=== PATIENT | male | born 1960 | race African-American/Black ===

== ENCOUNTER 2017-08-31 18:50 | Emergency (ER) | payer OTHER ==
[2017-08-31 19:13] VITALS: BP 156/90; PULSE 102; TEMP 100.6; BMI 22.1
--- NOTE | 2017-08-31 19:13 | PDOC ---
Rapid Medical Evaluation Chief Complaint: Respiratory Time Seen by Provider: 08/31/17 19:12 Medical Evaluation: Allergies Allergy/AdvReac Type Severity Reaction Status Date / Time No Known Allergies Allergy Verified 08/31/17 19:10 08/31/17 19:12 57yo Male patient with no significant past medical history presents to ED c/o cough, fever x 3 days that is worsening. + smoker.
--- NOTE | 2017-08-31 20:52 | PDOC ---
History of Present Illness - General Chief Complaint: Respiratory Stated Complaint: COUGHING Time Seen by Provider: 08/31/17 19:12 - History of Present Illness Initial Comments: 08/31/17 20:48 CHIEF COMPLAINT: cough HISTORY OF PRESENT ILLNESS: 57 yo M with no significant PMH presents to [facility] with cough x 3 days with fever. Patient denies vomiting or diarrhea and reports this feels like "when I have bronchitis sometimes." He denies any chest pain, palpitations, or shortness of breath. PAST MEDICAL HISTORY: Denies past medical history FAMILY HISTORY: Denies SOCIAL HISTORY: Current daily smokder. Denies alcohol, illicit drug use. SURGICAL HISTORY: Denies ALLERGIES: No known drug allergies REVIEW OF SYSTEMS General/Constitutional: Fever x 2 days. Denies weakness, weight change. HEENT: Denies change in vision. Denies ear pain or discharge. Denies sore throat. Cardiovascular: Denies chest pain or shortness of breath. Respiratory: Cough x 3 days. Denies wheezing, or hemoptysis. Gastrointestinal: Denies nausea, vomiting, diarrhea or constipation. Denies rectal bleeding. Genitourinary: Denies dysuria, frequency, or change in urination. Musculoskeletal: Denies joint or muscle swelling or pain. Denies neck or back pain. Skin and breasts: Denies rash or easy bruising. PHYSICAL EXAM General Appearance: Well-appearing, appropriately dressed. No apparent distress. HEENT: EOMI, PERRLA, normal ENT inspection, normal voice, TMs normal, pharynx normal. No conjunctival pallor. No photophobia, scleral icterus. Respiratory/Chest: Lungs CTAB. No shortness of breath, chest tenderness, respiratory distress, accessory muscle use. No crackles, rales, rhonchi, stridor , wheezing, dullness Cardiovascular: RRR. S1, S2. Gastrointestinal/Abdominal: Normal bowel sounds. Abdomen soft, non-distended. No tenderness or rebound tenderness. No organomegaly, pulsatile mass, guarding , hernia, hepatomegaly, splenomegaly. Musculoskeletal/Extremities: Normal inspection. FROM of all extremities, normal capillary refill. Pelvis Stable. No CVA tenderness. No tenderness to extremities, pedal edema, swelling, erythema or deformity. Integumentary: Appropriate color, dry, warm. No cyanosis, erythema, jaundice or rash Neurologic: balling head tender II-XII intact. Fully oriented, alert. Appropriate mood/affect. Motor strength 5/5. No appreciable EOM palsy, facial droop or sensory deficit. 08/31/17 20:52 Past History - Past Medical History Allergies/Adverse Reactions: Allergies Allergy/AdvReac Type Severity Reaction Status Date / Time No Known Allergies Allergy Verified 08/31/17 19:10 Home Medications: Ambulatory Orders Azithromycin [Zithromax 250mg Tablets -] 250 mg PO UTDICT #6 tab 08/31/17 Benzonatate [Tessalon Pearls -] 100 mg PO TID PRN #21 capsule 08/31/17 - Suicide/Smoking/Psychosocial Hx Smoking History: Current every day smoker Have you smoked in the past 12 months: Yes Number of Cigarettes Smoked Daily: 8 Information on smoking cessation initiated: No Hx Alcohol Use: No Drug/Substance Use Hx: No Substance Use Type: None *Physical Exam - Vital Signs Last Vital Signs Temp Pulse Resp BP Pulse Ox 100.6 F H 102 H 20 156/90 98 08/31/17 19:10 08/31/17 19:10 08/31/17 19:10 08/31/17 19:10 08/31/17 19:10 ED Treatment Course - ADDITIONAL ORDERS Additional order review: 08/31/17 19:15 Influenza Types A,B Antigen (GATITO) - Preliminary Nasopharyngeal Swab - Preliminary Medical Decision Making - Medical Decision Making 08/31/17 20:54 57 yo M with no significant PMH presents to [facility] with cough x 3 days with fever. -CXR CXR negative flu negative 08/31/17 20:54 Will treat for bronchitis. Advised patient to take medication as prescribed and follow up with PCP if symptoms persist]. Advised patient of signs and symptoms for return to ED. Patient verbalized understanding and agrees to plan. *DC/Admit/Observation/Transfer Diagnosis at time of Disposition: Bronchitis - Discharge Dispostion Disposition: HOME Condition at time of disposition: Stable Admit: No - Prescriptions Prescriptions: Azithromycin [Zithromax 250mg Tablets -] 250 mg PO UTDICT #6 tab Benzonatate [Tessalon Pearls -] 100 mg PO TID PRN #21 capsule PRN Reason: Cough - Referrals Referrals: Steve Rosen MD [Staff Physician] - - Patient Instructions Printed Discharge Instructions: DI for Acute Bronchitis Additional Instructions: Please take medications as prescribed. Follow up with a primary care doctor next week if symptoms persist. If you develop any shortness of breath, chest pain, vomiting, diarrhea, or any new or worsening symptoms, please return to the ER. - Post Discharge Activity
== END 2017-08-31 20:57 | disposition home or self-care (01) ==
LOC: JERFT 18:50
DX: J40 Bronchitis, not specified as acute or chronic (principal); F17.210 Nicotine dependence, cigarettes, uncomplicated
CPT/HCPCS: 71046-TC; 87804; 99281-25

== ENCOUNTER 2018-09-24 17:56 | Emergency (ER) | payer OTHER ==
--- NOTE | 2018-09-24 18:32 | PDOC ---
Rapid Medical Evaluation Time Seen by Provider: 09/24/18 18:29 Medical Evaluation: Allergies Allergy/AdvReac Type Severity Reaction Status Date / Time No Known Allergies Allergy Verified 10/12/17 16:54 09/24/18 18:29 Pt presents for constant cough for 2 weeks. States cough is productive. Denies fever Exam: lungs CTAB Orders: Nothing Pt to proceed to the ED for evaluation Discharge Disposition - Diagnosis Cough - Referrals - Patient Instructions - Post Discharge Activity
[2018-09-24 18:33] VITALS: BP 135/78; PULSE 90; TEMP 98.6; BMI 22.0
--- NOTE | 2018-09-24 19:30 | PDOC ---
History of Present Illness - General Chief Complaint: Cold Symptoms Stated Complaint: CAUGHING Time Seen by Provider: 09/24/18 18:29 History Source: Patient Exam Limitations: Clinical Condition - History of Present Illness Initial Comments: 09/24/18 19:25 Patient with no significant past medical history with smoking 7 cigarettes per day present with complaint of 2 weeks history of persistent dry cough, nasal congestion and runny nose. Patient denies shortness of breath, fever, chills or sore throat. Patient denies any other symptoms Timing/Duration: other (2 weeks) Past History - Past Medical History Allergies/Adverse Reactions: Allergies Allergy/AdvReac Type Severity Reaction Status Date / Time No Known Allergies Allergy Verified 09/24/18 18:32 Home Medications: Ambulatory Orders Azithromycin [Zithromax 250mg Tablets -] 250 mg PO UTDICT #6 tab 09/24/18 Ipratropium [place] 2 spray NS BID PRN #1 spray 09/24/18 Methylprednisolone [Medrol Dose Yazan] 4 mg PO ASDIR #21 tablet 09/24/18 COPD: No - Suicide/Smoking/Psychosocial Hx Smoking History: Current every day smoker Have you smoked in the past 12 months: Yes Number of Cigarettes Smoked Daily: 7 Information on smoking cessation initiated: Yes 'Breaking Loose' booklet given: 10/12/17 Hx Alcohol Use: No Drug/Substance Use Hx: No Substance Use Type: None Review of Systems - Review of Systems Able to Perform ROS?: Yes Is the patient limited Ethiopian proficient: No Constitutional: No: Chills, Fever, Malaise HEENTM: Yes: Symptoms Reported, See HPI, Nose Congestion. No: Eye Pain, Blurred Vision, Tearing, Recent change in vision, Double Vision, Cataracts, Ear Pain, Ocular Prothesis, Ear Discharge, Nose Pain, Tinnitus, Nose Bleeding, Hearing Loss, Throat Pain, Throat Swelling, Mouth Pain, Dental Problems, Difficulty Swallowing, Mouth Swelling, Other Respiratory: Yes: Symptoms reported, See HPI, Cough. No: Orthopnea, Shortness of Breath, SOB with Exertion, SOB at Rest, Stridor, Wheezing, Productive cough, Hemoptysis, Other Cardiac (ROS): No: Symptoms Reported, See HPI, Chest Pain, Edema, Irregular Heart Rate, Lightheadedness, Palpitations, Syncope, Chest Tightness, Other ABD/GI: No: Nausea, Vomiting Neurological: No: Headache, Dizziness All Other Systems: Reviewed and Negative *Physical Exam - Vital Signs Last Vital Signs Temp Pulse Resp BP Pulse Ox 98.6 F 90 20 135/78 97 09/24/18 18:32 09/24/18 18:32 09/24/18 18:32 09/24/18 18:32 09/24/18 18:32 - Physical Exam Comments: 09/24/18 19:26 GENERAL: Well developed, well nourished. Awake and alert. No acute distress. HEENT: Normocephalic, atraumatic. PERRLA, EOMI. No conjunctival pallor. Sclera are non-icteric. Moist mucous membranes. Oropharynx is clear. NECK: Supple. Full ROM. CARDIOVASCULAR: Regular rate and rhythm. No murmurs, rubs, or gallops. Distal pulses are 2+ and symmetric. PULMONARY: No evidence of respiratory distress. Lungs clear to auscultation bilaterally. No wheezing, rales or rhonchi. ABDOMINAL: Soft. Non-tender. Non-distended. No rebound or guarding. No organomegaly. Normoactive bowel sounds. MUSCULOSKELETAL Normal range of motion at all joints. SKIN: Warm and dry. no cyanosis. Normal capillary refill. No rashes. No jaundice. NEUROLOGICAL: Alert, awake, appropriate. Gait is normal without ataxia. PSYCHIATRIC: Cooperative. Good eye contact. Appropriate mood General Appearance: Yes: Nourished, Appropriately Dressed. No: Apparent Distress Moderate Sedation - Procedure Monitoring Vital Signs: Procedure Monitoring Vital Signs Temperature 98.6 F 09/24/18 18:32 Pulse Rate 90 09/24/18 18:32 Respiratory Rate 20 09/24/18 18:32 Blood Pressure 135/78 09/24/18 18:32 O2 Sat by Pulse Oximetry (%) 97 09/24/18 18:32 ED Treatment Course - RADIOLOGY Radiology Studies Ordered: Category Date Time Status CHEST PA & LAT [RAD] Stat Radiology 09/24/18 19:24 Ordered Medical Decision Making - Medical Decision Making 09/24/18 19:27 Patient with no significant past medical history with smoking 7 cigarettes per day present with complaint of 2 weeks history of persistent dry cough, nasal congestion and runny nose. Patient denies shortness of breath, fever, chills or sore throat. Lungs clear to auscultation bilateral. Normal cardiovascular exam. Chest x-ray ordered to rule out any acute infiltrate or pathology. Patient's symptoms likely URI symptoms versus bronchitis. Patient will be treated on an outpatient for bronchitis if negative chest x-ray 09/24/18 19:41 Chest x-ray normal and shows no acute infiltrate. Patient is stable for discharge for outpatient treatment for bronchitis with PCP follow-up. *DC/Admit/Observation/Transfer Diagnosis at time of Disposition: Cough, Bronchitis Upper respiratory infection Qualifiers: URI type: unspecified URI Qualified Code(s): J06.9 - Acute upper respiratory infection, unspecified - Discharge Dispostion Disposition: HOME Condition at time of disposition: Stable Decision to Admit order: No - Prescriptions Prescriptions: Azithromycin [Zithromax 250mg Tablets -] 250 mg PO UTDICT #6 tab Ipratropium [place] 2 spray NS BID PRN #1 spray PRN Reason: nasal congestion Methylprednisolone [Medrol Dose Yazan] 4 mg PO ASDIR #21 tablet - Referrals - Patient Instructions Printed Discharge Instructions: DI for Acute Bronchitis Additional Instructions: Your chest x-ray shows no pneumonia. Take medication as prescribed. Increase fluid intake. Follow-up with primary care as needed. - Post Discharge Activity
== END 2018-09-24 19:48 | disposition home or self-care (01) ==
LOC: JERFT 17:56
DX: J40 Bronchitis, not specified as acute or chronic (principal); J06.9 Acute upper respiratory infection, unspecified; F17.210 Nicotine dependence, cigarettes, uncomplicated
CPT/HCPCS: 71046-TC-FY; 99281-25

== ENCOUNTER 2018-10-30 15:07 | Emergency (ER) | payer OTHER ==
[2018-10-30 15:27] VITALS: BP 150/84; PULSE 88; TEMP 98.6; BMI 22.6
--- NOTE | 2018-10-30 16:46 | PDOC ---
History of Present Illness - General Chief Complaint: Cold Symptoms Stated Complaint: COUGH Time Seen by Provider: 10/30/18 16:24 - History of Present Illness Initial Comments: 10/30/18 16:42 58-year-old male without comorbidities presents for evaluation of nasal congestion and intermittent cough without fever times one month. Seen and treated at a month ago for bronchitis he hasn't gotten any better. He was treated with azithromycin. Past History - Past Medical History Allergies/Adverse Reactions: Allergies Allergy/AdvReac Type Severity Reaction Status Date / Time No Known Allergies Allergy Verified 10/30/18 15:23 Home Medications: Ambulatory Orders Azithromycin [Zithromax 250mg Tablets -] 250 mg PO UTDICT #6 tab 09/24/18 Ipratropium [place] 2 spray NS BID PRN #1 spray 09/24/18 Methylprednisolone [Medrol Dose Yazan] 4 mg PO ASDIR #21 tablet 09/24/18 Albuterol Sulfate [Proventil HFA Inhaler -] 1 - 2 inh PO QID PRN #1 inhaler 02/05 Azithromycin [Zithromax 250mg Tablets -] 250 mg PO DAILY #6 tab 09/25/18 Methylprednisolone [Medrol Dose Yazan] 4 mg PO ASDIR #21 tablet 09/25/18 Amox-Tr/K Cl [Augmentin - 875Mg Tablet] 1 tab PO BID #20 tablet 10/30/18 Budesonide [Rhinocort Allergy] 1 spray NS ONCE #1 spray.pump 10/30/18 COPD: No - Suicide/Smoking/Psychosocial Hx Smoking History: Current every day smoker Have you smoked in the past 12 months: Yes Number of Cigarettes Smoked Daily: 20 Information on smoking cessation initiated: No 'Breaking Loose' booklet given: 10/12/17 Hx Alcohol Use: No Drug/Substance Use Hx: No Substance Use Type: None Review of Systems - Review of Systems Constitutional: No: Fever HEENTM: Yes: Nose Congestion Respiratory: Yes: Cough *Physical Exam - Vital Signs Last Vital Signs Temp Pulse Resp BP Pulse Ox 98.6 F 88 18 150/84 98 10/30/18 15:24 10/30/18 15:24 10/30/18 15:24 10/30/18 15:24 10/30/18 15:24 - Physical Exam Comments: 10/30/18 16:42 HEAD: NC/AT EYES: Conjuntiva clear Ears: Canals and TM's normal NOSE: Clear discharge injected turbinates THROAT: Moist mucous membrances, oral pharanx clear, uvula midline NECK: Supple without adenopathy CARDIAC: S1 S2 LUNGS: CTA Full and Equal breath sounds ABDOMEN: Soft NT ND MS: Full ROM in all joints without edema NEUROLOGIC: No gross sensory or motor deficits, NVID SKIN: Normal color and temperature no lesions or rashes Moderate Sedation - Procedure Monitoring Vital Signs: Procedure Monitoring Vital Signs Temperature 98.6 F 10/30/18 15:24 Pulse Rate 88 10/30/18 15:24 Respiratory Rate 18 10/30/18 15:24 Blood Pressure 150/84 10/30/18 15:24 O2 Sat by Pulse Oximetry (%) 98 10/30/18 15:24 Medical Decision Making - Medical Decision Making 10/30/18 16:43 Second visit inside of a month I will have patient follow-up with ear nose and throat in the meantime I believe this to be a sinusitis I'll treat him with Augmentin and steroid nasal spray. *DC/Admit/Observation/Transfer Diagnosis at time of Disposition: Sinusitis - Discharge Dispostion Disposition: HOME Condition at time of disposition: Stable Decision to Admit order: No - Prescriptions Prescriptions: Amox-Tr/K Cl [Augmentin - 875Mg Tablet] 1 tab PO BID #20 tablet Budesonide [Rhinocort Allergy] 1 spray NS ONCE #1 spray.pump - Referrals Referrals: Leo Jackson MD [Staff Physician] - - Patient Instructions Printed Discharge Instructions: Sinusitis, DI for Sinusitis Additional Instructions: Return to the emergency room for worsening symptoms. Please follow-up with ear nose and throat doctor in 1-2 days for further evaluation and treatment options. Please take antibiotics as directed and finish the entire course and use the nasal spray as directed. - Post Discharge Activity
== END 2018-10-30 16:50 | disposition home or self-care (01) ==
LOC: JERFT 15:07
DX: J32.9 Chronic sinusitis, unspecified (principal); F17.210 Nicotine dependence, cigarettes, uncomplicated
CPT/HCPCS: 99281-25

== ENCOUNTER 2019-06-05 03:32 | Inpatient (IN) | payer OTHER ==
--- NOTE | 2019-06-05 04:48 | PDOC ---
History of Present Illness - General Chief Complaint: Pain Stated Complaint: ABD PAIN Time Seen by Provider: 06/05/19 04:46 History Source: Patient Exam Limitations: No Limitations - History of Present Illness Initial Comments: Crispin Caro is a 58 yo M who denies having any pmh who presents to the [facility] er with 2 weeks of worsening diffuse abdominal pain. The patient states that he has been seen for this pain in the past but it went away. Tonight it has gotten much worse than it has ever been before. He reports that the pain is primarily located in his luzma-umbilical region. He states the pain is pressure like like, rated 10/10, and does not radiate to the groin or the back. The patient has not been experiencing nausea, vomiting, diarrhea or constipation. He had a normal bowel movement last night. He denies decreased PO intake and is asking for water here in the ED. Denies fevers, chills, chest pain, SOB, difficulty breathing, dysuria, frequency , urgency, or back pain. PCP: None PSH: None reported Social Hx: Smokes ten cigarettes/day. Denies alcohol or other illicit drug usage. Allergies: NKA, NKDA Past History - Past Medical History Allergies/Adverse Reactions: Allergies Allergy/AdvReac Type Severity Reaction Status Date / Time No Known Allergies Allergy Verified 06/05/19 04:20 Home Medications: Ambulatory Orders Azithromycin [Zithromax 250mg Tablets -] 250 mg PO UTDICT #6 tab 09/24/18 Ipratropium [place] 2 spray NS BID PRN #1 spray 09/24/18 Methylprednisolone [Medrol Dose Yazan] 4 mg PO ASDIR #21 tablet 09/24/18 Albuterol Sulfate [Proventil HFA Inhaler -] 1 - 2 inh PO QID PRN #1 inhaler 02/05 Azithromycin [Zithromax 250mg Tablets -] 250 mg PO DAILY #6 tab 09/25/18 Methylprednisolone [Medrol Dose Yazan] 4 mg PO ASDIR #21 tablet 09/25/18 Amox-Tr/K Cl [Augmentin - 875Mg Tablet] 1 tab PO BID #20 tablet 10/30/18 Budesonide [Rhinocort Allergy] 1 spray NS ONCE #1 spray.pump 10/30/18 COPD: No - Psycho Social/Smoking Cessation Hx Smoking History: Never smoked Have you smoked in the past 12 months: Yes Number of Cigarettes Smoked Daily: 20 'Breaking Loose' booklet given: 10/12/17 Hx Alcohol Use: No Drug/Substance Use Hx: No Substance Use Type: None Review of Systems - Review of Systems Able to Perform ROS?: Yes Comments:: CONSTITUTIONAL: Absent: fever, chills, diaphoresis, generalized weakness, malaise, loss of appetite HEENT: Absent: rhinorrhea, nasal congestion, throat pain, throat swelling, difficulty swallowing, mouth swelling, ear pain, eye pain, visual Changes CARDIOVASCULAR: Absent: chest pain, syncope, palpitations, irregular heart rate, lightheadedness , peripheral edema RESPIRATORY: Absent: cough, shortness of breath, dyspnea with exertion, orthopnea, wheezing, stridor, hemoptysis GASTROINTESTINAL: Present: Abdominal pain, abdominal distension, Absent: nausea, vomiting, diarrhea, constipation, melena, hematochezia GENITOURINARY: Absent: dysuria, frequency, urgency, hesitancy, hematuria, flank pain, genital pain MUSCULOSKELETAL: Absent: myalgia, arthralgia, joint swelling SKIN: Absent: rash, itching, pallor HEMATOLOGIC/IMMUNOLOGIC: Absent: easy bleeding, easy bruising, lymphadenopathy, frequent infections ENDOCRINE: Absent: unexplained weight gain, unexplained weight loss, heat intolerance, cold intolerance NEUROLOGIC: Absent: headache, focal weakness or paresthesias, dizziness, unsteady gait, seizure, mental status changes, bladder or bowel incontinence PSYCHIATRIC: Absent: anxiety, depression, suicidal or homicidal ideation, hallucinations. *Physical Exam - Vital Signs Last Vital Signs Temp Pulse Resp BP Pulse Ox 99 F 105 H 16 160/95 99 06/05/19 04:16 06/05/19 04:16 06/05/19 04:16 06/05/19 04:16 06/05/19 04:16 - Physical Exam Comments: GENERAL: Has a scent of cigarettes. Skinny. Well developed, well nourished. Awake and alert. Mild distress. HEENT: Normocephalic, atraumatic. PERRLA, EOMI. No conjunctival pallor. Sclera are non- icteric. Moist mucous membranes. Oropharynx is clear. NECK: Supple. Full ROM. No JVD. CARDIOVASCULAR: Tachycardic rate. Regular rhythm. No murmurs, rubs, or gallops. Distal pulses are 2+ and symmetric. PULMONARY: No evidence of respiratory distress. Lungs clear to auscultation bilaterally. No wheezing, rales or rhonchi. ABDOMINAL: The abdomen is tense. There is diffuse pain to palpation. The patient is guarding his abdomen and he is experiencing rebound tenderness. Normoactive bowel sounds. MUSCULOSKELETAL Normal range of motion at all joints. No bony deformities or tenderness. No CVA tenderness. EXTREMITIES: No cyanosis. No clubbing. No edema. No calf tenderness. SKIN: Warm and dry. Normal capillary refill. No rashes. No jaundice. NEUROLOGICAL: Alert, awake. Normal speech. Gait is normal without ataxia. PSYCHIATRIC: Cooperative. Good eye contact. ED Treatment Course - LABORATORY CBC & Chemistry Diagram: 06/05/19 05:35 06/05/19 05:35 Medical Decision Making - Medical Decision Making Crispin Caro is a 58 yo M who denies having any pmh who presents to the [facility] er with 2 weeks of worsening diffuse abdominal pain. The patient states that he has been seen for this pain in the past but it went away. Tonight it has gotten much worse than it has ever been before. He reports that the pain is primarily located in his luzma-umbilical region. He states the pain is pressure like like, rated 10/10, and does not radiate to the groin or the back. The patient has not been experiencing nausea, vomiting, diarrhea or constipation. He had a normal bowel movement last night. He denies decreased PO intake and is asking for water here in the ED. Denies fevers, chills, chest pain, SOB, difficulty breathing, dysuria, frequency , urgency, or back pain. Vital Signs Temp Pulse Resp BP Pulse Ox 99 F 105 H 16 160/95 99 06/05/19 04:16 06/05/19 04:16 06/05/19 04:16 06/05/19 04:16 06/05/19 04:16 - Tachycardic - Hypertensive DDx IBNLT: peritonitis, appendicitis, diverticulitis, perforation, pancreatitis , colitis, cholecystitis, UTI/pylo, renal colic, electrolyte/metabolic disturbance Plan: Labs, EKG, Urine, CXR, CTAP, Iv hydration, analgesia, re-assess. CXR: No free air under the diaphragm EKG: Sinus tachycardia rate of 126, narrow complexes, left atrial enlargement, normal axis, no ST elevations or depressions, no Q waves, no abnormal TWI's, QTc 463, AR 130. Labs: Leukocytosis of 20 with left shift. Urine: Unremarkable CTAP: Emphysematous gastritis - Patient will be signed out to Dr. Licona on the Day team to complete ED workup including CTAP, urine, possible surgical consult, and final ED disposition Discharge - Discharge Information Problems reviewed: Yes Clinical Impression/Diagnosis: Emphysematous gastritis Abdominal pain Qualifiers: Abdominal location: generalized Qualified Code(s): R10.84 - Generalized abdominal pain Condition: Guarded - Admission Yes - Follow up/Referral - Patient Discharge Instructions - Post Discharge Activity
[2019-06-05] MEDS ORDERED: ACETAMINOPHEN 1000 MG/100 ML VIAL (NON FORMULARY) IVPB ONE (04:55)
[2019-06-05] MEDS ORDERED: SODIUM CHLORIDE 1,000 ML IV STA (04:55)
[2019-06-05] MEDS ORDERED: ONDANSETRON 4 MG/2 ML VIAL IVPUSH ONE (04:57)
[2019-06-05] MEDS ORDERED: ONDANSETRON 4 MG/2 ML VIAL ONE (05:33)
[2019-06-05] MEDS ORDERED: ACETAMINOPHEN INJECTION 100 ML IVPB ONE (05:47)
[2019-06-05 05:56] LABS: BASO % 0.3 % (0-2.0); EOS % 0.4 % (0-4.5); HEMATOCRIT 48.9 % (35.4-49); HEMOGLOBIN 16.4 GM/dL (11.7-16.9); LYMPH % 9.5 % (8-40); MCH 30.8 pg (25.7-33.7); MCHC 33.5 g/dl (32.0-35.9); MEAN CELL VOLUME 91.8 fl (80-96); MEAN PLT VOLUME 9.3 fl (7.5-11.1); NEUT % 86.8 % (42.8-82.8); PLATELET COUNT 299 K/MM3 (134-434); RBC 5.32 M/mm3 (4.00-5.60); RDW 13.8 % (11.9-15.9); WHITE BLOOD COUNT 20.6 K/mm3 (4.0-10.0)
[2019-06-05 06:03] LABS: INR 1.08 (0.83-1.09); PROTHROMBIN TIME (PATIENT) 12.8 SEC (9.7-13.0)
--- NOTE | 2019-06-05 06:08 | PDOC ---
Attending Attestation - Resident Resident Name: Darwin Sadler - ED Attending Attestation I have performed the following: I have examined & evaluated the patient, The case was reviewed & discussed with the resident, I agree w/resident's findings & plan, Exceptions are as noted - HPI HPI: 06/05/19 06:08 58 yo male no pmhx here with c/o abd pain. states his abd pain has been progressively getting worse for 2 weesk. no n/v last bm was yesterday. no f/c no mod factors. pain is generalized. suparpubic. sharp pressure. like no flank pain. no n/v. - Physicial Exam PE: 06/05/19 06:13 awake alert lungs clear bilat heart rrr no mrg abd soft bilat lower quad ttp with rebound and guarding. ext wwp no edema. no calf tendernesss. skin warm and dry. - Medical Decision Making 06/05/19 06:14 58 yo m with 2 weeks abo dpain, ttp on exam, pos rebound and guarding. differential apendicitis diverticulitis coliis. uti. plan ct a/p labs ua. pain contol ivf.
[2019-06-05 06:12] LABS: MAGNESIUM 1.8 mg/dL (1.8-2.4)
[2019-06-05 06:16] LABS: LIPASE 216 U/L (73-393)
[2019-06-05 06:18] LABS: ALBUMIN 3.8 g/dl (3.4-5.0); BILIRUBIN,TOTAL 0.4 mg/dL (0.2-1); BLOOD UREA NITROGEN 17.8 mg/dL (7-18); CALCIUM 9.7 mg/dL (8.5-10.1); CREATININE 1.1 mg/dL (0.55-1.3); POTASSIUM 4.9 mmol/L (3.5-5.1); TOT PROT 7.9 g/dl (6.4-8.2)
[2019-06-05 06:35] LABS: PLATELET ESTIMATE ADEQUATE
[2019-06-05] MEDS ORDERED: SODIUM CHLORIDE 0.9% 500 ML INFUS.BAG IV ONE (06:48)
[2019-06-05] MEDS ORDERED: morphine SULFATE 4 MG/ML VIAL ONE ×2 (06:52→11:56)
--- NOTE | 2019-06-05 07:20 | PDOC ---
*Physical Exam - Vital Signs Last Vital Signs Temp Pulse Resp BP Pulse Ox 99 F 105 H 16 160/95 99 06/05/19 04:16 06/05/19 04:16 06/05/19 04:16 06/05/19 04:16 06/05/19 04:16 ED Treatment Course - LABORATORY CBC & Chemistry Diagram: 06/05/19 05:35 06/05/19 05:35 - ADDITIONAL ORDERS Additional order review: Laboratory Results 06/05/19 06/05/19 06/05/19 05:35 05:35 05:35 PT with INR 12.80 INR 1.08 Sodium Potassium Chloride Carbon Dioxide Anion Gap BUN Creatinine Est GFR (CKD-EPI)AfAm Est GFR (CKD-EPI)NonAf Random Glucose Lactic Acid Calcium Phosphorus 3.0 Magnesium 1.8 Total Bilirubin AST ALT Alkaline Phosphatase Troponin I Total Protein Albumin Lipase Blood Type B POSITIVE Antibody Screen Negative 06/05/19 06/05/19 06/05/19 05:35 05:35 05:35 PT with INR INR Sodium 140 Potassium 4.9 Chloride 105 Carbon Dioxide 29 Anion Gap 6 L BUN 17.8 Creatinine 1.1 Est GFR (CKD-EPI)AfAm 85.91 Est GFR (CKD-EPI)NonAf 74.12 Random Glucose 114 H Lactic Acid 2.0 Calcium 9.7 Phosphorus Magnesium Total Bilirubin 0.4 AST 30 ALT 25 Alkaline Phosphatase 105 Troponin I < 0.02 Total Protein 7.9 Albumin 3.8 Lipase 216 Blood Type Antibody Screen 06/05/19 05:35 RBC 5.32 MCV 91.8 MCHC 33.5 RDW 13.8 MPV 9.3 Neutrophils % 86.8 H Lymphocytes % 9.5 Monocytes % 3.0 L Eosinophils % 0.4 Basophils % 0.3 - Medications Given in the ED: ED Medications Discontinued Medications Generic Name Dose Route Start Last Admin Trade Name Freq PRN Reason Stop Dose Admin Acetaminophen 1,000 mg 06/05/19 04:55 06/05/19 05:50 Ofirmev Injection - IVPB 06/05/19 04:56 1,000 mg ONCE ONE Administration Sodium Chloride 1,000 mls @ 1,000 mls/hr 06/05/19 04:55 06/05/19 05:30 Normal Saline - IV 06/05/19 05:54 1,000 mls/hr ASDIR STA Administration Ondansetron HCl 4 mg 06/05/19 04:57 06/05/19 05:30 Zofran Injection IVPUSH 06/05/19 04:58 4 mg ONCE ONE Administration Medical Decision Making - Medical Decision Making 06/05/19 07:[address] Sadler. Will f/u CT abd/pelvis, likely surgical consult and admit. 06/05/19 08:22 Spoke with radiologist, concern for enteritis, except with significant amount of ascites, more than would be expected. Also concern for potential prostate cancer, appears to be more than prostate hyperplasia. 06/05/19 09:[address] Antonio, will come see patient and admit for further workup. Discharge - Discharge Information Problems reviewed: Yes Clinical Impression/Diagnosis: Abdominal pain Condition: Fair - Follow up/Referral - Patient Discharge Instructions - Post Discharge Activity
[2019-06-05] MEDS ORDERED: FAMOTIDINE 20 MG/50 ML IVPB 20 MG/50 ML MG IVPB ONE ×2 (08:56→10:45)
[2019-06-05] MEDS ORDERED: MAG HYDROX/AL HYDROX/SIMETH 30 ML UNIT-DOSE CUP PO ONE (08:56)
[2019-06-05 09:13] LABS: PH,URINE 5.5 (5.0-8.0); URINE APPEARANCE CLEAR; URINE BILIRUBIN NEGATIVE (NEGATIVE); URINE COLOR YELLOW; URINE GLUCOSE (UA) NEGATIVE (NEGATIVE); URINE KETONE NEGATIVE (NEGATIVE); URINE LEUK ESTERASE NEGATIVE (NEGATIVE); URINE NITRITE NEGATIVE (NEGATIVE); URINE PROTEIN NEGATIVE (NEGATIVE); URINE UROBILINOGEN 0.2 mg/dL (0.2-1.0)
[2019-06-05] MEDS: morphine CARPU-JECT 4 MG/1 ML DISP.SYRIN IVPUSH ONE ×2 (10:44→11:45)
[2019-06-05] MEDS ORDERED: MAG HYDROX/AL HYDROX/SIMETH 30 ML UNIT-DOSE CUP ONE (10:45)
[2019-06-05] MEDS ORDERED: ONDANSETRON 4 MG/2 ML VIAL IVPUSH PRN (13:11)
[2019-06-05] MEDS ORDERED: LACTATED RINGERS SOLUTION 1,000 ML IV SCH (13:15)
[2019-06-05] MEDS ORDERED: PANTOPRAZOLE SODIUM 40 MG VIAL IVPUSH SCH (13:15)
--- NOTE | 2019-06-05 13:16 | HP ---
CHIEF COMPLAINT: Abdominal Pain PCP: None HISTORY OF PRESENT ILLNESS: Pt. is a 58 y.o. M w/o PMHx. presents with abdominal pain for the last few weeks. Pt. states that the pain has been going on for a few weeks at the level of the epigastrium but over the last week the pain moved down to the suprapubic region as well. Pt. states he was going to call a cab to the ED last night but the cab never arrive d and the pain briefly went away. Pt. then as he was going to bed, felt the pain come back stronger and was constant in the aforementioned areas Pt. now describes the pain as 10/ 10 and constant. Pt. denies any associated symptoms of nausea, vomiting, fever, chills, diarrhea, constipation, dysuria, polyuria, worsening or exacerbation with or without food, hematochezia, melena, hemoptysis, chest pain, or shortness of breath. Pt. denies ever having dark colored stools or vomiting blood ever. Pt denies ever having a colonoscopy, or having a primary care doctor. Pt. denies taking any medications. Pt. states his last bowel movement was last night. ER course was notable for: (1)EKG, Ofirmev, Mylanta, Pepcid (2)Morphine, NS 2L, Zofran (3) CT A/P, CXR Recent Travel: none, Moved from [place] when young (14) PAST MEDICAL HISTORY: 2 episodes of bronchitis PAST SURGICAL HISTORY: None Social History: Smokin/2 PPD for 40 years Alcohol: 2-3 beers per week Drugs: Denies Allergies No Known Allergies Allergy (Verified 06/05/19 04:20) HOME MEDICATIONS: Does not take any home medications REVIEW OF SYSTEMS As above PHYSICAL EXAMINATION Vital Signs - 24 hr 06/05/19 06/05/19 06/05/19 04:16 09:00 09:12 Temperature 99 F 98.2 F 99.5 F Pulse Rate 105 H 101 H Pulse Rate [ 104 H Left Radial] Respiratory 16 20 20 Rate Blood Pressure 160/95 121/80 Blood Pressure 159/90 [Right Arm] O2 Sat by Pulse 99 98 Oximetry (%) 06/05/19 10:00 Temperature Pulse Rate Pulse Rate [ Left Radial] Respiratory Rate Blood Pressure Blood Pressure [Right Arm] O2 Sat by Pulse 97 Oximetry (%) GENERAL: Awake, alert, and fully oriented, in severe distress 2/2 pain. HEAD: Normal with no signs of trauma. EYES: Pupils equal, round and reactive to light, extraocular movements intact, sclera anicteric, conjunctiva clear. EARS, NOSE, THROAT: Ears normal, nares patent, oropharynx clear without exudates. Moist mucous membranes. NECK: Normal range of motion, JVD, or masses. LUNGS: Breath sounds equal, clear to auscultation bilaterally. No wheezes, and no crackles. No accessory muscle use. HEART: Regular rate and rhythm, normal S1 and S2 without murmur, rub or gallop. ABDOMEN: BS+, dull to percussion, Exquisite tenderness to light touch and palpation. RECTAL: Good sphincter tone, no external or internal hemorrhoids, enlarged prostate but smooth, brown stool on glove MUSCULOSKELETAL: Normal range of motion at all joints. No CVA tenderness. UPPER EXTREMITIES: 2+ pulses, warm, well-perfused. No cyanosis. No clubbing. No peripheral edema. LOWER EXTREMITIES: 2+ dorsal pedal pulses, warm, well-perfused. No calf tenderness. No peripheral edema. NEUROLOGICAL: Cranial nerves II-XII grossly intact. Normal speech. Gait not assessed PSYCHIATRIC: Cooperative. Good eye contact. Appropriate mood and affect. SKIN: Warm, diaphoretic, normal turgor Laboratory Results - last 24 hr 06/05/19 06/05/19 06/05/19 05:35 05:35 05:35 WBC 20.6 H RBC 5.32 Hgb 16.4 Hct 48.9 MCV 91.8 MCH 30.8 MCHC 33.5 RDW 13.8 Plt Count 299 MPV 9.3 Absolute Neuts (auto) 17.8 H Total Counted 100 Neutrophils % 86.8 H Neutrophils % (Manual) 80.0 Band Neutrophils % 7.0 Lymphocytes % 9.5 Lymphocytes % (Manual) 11.0 Monocytes % 3.0 L Monocytes % (Manual) 2 L Eosinophils % 0.4 Basophils % 0.3 Nucleated RBC % 0 Platelet Estimate Adequate Platelet Comment No clotting detected PT with INR INR Sodium 140 Potassium 4.9 Chloride 105 Carbon Dioxide 29 Anion Gap 6 L BUN 17.8 Creatinine 1.1 Est GFR (CKD-EPI)AfAm 85.91 Est GFR (CKD-EPI)NonAf 74.12 Random Glucose 114 H Lactic Acid 2.0 Calcium 9.7 Phosphorus Magnesium Total Bilirubin 0.4 AST 30 ALT 25 Alkaline Phosphatase 105 Troponin I Total Protein 7.9 Albumin 3.8 Lipase Urine Color Urine Appearance Urine pH Ur Specific Kimberly Urine Protein Urine Glucose (UA) Urine Ketones Urine Blood Urine Nitrite Urine Bilirubin Urine Urobilinogen Ur Leukocyte Esterase Blood Type Antibody Screen 06/05/19 06/05/19 06/05/19 05:35 05:35 05:35 WBC RBC Hgb Hct MCV MCH MCHC RDW Plt Count MPV Absolute Neuts (auto) Total Counted Neutrophils % Neutrophils % (Manual) Band Neutrophils % Lymphocytes % Lymphocytes % (Manual) Monocytes % Monocytes % (Manual) Eosinophils % Basophils % Nucleated RBC % Platelet Estimate Platelet Comment PT with INR 12.80 INR 1.08 Sodium Potassium Chloride Carbon Dioxide Anion Gap BUN Creatinine Est GFR (CKD-EPI)AfAm Est GFR (CKD-EPI)NonAf Random Glucose Lactic Acid Calcium Phosphorus 3.0 Magnesium 1.8 Total Bilirubin AST ALT Alkaline Phosphatase Troponin I < 0.02 Total Protein Albumin Lipase 216 Urine Color Urine Appearance Urine pH Ur Specific Kimberly Urine Protein Urine Glucose (UA) Urine Ketones Urine Blood Urine Nitrite Urine Bilirubin Urine Urobilinogen Ur Leukocyte Esterase Blood Type Antibody Screen 06/05/19 06/05/19 05:35 07:45 WBC RBC Hgb Hct MCV MCH MCHC RDW Plt Count MPV Absolute Neuts (auto) Total Counted Neutrophils % Neutrophils % (Manual) Band Neutrophils % Lymphocytes % Lymphocytes % (Manual) Monocytes % Monocytes % (Manual) Eosinophils % Basophils % Nucleated RBC % Platelet Estimate Platelet Comment PT with INR INR Sodium Potassium Chloride Carbon Dioxide Anion Gap BUN Creatinine Est GFR (CKD-EPI)AfAm Est GFR (CKD-EPI)NonAf Random Glucose Lactic Acid Calcium Phosphorus Magnesium Total Bilirubin AST ALT Alkaline Phosphatase Troponin I Total Protein Albumin Lipase Urine Color Yellow Urine Appearance Clear Urine pH 5.5 Ur Specific Kimberly 1.036 H Urine Protein Negative Urine Glucose (UA) Negative Urine Ketones Negative Urine Blood Negative Urine Nitrite Negative Urine Bilirubin Negative Urine Urobilinogen 0.2 Ur Leukocyte Esterase Negative Blood Type B POSITIVE Antibody Screen Negative ASSESSMENT/PLAN: Pt. is a 58 y.o. M w/o PMHx. presents with abdominal pain for the last few weeks that has acutely worsened within the last week and most notable last night. 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 Sheffield) appreciated Surgery consult (Dr. Hines) appreciated ID consut ( Dr. Felton) appreciated Lipase: 216 Lactate: 2.0--> f/u repeat f/u BCx. Protonix 40mg IV daily Morphine for pain control f/u FOBT f/u stool cultures f/u Rpt. CT scan #Nicotine Dependence smoked 1/2 PPD will offer nicotine patch #FEN LR @ 125 monitor and replete PRN NPO Visit type - Emergency Visit Emergency Visit: Yes ED Registration Date: 06/05/19 Care time: The patient presented to the Emergency Department on the above date and was hospitalized for further evaluation of their emergent condition. - New Patient This patient is new to me today: Yes Date on this admission: 06/05/19 - Critical Care Critical Care patient: Yes Total Critical Care Time (in minutes): 45 Critical Care Statement: The care of this patient involved high complexity decision making to prevent further life threatening deterioration of the patient 's condition and/or to evaluate & treat vital organ system(s) failure or risk of failure. ATTENDING PHYSICIAN STATEMENT I saw and evaluated the patient. I reviewed the resident's note and discussed the case with the resident. I agree with the resident's findings and plan as documented. SUBJECTIVE: OBJECTIVE: ASSESSMENT AND PLAN:
[2019-06-05] MEDS ORDERED: morphine SULFATE 4 MG/ML VIAL IVPUSH ONE (13:17)
--- NOTE | 2019-06-05 13:18 | PN ---
Teaching Attending Note Name of Resident: Chapito Antonio ATTENDING PHYSICIAN STATEMENT I saw and evaluated the patient. I reviewed the resident's note and discussed the case with the resident. I agree with the resident's findings and plan as documented. SUBJECTIVE: CC: Abd pain. HPI: 58 y/o man with h/o nicotine dependence who presented with worsening abdominal pain. pain is located in mid abdomen, especially in mid area between pubis and umbilicus. pain started 4 weeks ago, was intermittent, lasted for 15 min at a time, and then resolved.No aggravating factors, but flatus, burping, and BMs helped relieve the pain in past. last night pain came on intense 05/29 for which he called a cab to come to ER, but pain resolved. Pain came back again and this time he came. He denies any N/V/d. last BM was last night. No melena or hematochezia. has no fever or chills. He denies recent travel. came to this country from [place] at age 14. No EGD or colonoscopy in past. No h/o IBD or cancer in family. he denies alcohol or drug use. smokes 1/2 pack daily. he denies NSAIDs use. In ER, he was given Morphine. WBC was 20. CT of abd/pelvis done OBJECTIVE: NAD , holding his abdomen. Dry MM. no facial droop. Cv: RRR, no MRG Lungs: CTAB Abd: rigidity. tenderness in all quadrants especially suprapubic area and LLQ. no rebound. hypoactive BS. Ext: No edema or erythema. thick silvery plaque on his L knee. eczematous lesions on dorsal feet Neuro: EOMI, no facial droop. round equal pupils, reactive to light, strength 5/ 5 in upper and lower extremities proximally and distally ( except fro hip flexion , limited due to abd pain ). sensation nl to light touch. Reflexes 2+ knee jerk and biceps Rectal By Dr. Antonio. enlarged prostate, no masses in rectum. No external or internal hemorrhoids. brown stool on examiner's finger. No guaiac card available to test. EKG: sinus tachy cxray and CT a bd reviewed. ASSESSMENT AND PLAN: 58 y/o man with h/o nicotine dependence who presented with worsening abdominal pain. 1- Abd pain: Not clear of the etiology. patient looks in pain with guarding on exam. Nl lactic acid. has white count which could be reactive to the initial process. - CT images reviewed. pancreas looked enlarged but no stranding, questionable mural air in stomach wall---> those findings were d/w Dr. Diaz who did not feel there was inflammation of pancreas or any mural air. No free air in peritoneal cavity. report reviewed. - DDx includes, gastritis, gastroenteritis, pancreatitis, to a lesser extent ischemia, but stranding around stomach and jejuneum is concerning. Doubt infectious/bacterial process. ? crohn's. No diarrhea, and no thickening in colon wall. diverticulitis or colitis were not completely r/o. - keep NPO - IV PPI - IVF - order lipase - repeat lactic acid - will consult GI. ? EGD - will consult sx . - hold off Abx for now. send blood cx and consult ID 2- L renal cyst : f/u as out pt 3- Enlarged prostate. f/u with PSA and uro as out pt 4- Hold off chemical DVT Px . add SCds
--- NOTE | 2019-06-05 13:20 | EKG ---
Test Reason : Blood Pressure : / mmHG Vent. Rate : 126 BPM Atrial Rate : 126 BPM P-R Int : 130 ms QRS Dur : 072 ms QT Int : 320 ms P-R-T Axes : 075 076 079 degrees QTc Int : 463 ms SINUS TACHYCARDIA POSSIBLE LEFT ATRIAL ENLARGEMENT BORDERLINE ECG NO PREVIOUS ECGS AVAILABLE Confirmed by OMID LUA MD ([id number]) on 06/05/2019 1:20:09 PM Referred By: Confirmed By:OMID LUA MD
[2019-06-05] MEDS ORDERED: ACETAMINOPHEN 1000 MG/100 ML VIAL (NON FORMULARY) IVPB PRN (13:29)
[2019-06-05] MEDS ORDERED: PROCHLORPERAZINE INJECTION 10 MG/2 ML VIAL IVPB PRN (14:29)
--- NOTE | 2019-06-05 15:28 | PN ---
Progress Note (short form) - Note Progress Note: ID consult dictated imp/reccd 58 yo man no prior PMH admitted with intermittent abdominal pain for several months, now with severe abdominal pain since yesterday no vomiting no diarrhea denies fever and chills +BM yesterday takes exedrin occasionally for the pain originally from [place], here since 2012 ct scan abd pelvis d/w dr Diaz air in wall of gastric fundus, thick gastric wall, ascites, ?enteritis, enlarged irregular prostate with nodules +cigarette use concern for surgical abdomen- ?ulcer perforation blood cultures hiv testing (patient agrees) zosyn further management per surgery/hospitalist service over 45 minutes spent in the care of this patient d/w radiology, GI, hospitalist, surgical PA Problem List - Problems (1) Abdominal pain Code(s): R10.9 - UNSPECIFIED ABDOMINAL PAIN Qualifiers: Abdominal location: generalized Qualified Code(s): R10.84 - Generalized abdominal pain (2) Peritonitis Code(s): K65.9 - PERITONITIS, UNSPECIFIED
--- NOTE | 2019-06-05 15:37 | CON.GI ---
Consult Consult Specialty:: GI Referred by:: Hospitalist Service Reason for Consultation:: Abdominal pain - History of Present Illness Chief Complaint: Abdominal pain History of Present Illness: 58M admitted through [facility] ER for evaluation of acute onset of severe diffuse abdominal pain. He is found to be sitting up as this helps with his pain. He explains that over the last 2-3 months, he has been experiencing intermittent mid abdominal pain that seemed to improve after drinking tea or eating. He was taking excedrin two pills daily and says that sometimes this helped alleviate the pain. Prior to this he was in his USOH. He denies associated nausea, vomiting, unintentional weight loss, food fear, diarrhea, rectal bleeding, change in bowel habits / stool caliber. his last bowel movement was last night. Last night, he describes sudden worsening of his pain that was "different than before". It became constant and much more intense prompting his ER visit. In the ED WBC was noted to be 20K. CT scan revealed thickened gastric wall, pelvic ascites, ? thickened jejunal loops, stool in right colon with collapsed transverse colon and enlarged / irregular appearing prostate. The CT scan was reviewed by Dr. Diaz. SMA/Celiac trunk appeared patent. There did appear to be air in the wall of the gastric fundus. There is no family history of colorectal cancer or other GI maligancny. He has never had an upper endoscopy or colonoscopy. Temp 101 this afternoon. - History Source History Provided By: Patient, Medical Record Limitations to Obtaining History: No Limitations - Past Medical History Additional Medical History: Denies - Past Surgical History Additional Surgical History: Denies - Alcohol/Substance Use Hx Alcohol Use: No History of Substance Use: reports: None - Smoking History Smoking history: Current every day smoker Have you smoked in the past 12 months: Yes Aproximately how many cigarettes per day: 20 - Social History Usual Living Arrangement: With Spouse ADL: Independent Occupation: [employer] Place of : Other ([place]) Came to [place] (year[place] 2012 History of Recent Travel: No Home Medications - Allergies Allergies/Adverse Reactions: Allergies Allergy/AdvReac Type Severity Reaction Status Date / Time No Known Allergies Allergy Verified 06/05/19 04:20 - Home Medications Home Medications: Ambulatory Orders Azithromycin [Zithromax 250mg Tablets -] 250 mg PO UTDICT #6 tab 09/24/18 Ipratropium Bartlett 2 spray NS BID PRN #1 spray 09/24/18 Methylprednisolone [Medrol Dose Yazan] 4 mg PO ASDIR #21 tablet 09/24/18 Albuterol Sulfate [Proventil HFA Inhaler -] 1 - 2 inh PO QID PRN #1 inhaler 02/05 Azithromycin [Zithromax 250mg Tablets -] 250 mg PO DAILY #6 tab 09/25/18 Methylprednisolone [Medrol Dose Yazan] 4 mg PO ASDIR #21 tablet 09/25/18 Amox-Tr/K Cl [Augmentin - 875Mg Tablet] 1 tab PO BID #20 tablet 10/30/18 Budesonide [Rhinocort Allergy] 1 spray NS ONCE #1 spray.pump 10/30/18 Family Medical History Family History: Unable to Obtain Other Family History: Mother: : 40's: Diabetic complications. Father: : unclear causes. 1 sister: : diabetic complications. 2 daughters, 1 son: healthy. No family history of colorectal cancer or other GI malignancy Review of Systems - Review of Systems Constitutional: denies: Fever Cardiovascular: denies: Chest Pain Genitourinary: reports: Frequency Physical Exam-GI Vital Signs: Vital Signs Temperature 101.5 F H 06/05/19 14:50 Pulse Rate 108 H 06/05/19 14:50 Respiratory Rate 20 06/05/19 14:50 Blood Pressure 158/90 06/05/19 14:50 O2 Sat by Pulse Oximetry (%) 97 06/05/19 10:00 Constitutional: Yes: Calm Eyes: No: Sclera Icterus Cardiovascular: Yes: Tachycardia. No: Murmur Respiratory: Yes: Diminished (at bases bilaterally, however patient splinting due to pain, with poor insp effort) Gastrointestinal Inspection: No: Distention, Scars ...Auscultate: Yes: Hypoactive Bowel Sounds ...Palpate: Yes: Guarding, Tenderness (diffusely to light palpation), Tenderness , Rebound ...Percussion: No: Tympanitic ...Rectal Exam: Yes: Other (No external lesions, no masses, scant light brown stool without blood/melena. enlarged and indurated prostate.) Edema: No (No LE edema) Labs: CBC, BMP 06/05/19 05:35 06/05/19 05:35 INR, PTT INR 1.08 (0.83-1.09) 06/05/19 05:35 Imaging - Results Cat Scan: Report Reviewed, Image Reviewed Problem List - Problems (1) Acute abdomen Assessment/Plan: In the setting of air in wall of the gastric fundus. ? if the intermittent pain Mr. Caro had been experiencing over the last couple of months was from peptic ulcer disease that has now perforated. He is acutely tender and now febrile. Advise: NPO IV Abx: patient evaluated by ID Surgical evaluation: surgical PA's were evaluating Mr. Caro at the time of my evaluation and communicating with Dr. Willoughby. He wanted a repeat CT scan performed without contrast. Protonix 40mg IVPB daily Will follow with you. Code(s): R10.0 - ACUTE ABDOMEN
[2019-06-05] MEDS ORDERED: PANTOPRAZOLE SODIUM 80 MG in SODIUM CHLORIDE 100 ML IVPB SCH (15:45)
[2019-06-05] MEDS: MORPHINE SULFATE 2 MG/ML VIAL IVPUSH PRN (15:47)
[2019-06-05] MEDS ORDERED: FLUCONAZOLE 200 MG/NS 100 ML IVPB ONE (15:51)
[2019-06-05] MEDS ORDERED: FLUCONAZOLE 200 MG/NS 100 ML IVPB SCH (16:00)
[2019-06-05] MEDS ORDERED: DEXTROSE 5%-WATER 100 ML IVPB ONE (16:07)
[2019-06-05] MEDS ORDERED: PIPERACILLIN/TAZOBACTAM 4.5 GM VIAL IVPB ONE (16:07)
[2019-06-05] MEDS: PIPERACILLIN/TAZOB 4.5 GM 4.5 GM in DEXTROSE 5%-WATER 100 ML IVPB SCH (16:10)
--- NOTE | 2019-06-05 18:29 | PN ---
Progress Note (short form) - Note Progress Note: surgery pt seen and examined. full consult dictated. 58m with severe abd pain since last night, now fever, wbc 20, and ct showing thickening of stomach with possible intramural air at fundus, ascites, and possible enteritis. Pt has 4 quadrant peritonitis on exam with guarding and rebound. repeat ct 9 hours later with oral contrast in stomach does not show overt perforation. official read pending. Pt offered exploratory surgery and declines. recommend protonix drip, zosyn, npo. prognosis guarded. I do not know the etiology of the patients peritonitis and sepsis.
--- NOTE | 2019-06-05 20:06 | CONS ---
DATE OF CONSULTATION: 06/05/2019 REASON FOR CONSULTATION: Acute abdomen. REQUESTING PHYSICIAN: This is an inpatient consultation as requested by the hospitalist service. BRIEF HISTORY: This is a 58-year-old male who has a history of smoking. For the last several weeks, he has had abdominal pain that he has treated with Excedrin. He states that yesterday, he felt well in the afternoon but by the evening, he had severe abdominal pain. He is a difficult historian. This pain persisted throughout the night. He came to the emergency room this morning. There, he had a CAT scan of his abdomen and pelvis which was initially read as showing moderate ascites. It was later re-read to show thickening of the gastric wall with possible air located within the wall of the stomach. No free air was noted. The possibility of enteritis was also entertained. The patient then developed a fever of 101.5 by 2 o'clock in the afternoon. On arrival to the emergency room this morning, his white blood cell count was 20,000. His BUN and creatinine were normal. His coagulation profile was unremarkable. His urinalysis was unremarkable. HIV testing is pending. The patient was admitted to the hospital for abdominal pain with concern for enteritis with ascites and also abnormalities of the prostate on CAT scan with possible prostate cancer. When the patient was examined by the hospitalist, he was found to have an acute abdomen and the request was made for surgical evaluation. At this point, an addendum was placed on the CAT scan, including the portion about possible air within the wall of the stomach. The patient was then seen and examined by [facility] surgical ED under my supervision, and was confirmed to have an acute abdomen. At my request, a repeat CAT scan was done with oral contrast. This study was done nine hours after the initial CAT scan. On my review, there remains no free air on the repeat CAT scan. The stomach is adequately distended with oral contrast and there is no obvious extravasation. Official reading is pending. There still remains ascites and there is air and stool within the right colon. PAST MEDICAL HISTORY: Significant for COPD. PAST SURGICAL HISTORY: He has had no surgeries. FAMILY HISTORY: Negative for malignancy in the immediate family. ALLERGIES: He has no known drug allergies. HOME MEDICATIONS: He takes no medications. REVIEW OF SYSTEMS: General: Denies fatigue or malaise. Cardiac: Denies chest pain or palpitations. Respiratory: Denies shortness of breath or wheeze. Gastrointestinal: As stated in the HPI. Denies nausea. Denies vomiting. Admits to flatus. Admits to a bowel movement last night. PHYSICAL EXAMINATION: General: This is a thin 58-year-old male in no distress. Vital signs: He is currently febrile at 100.8 with a T-max of 101.5. His heart rate is 108. His blood pressure is 160/91. His respiratory rate is 20. Head: Normocephalic. Sclerae are anicteric. Neck: Supple. Chest: Clear. Abdomen: His abdomen is mildly distended. There is voluntary guarding. He has four-quadrant peritoneal findings. He has no surgical scars. Extremities: No edema. Rectal: Rectal exam is deferred as it was already done today. ASSESSMENT: This is a 58-year-old male with abdominal symptoms over the last several weeks. He has been taking aspirin. He is a smoker. He now has severe pain since last night. He states his pain is better since he has been in the hospital. He has an acute abdomen as well as surgical findings on abdominal exam. His CAT scan is worrisome for ascites. He has fever and he has leukocytosis. The repeat CAT scan does not show an obvious perforation. At this point, based on his physical examination and clinical picture, I recommend exploratory surgery. The patient adamantly declines surgery. He states he does not want an operation and that he wishes to see if he continues to improve on his own. Therefore, I recommend a Protonix drip to treat him for potential severe gastritis as well as a possible ulcer, which is what is being seen as air within the wall of the stomach. I recommend continued IV antibiotics. Zosyn has been started by the ID service, which was a good choice. I would keep the patient NPO until his pain completely resolves. It is possible that this is some sort of enteritis. However, one does not usually get ascites and peritoneal findings. At this point, his prognosis is guarded. Hopefully, the patient will show significant improvement overnight as, in his mind, he feels he is already significantly improved. The patient understands in the strongest terms that I am not sure what his diagnosis is; that I am concerned and that without surgery, he may deteriorate and ultimately have a bad outcome, including . The patient understands this and declines surgery. DO DOMO RECINOS/[id number]
[2019-06-05] MEDS ORDERED: PT OWN MED DRAWER 7, Y5N ONE (20:52)
[2019-06-05] MEDS: PANTOPRAZOLE SODIUM 80 MG in SODIUM CHLORIDE 100 ML IVPB SCH (21:18)
[2019-06-06] MEDS ORDERED: PIPERACILLIN/TAZOBACTAM 4.5 GM VIAL IVPB ONE ×3 (01:03→16:42)
[2019-06-06] MEDS ORDERED: DEXTROSE 5%-WATER 100 ML IVPB ONE ×3 (01:03→16:42)
[2019-06-06] MEDS: PIPERACILLIN/TAZOB 4.5 GM 4.5 GM in DEXTROSE 5%-WATER 100 ML IVPB SCH ×3 (01:14→17:13)
[2019-06-06] MEDS ORDERED: PT OWN MED DRAWER 7, Y5N ONE ×3 (04:43→10:40)
[2019-06-06] MEDS: MORPHINE SULFATE 2 MG/ML VIAL IVPUSH PRN ×3 (05:04→22:45)
[2019-06-06] MEDS: PANTOPRAZOLE SODIUM 80 MG in SODIUM CHLORIDE 100 ML IVPB SCH (05:05)
[2019-06-06 07:12] LABS: HEMATOCRIT 43.5 % (35.4-49); HEMOGLOBIN 14.2 GM/dL (11.7-16.9); LYMPH % 4.3 % (8-40); MCH 30.4 pg (25.7-33.7); MCHC 32.6 g/dl (32.0-35.9); MEAN CELL VOLUME 93.1 fl (80-96); MEAN PLT VOLUME 9.5 fl (7.5-11.1); MONO % 3.7 % (3.8-10.2); PLATELET COUNT 265 K/MM3 (134-434); RBC 4.68 M/mm3 (4.00-5.60); RDW 14.1 % (11.9-15.9)
[2019-06-06 07:33] LABS: WHITE BLOOD COUNT 31.1 K/mm3 (4.0-10.0)
[2019-06-06 07:58] LABS: ALBUMIN 2.7 g/dl (3.4-5.0); BILIRUBIN,TOTAL 0.7 mg/dL (0.2-1); BLOOD UREA NITROGEN 16.8 mg/dL (7-18); CALCIUM 8.5 mg/dL (8.5-10.1); MAGNESIUM 2.2 mg/dL (1.8-2.4); PHOSPHOROUS 3.4 mg/dL (2.5-4.9); POTASSIUM 4.2 mmol/L (3.5-5.1); TOT PROT 5.9 g/dl (6.4-8.2)
[2019-06-06 08:18] LABS: CREATININE 1.2 mg/dL (0.55-1.3)
[2019-06-06] MEDS ORDERED: NICOTINE 7 MG/24 HOURS TOPICAL PATCH TD SCH ×2 (10:00)
[2019-06-06] MEDS ORDERED: NICOTINE 14 MG/24 HOURS TOPICAL PATCH TD SCH (10:02)
[2019-06-06 10:26] LABS: ANISOCYTOSIS 0; MACROCYTOSIS 0; PLATELET ESTIMATE NORMAL
--- NOTE | 2019-06-06 10:39 | PN.GI ---
GI Progress Note Subjective: Fever overnight Abdominal pain continues. Mr. Caro explains that the pain medication he receives help with the pain only for a couple of minutes Repeat CT scan reveals thickened gastric wall, no air in wall of stomach, thickened proximal jejunal loops. - Objective Vital Signs: Vital Signs Temperature 97.2 F L 06/06/19 05:45 Pulse Rate 107 H 06/06/19 05:45 Respiratory Rate 20 06/06/19 05:45 Blood Pressure 153/86 06/06/19 05:45 O2 Sat by Pulse Oximetry (%) 97 06/05/19 10:00 Constitutional: Calm Eyes: No: Sclera Icterus Cardiovascular: Yes: Tachycardia Respiratory: Yes: Diminished (However with splinting due to abdominal pain) Gastrointestinal Inspection: No: Scars ...Auscultate: Yes: No Bowel Sounds ...Palpate: Yes: Guarding, Tenderness (diffuse to minimal palpation), Tenderness , Rebound ...Percussion: No: Tympanitic Edema: No (No LE edema) Neurological: Yes: Alert Labs: CBC, BMP 06/06/19 05:50 06/06/19 05:50 INR, PTT INR 1.08 (0.83-1.09) 06/05/19 05:35 Hepatic Panel Total Bilirubin 0.7 mg/dL (0.2-1) 06/06/19 05:50 AST 9 U/L (15-37) L 06/06/19 05:50 ALT 14 U/L (13-61) 06/06/19 05:50 Alkaline Phosphatase 70 U/L (45-117) 06/06/19 05:50 Albumin 2.7 g/dl (3.4-5.0) L 06/06/19 05:50 Problem List - Problems (1) Acute abdomen Assessment/Plan: Acute abdomen with worsening leukocytosis, continued severe abdominal pain and peritoneal signs on abdominal exam Concern is for catastrophic intraabdominal process. ? perforated gastric uler despite CT scan findings, ? ongoing bowel ischemia. Explained this to Mr. Caro. He had discussion with Dr. Willoughby last night and refused surgery. I explained to Mr. Caro that at this point, given degree of abdominal pain and worsening leukocytosis, no improvement with supportive measures, I agreed that he needs to be explored surgically. I explained that his current process will likely lead to worsening of his clinical condition that could make surgical intervention riskier and could lead to . Despite explanation of the current critical clinical situation, Mr. Caro refused surgical intervention multiple times. I asked if he wanted me to speak to one of his family members such as his / children. He said no and that he would speak to his . I asked that he think about. Nicky Whelan, Surgical PA, was present during my converation. She discussed things with Mr. Caro as well with the same result. Advise: NPO IV Hydration Pain management IV Antibiotics Transfer to ICU Discussed plan and the above with Dr. Lipscomb Problems reviewed: Yes Code(s): R10.0 - ACUTE ABDOMEN
--- NOTE | 2019-06-06 11:11 | PN ---
Progress Note (short form) - Note Progress Note: continued abdominal pain refused surgery alert and oriented times 3 refuses to let us speak with any family memebers explained that he is no better, in fact worse with persistent abdominal pain and rising WBC count Vital Signs Period Temp Pulse Resp BP Sys/Ibrahim Pulse Ox Last 24 Hr 97.2 F-101.5 F 107-119 18-20 145-160/80-95 92 alert cor-rrr lungs clear abd no BS, diffuse tenderness to palpation throughout, +rebound ext no edema CBC, BMP 06/06/19 05:50 06/06/19 05:50 Microbiology 06/05/19 07:45 Urine - Urine Clean Catch Urine Culture - Final NO GROWTH OBTAINED ct scan results noted a/p concern for surgical abdomen- ?ulcer perforation, worsening intrabdominal process refused surgery last night and again this am aware that he could refusing to let me speak with family member continue fluids/continue zosyn management per surgery and GI blood cultures hiv testing (patient agrees) zosyn
[2019-06-06] MEDS ORDERED: LACTATED RINGERS SOLUTION 1,000 ML IV SCH (11:19)
[2019-06-06] MEDS ORDERED: PROCHLORPERAZINE INJECTION 10 MG/2 ML VIAL IVPB PRN (11:19)
--- NOTE | 2019-06-06 11:29 | CONS ---
INFECTIOUS DISEASE CONSULTATION DATE OF CONSULTATION: 06/05/2019 HISTORY: This is a 58-year-old man who presented to the ER with abdominal pain. On further history, the patient had been having intermittent pain all summer with worsening pain over the last month that became more severe on the day of admission. Yesterday, he denied any fevers and chills. He denied weight loss. He denied vomiting. There was no travel. He has been taking intermittent Excedrin, and he had a bowel movement that was normal on the day prior to admission. There was no blood in the stools. He denied any change in stool caliber. PAST MEDICAL HISTORY: Notable for bronchitis. He has no doctor. PAST SURGICAL HISTORY: He has never had any surgery. SOCIAL HISTORY: He came in 2012 from [place]. 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 He lives with his who is a home health aide. He smokes 1/2 pack per day. He drinks beer occasionally. No drug use. 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 ALLERGIES: No known drug allergies. MEDICATIONS: His only medicine he was taking was p.r.n. Excedrin. REVIEW OF SYSTEMS: He denies headache. He denies nausea or vomiting. He denies diarrhea, dysuria. He notes sometimes when he needs to urinate that he gets abdominal pain. PHYSICAL EXAMINATION: General: He is a thin man in no acute distress. Vital Signs: When I saw him were notable for a temperature of 99.5, pulse of 101, blood pressure 121/80, respiratory rate of 20, 61 kg. He is saturating 97% on room air. HEENT: He is normocephalic. His eyes are anicteric. There is no thrush. Neck: Supple. He has no meningeal signs. Lungs: Clear to auscultation. Heart: Regular rate and rhythm. Lymphatics: He has bilateral axillary adenopathy. Abdomen: No distention. It is firm. He has diminished breath sounds and diffuse tenderness on examination in all 4 quadrants with rebound. Extremities: Without edema. Labs are notable for a white count of 20,000, hemoglobin 16.4, platelets are 299. His INR is 1, BUN 17, creatinine 1.1. LFTs are normal. Urinalysis is negative. He had imaging study in the ER. He had a CT scan of his abdomen and pelvis that was notable for a small amount of air within the wall of the gastric fundus. This was noted on review of the CAT scan with the radiologist. He has bullous changes in the lungs. There is [id number] ascites. He has no bowel obstruction, intra-abdominal ascites, or pneumoperitoneum. The appendix is normal. The stomach is moderately thickened. He has proximal jejunal loops that are distended. Evaluation of the colon also showed transverse and left colon were entirely collapsed. He had prostatic enlargement with irregular enhancing nodules as well. In summary, this is a 58-year-old man with what appears to be a surgical abdomen with diffuse rebound, elevated white count, possible ulcer perforation. He has ascites as well. Would obtain blood cultures, HIV testing, start empiric Zosyn. He is being evaluated by surgery at this time. Further management per surgery and the hospitalist service. Case was discussed at least with GI surgery as well as the hospitalist and radiology. Over 45 minutes was spent in the care of this patient. We will follow with you. JOSE JOSEPH M.D. [id number]
--- NOTE | 2019-06-06 11:33 | CONSULT ---
Consultation: REQUESTING PROVIDER: Dr. Antonio CONSULT REQUEST: We have been asked to medically evaluate this patient for gastric air. HISTORY OF PRESENT ILLNESS: 58 y/o M with PMH nicotine dependence who presented for acute abdominal pain over the last day. Per pt, he initially had this pain over the past few weeks. States that it was severe, in his mid-epigastrium, without radiation. Was initially intermittent and has since become constant. Is not a/w nausea or emesis. Pain is alleviated by drinking hot tea with honey. Has 4 cups of tea daily. Does not know what exacerbates pain. No other inciting fx. No recent procedures, has never had a colonoscopy or an EGD. No hx constipation or diarrhea. Does endorse frequent excedrin use for headaches. 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 Repeat CTAP shows moderate thickening of gastric body and antrum, suspicious for infectious vs. infiltrative process. On this repeat scan, no gross gastric wall air is identified. Pt is currently hemodynamically stable. ICU is consulted for management of potential gastric air, close monitoring of hemodynamics. PMH: as above PsxH: denies meds: as in chart allergies: NKDA FH: denies family hx SH: smokes 1/2 ppd x 40 yrs, alcohol - 2-3 beers/ wk, denies drug use. moved from [place] when he was young REVIEW OF SYSTEMS: +abdominal pain PHYSICAL EXAMINATION Vital Signs - 24 hr 06/05/19 06/05/19 06/05/19 14:50 16:20 22:00 Temperature 101.5 F H 100.8 F H 99.4 F Pulse Rate 108 H 119 H 119 H Respiratory 20 20 20 Rate Blood Pressure 158/90 160/91 146/80 O2 Sat by Pulse Oximetry (%) 06/06/19 06/06/19 06/06/19 05:45 09:00 10:58 Temperature 97.2 F L 98.5 F Pulse Rate 107 H 112 H 116 H Respiratory 20 18 18 Rate Blood Pressure 153/86 145/95 154/90 O2 Sat by Pulse 92 L Oximetry (%) GENERAL: resting in bed, in mild distress HEENT: normocephalic, atraumatic Neck: supple Cardio: s1, s2. rrr no r/m/g pulm: cta b/l. no accessory m usage abdomen: +rigid. w/ tenderness LLQ, LUQ. hypoactive bowel sounds LE: 2+ pulses. no edema Laboratory Tests 06/05/19 06/05/19 06/06/19 07:45 16:00 05:50 WBC 31.1 H* Hgb 14.2 Hct 43.5 Plt Count 265 Sodium ALT Urine Protein Negative Urine Glucose (UA) Negative Urine Ketones Negative Urine Blood Negative Urine Nitrite Negative HIV 1&2 Ag/Ab, 4th Gen Pending 06/06/19 05:50 Hct Plt Count Sodium 141 Potassium 4.2 Chloride 105 Anion Gap 10 BUN 16.8 Creatinine 1.2 Random Glucose 128 H AST 9 L ALT 14 Urine Protein ASSESSMENT/PLAN: 58 y/o M with PMH nicotine dependence who presented for acute abdominal pain over the last day. ICU is consulted for management of potential gastric air, close monitoring of hemodynamics. #Neuro -AAO x 3, intact #GI Acute abdomen possible 2/2 peptic ulcer perf -pt refusing ex lap and is aware of risks, benefits of sx. sx on board, Dr. Willoughby -w/worsening leukocytosis -for now, c/w NPO -abx per ID: currently on flagyl, zosyn, fluconazole -f/u blood cx, ucx -initial lactic 4.2, repeat. on LR 150 cc/hr -protonix gtt -IV tylenol PRN for fever -pain control w/ morphine 2mg IVP q4h PRN -f/u KUB to check for change -GI, sx on board #F/E/N IV LR 150 cc/hr continue to follow lytes NPO #PPX DVT: SCD's in case of need of urgent intervention/pt changes mind about sx #Dispo admit to ICU Dispo: We will continue to follow the patient. Thank you for this consultative opportunity. Visit type - Emergency Visit Emergency Visit: Yes ED Registration Date: 06/05/19 Care time: The patient presented to the Emergency Department on the above date and was hospitalized for further evaluation of their emergent condition. - New Patient This patient is new to me today: Yes Date on this admission: 06/06/19 - Critical Care Critical Care patient: Yes Total Critical Care Time (in minutes): 45 Critical Care Statement: The care of this patient involved high complexity decision making to prevent further life threatening deterioration of the patient 's condition and/or to evaluate & treat vital organ system(s) failure or risk of failure.
--- NOTE | 2019-06-06 12:50 | PN ---
Teaching Attending Note Name of Resident: Patrizia Loo ATTENDING PHYSICIAN STATEMENT I saw and evaluated the patient. I reviewed the resident's note and discussed the case with the resident. I agree with the resident's findings and plan as documented. SUBJECTIVE: Patient seen and examined in the ICU. 58 M, nicotine dependence. Admitted via the ER due to acute abdominal pain over the last day. 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 Repeat CTAP shows moderate thickening of gastric body and antrum, suspicious for infectious vs. infiltrative process, no gross gastric wall air is identified. He has refused surgical intervention. Transferred for closer monitoring. Denies CP or SOB. His hemodynamics are currently stable. Intake & Output 06/03/19 06/04/19 06/05/19 06/06/19 23:59 23:59 23:59 23:59 Intake Total 400 1200 Balance 400 1200 Weight 136 lb 4.8 oz Last Vital Signs Temp Pulse Resp BP Pulse Ox 99.4 F 112 H 20 163/94 92 L 06/06/19 11:45 06/06/19 11:45 06/06/19 11:45 06/06/19 11:45 06/06/19 09:00 Active Medications Acetaminophen (Ofirmev Injection -) 1,000 mg IVPB Q6H PRN PRN Reason: Fever Chlorhexidine Gluconate (Hibiclens For Decolonization -) 1 applic TP HS [place] Lactated Ringer's (Lactated Ringers Solution) 1,000 mls @ 125 mls/hr IV ASDIR [place] Pantoprazole Sodium 80 mg/ (Sodium Chloride) 100 mls @ 10 mls/hr IVPB Q10H [place] Piperacillin Sod/Tazobactam (Sod 4.5 gm/ Dextrose) 100 mls @ 200 mls/hr IVPB Q8H-IV [place]; Protocol Morphine Sulfate (Morphine Sulfate) 2 mg IVPUSH Q4H PRN PRN Reason: PAIN LEVEL 7 - 10 Mupirocin (Bactroban Ointment (For Decolonization) -) 1 applic NS BID [place] Stop: 06/11/19 21:59 Nicotine (Nicoderm Patch -) 14 mg TD DAILY [place] Prochlorperazine Edisylate (Compazine Injection -) 10 mg IVPB Q4H PRN PRN Reason: NAUSEA AND/OR VOMITING Constitutional: NAD Eyes: No: Sclera Icterus Cardiovascular: Yes: Tachycardia Respiratory: Yes: Diminished at the bases Gastrointestinal: diffuse tenderness to palpation, (+) rebound, hypoactive BS Edema: No edema Neurological: Yes: Alert, non-focal Labs: Laboratory Tests 06/05/19 06/05/19 06/06/19 07:45 16:00 05:50 WBC 31.1 H* Hgb 14.2 Hct 43.5 Plt Count 265 Sodium ALT Urine Protein Negative Urine Glucose (UA) Negative Urine Ketones Negative Urine Blood Negative Urine Nitrite Negative HIV 1&2 Ag/Ab, 4th Gen Pending 06/06/19 05:50 Hct Plt Count Sodium 141 Potassium 4.2 Chloride 105 Anion Gap 10 BUN 16.8 Creatinine 1.2 Random Glucose 128 H AST 9 L ALT 14 Urine Protein ASSESSMENT/PLAN: (1) Acute abdomen IMP: Acute abdomen R/O Perforation R/O Infectious process Nicotene dependence IVF ABX per ID O2 as needed Mechanical VTE prophylaxis Pain control NPO Patient has been made aware of the possibility of if he does not agree to surgical intervention Requires ICU monitoring Dr Stoner Critical care time spent in reviewing chart, evaluating patient and formulating plan - 36 minutes.
--- NOTE | 2019-06-06 13:07 | PN ---
Progress Note (short form) - Note Progress Note: Pt seen for follow-up care regarding his surgical plan after discussing the case with Dr. Willoughby. The patient states that he is still having pain, when lying in bed and with ambulation. Pain medications offer a small amount of relief. NO emesis. Myself and Dr. Adam spent greater than 15 minutes explaining his current medical condition to him, treatment he is receiving and recommendations. He is not at this time agreeable to surgery. Vital Signs Period Temp Pulse Resp BP Sys/Ibrahim Pulse Ox Last 24 Hr 97.2 F-101.5 F 107-119 18-20 145-163/80-95 92-92 GEN: A&0x3 ABD: flat, tender in all 4 quadrants with light palpation and rebound. CBC, BMP 06/06/19 05:50 06/06/19 05:50 Laboratory Tests 06/05/19 06/06/19 13:13 10:50 Lactic Acid 1.9 4.2 H* A/P: 58 yo male with peritonitis/acute abdomen. Refusing surgical intervention. He did give us permission to speak with his family. Dr. Willoughby spoke with his , the patient is still refusing surgery. Please reconsult as needed. Continue supportive measures, the patient is being transferred to the ICU for closer observation. Continue npo/iv hydration IV pain medications IV abx, zosyn and diflucan Protonix drip D/w Dr. Willoughby
--- NOTE | 2019-06-06 13:21 | PN ---
Teaching Attending Note Name of Resident: Karley Keen ATTENDING PHYSICIAN STATEMENT I saw and evaluated the patient. I reviewed the resident's note and discussed the case with the resident. I agree with the resident's findings and plan as documented. SUBJECTIVE: seen at 9:30 No fever this am , no chills, HE received pain meds this am , but now feels his pain is better. No diarrhea, no N/V . OBJECTIVE: NAD. Dry MM. cooperative Cv: RRR, no MRG Lungs: CTAB Abd: Rigidity. Tenderness suprapubic area, LLQ, L UQ and periumbilical area. no rebound. hypoactive BS. Ext: No edema or erythema. thick silvery plaque on his L knee. eczematous lesions on dorsal feet ASSESSMENT AND PLAN: 58 y/o man with h/o nicotine dependence who presented with worsening abdominal pain. he was found to have peritonitis 1- Acute peritonitis: with possible Peptic ulcer perforation. other possibilities like ischemia , ETC are not completely excluded - leukocytosis is worsening oon Abx. Lactic acidosis---> worse - cont NPO - repeated lactic is higher, will increase IVF. - repeat lactic again - cont PPI - Obtain KUB - follow blood cx - discussed with patient the need for surgical exploration, to avoid worsening in condition, severe sepsis, and . He declines sx without providing a reason. - He gave permission to speak to . team will discuss - case was d/w Surgical team , ID, and GI 2- L renal cyst : f/u as out pt 3- Enlarged prostate. f/u with PSA and uro as out pt 4- SCds in case he needs urgent intervention if he crashes and agrees to sx Tx to ICU. CCT 34 min Critical Care Total Critical Care Time (in minutes): 34 Critical Care Statement: The care of this patient involved high complexity decision making to prevent further life threatening deterioration of the patient 's condition and/or to evaluate & treat vital organ system(s) failure or risk of failure.
[2019-06-06] MEDS: LACTATED RINGERS SOLUTION 1,000 ML IV SCH (14:00)
[2019-06-06] MEDS ORDERED: PANTOPRAZOLE SODIUM 80 MG in SODIUM CHLORIDE 100 ML IVPB SCH (14:15)
--- NOTE | 2019-06-06 14:17 | PN ---
Progress Note (short form) - Note Progress Note: surgery pt has had no further fevers but rise in wbc and mild lactic acidosis. repeat ct read as no perforated ulcer and instead enteritis of infectious, inflammatory , or ischemic in nature. BP normal. Pt declines surgical intervention. I had long conversation with who also wishes to avoid surgery. They assume all risk or avoiding surgery and at the same time there is no guarantee that surgery would be diagnostic or therapeutic. cont ivf, abx, ppi. will be available if patient wants exploratory surgery.
[2019-06-06] MEDS: ACETAMINOPHEN 1000 MG/100 ML VIAL (NON FORMULARY) IVPB PRN ×2 (15:05→20:00)
[2019-06-06] MEDS ORDERED: FLUCONAZOLE 200 MG/D5W 100 ML IVPB ONE (15:19)
[2019-06-06] MEDS: PANTOPRAZOLE SODIUM 160 MG in SODIUM CHLORIDE 290 ML IVPB SCH (16:00)
[2019-06-06] MEDS: FLUCONAZOLE 200 MG/D5W 100 ML IVPB SCH (16:57)
--- NOTE | 2019-06-06 17:51 | PN ---
Physical Exam: SUBJECTIVE: Patient seen and examined OBJECTIVE: Vital Signs Period Temp Pulse Resp BP Sys/Ibrahim Pulse Ox Last 24 Hr 97.2 F-100.8 F 107-119 18-26 142-176/80-95 92-95 GENERAL: The patient is awake, alert, and fully oriented, in no acute distress. HEAD: Normal with no signs of trauma. EYES: PERRL, extraocular movements intact, sclera anicteric, conjunctiva clear. No ptosis. ENT: Ears normal, nares patent, oropharynx clear without exudates, moist mucous membranes. NECK: Trachea midline, full range of motion, supple. LUNGS: Breath sounds equal, clear to auscultation bilaterally, no wheezes, no crackles, no accessory muscle use. HEART: Regular rate and rhythm, S1, S2 without murmur, rub or gallop. ABDOMEN: Soft, nontender, nondistended, normoactive bowel sounds, no guarding, no rebound, no hepatosplenomegaly, no masses. EXTREMITIES: 2+ pulses, warm, well-perfused, no edema. NEUROLOGICAL: Cranial nerves II through XII grossly intact. Normal speech, gait not observed. PSYCH: Normal mood, normal affect. SKIN: Warm, dry, normal turgor, no rashes or lesions noted Laboratory Results - last 24 hr 06/06/19 06/06/19 06/06/19 05:50 05:50 10:50 WBC 31.1 H* RBC 4.68 Hgb 14.2 Hct 43.5 MCV 93.1 MCH 30.4 MCHC 32.6 RDW 14.1 Plt Count 265 MPV 9.5 Absolute Neuts (auto) 28.6 H Neutrophils % 92.0 H Neutrophils % (Manual) 60.2 Band Neutrophils % 29.6 Lymphocytes % 4.3 L D Lymphocytes % (Manual) 4.1 L Monocytes % 3.7 L Monocytes % (Manual) 4 Eosinophils % 0.0 D Eosinophils % (Manual) 0.0 Basophils % 0.0 Basophils % (Manual) 0.0 Myelocytes % (Man) 0 Promyelocytes % (Man) 0 Blast Cells % (Manual) 0 Nucleated RBC % 0 Metamyelocytes 1 Hypochromia 0 Platelet Estimate Normal Polychromasia 0 Poikilocytosis 0 Anisocytosis 0 Microcytosis 0 Macrocytosis 0 Sodium 141 Potassium 4.2 Chloride 105 Carbon Dioxide 26 Anion Gap 10 BUN 16.8 Creatinine 1.2 Est GFR (CKD-EPI)AfAm 77.33 Est GFR (CKD-EPI)NonAf 66.72 Random Glucose 128 H Lactic Acid 4.2 H* Calcium 8.5 Phosphorus 3.4 Magnesium 2.2 Total Bilirubin 0.7 AST 9 L ALT 14 Alkaline Phosphatase 70 Total Protein 5.9 L Albumin 2.7 L Active Medications Generic Name Dose Route Start Last Admin Trade Name Freq PRN Reason Stop Dose Admin Acetaminophen 1,000 mg 06/06/19 11:19 06/06/19 15:05 Ofirmev Injection - IVPB 1,000 mg Q6H PRN Administration Fever Chlorhexidine Gluconate 1 applic 06/06/19 22:00 Hibiclens For Decolonization - TP HS [place] Piperacillin Sod/Tazobactam 100 mls @ 200 mls/hr 06/06/19 18:00 06/06/19 17: 13 Sod 4.5 gm/ Dextrose IVPB 200 mls/hr Q8H-IV [place] Administration Protocol Lactated Ringer's 1,000 mls @ 150 mls/hr 06/06/19 13:21 06/06/19 14:00 Lactated Ringers Solution IV 150 mls/hr ASDIR [place] Administration Metronidazole 500 mg in 100 mls @ 100 mls/hr 06/06/19 14:30 06/06/19 17:13 Flagyl 500mg Premixed Ivpb - IVPB 100 mls/hr Q8H-IV [place] Administration Fluconazole 100 mls @ 100 mls/hr 06/06/19 15:20 06/06/19 16:57 Diflucan 200 Mg/D5w Premixed Ivpb - IVPB 100 mls/hr DAILY [place] Administration Pantoprazole Sodium 160 mg/ 290 mls @ 14.5 mls/hr 06/06/19 16:00 Sodium Chloride IVPB Q20H [place] Morphine Sulfate 2 mg 06/06/19 11:19 Morphine Sulfate IVPUSH Q4H PRN PAIN LEVEL 7 - 10 Mupirocin 1 applic 06/06/19 22:00 Bactroban Ointment (For Decolonization) - NS 06/11/19 21:59 BID [place] Nicotine 14 mg 06/07/19 10:00 Nicoderm Patch - TD DAILY [place] Prochlorperazine Edisylate 10 mg 06/06/19 11:19 Compazine Injection - IVPB Q4H PRN NAUSEA AND/OR VOMITING ASSESSMENT/PLAN: ATTENDING PHYSICIAN STATEMENT I saw and evaluated the patient. I reviewed the resident's note and discussed the case with the resident. I agree with the resident's findings and plan as documented. SUBJECTIVE: OBJECTIVE: ASSESSMENT AND PLAN:
[2019-06-06] MEDS: MUPIROCIN 2% TOPICAL OINTMENT FOR DECOLONIZATION NS SCH (21:11)
[2019-06-06] MEDS: CHLORHEXIDINE GLUCONATE 4% CLEANSER FOR DECOLONIZATION TP SCH (21:11)
[2019-06-06 23:07] LABS: BASO % 0.2 % (0-2.0); HEMATOCRIT 41.3 % (35.4-49); HEMOGLOBIN 13.4 GM/dL (11.7-16.9); LYMPH % 4.4 % (8-40); MCH 29.9 pg (25.7-33.7); MCHC 32.5 g/dl (32.0-35.9); MEAN CELL VOLUME 92.2 fl (80-96); MEAN PLT VOLUME 9.3 fl (7.5-11.1); MONO % 3.8 % (3.8-10.2); NEUT % 91.6 % (42.8-82.8); PLATELET COUNT 251 K/MM3 (134-434); RBC 4.48 M/mm3 (4.00-5.60); RDW 13.9 % (11.9-15.9)
[2019-06-06 23:14] LABS: WHITE BLOOD COUNT 32.5 K/mm3 (4.0-10.0)
[2019-06-06 23:47] LABS: PLATELET ESTIMATE NORMAL
[2019-06-07] MEDS ORDERED: PIPERACILLIN/TAZOBACTAM 4.5 GM VIAL IVPB ONE ×3 (00:26→17:41)
[2019-06-07] MEDS ORDERED: DEXTROSE 5%-WATER 100 ML IVPB ONE ×3 (00:26→17:41)
[2019-06-07] MEDS: LACTATED RINGERS SOLUTION 1,000 ML IV SCH ×3 (01:06→14:30)
[2019-06-07] MEDS: PIPERACILLIN/TAZOB 4.5 GM 4.5 GM in DEXTROSE 5%-WATER 100 ML IVPB SCH ×3 (01:06→18:17)
[2019-06-07] MEDS: MORPHINE SULFATE 2 MG/ML VIAL IVPUSH PRN ×3 (04:12→22:04)
[2019-06-07] MEDS: ACETAMINOPHEN 1000 MG/100 ML VIAL (NON FORMULARY) IVPB PRN ×2 (06:24→13:13)
[2019-06-07 06:57] LABS: BASO % 0.1 % (0-2.0); HEMATOCRIT 38.4 % (35.4-49); HEMOGLOBIN 12.8 GM/dL (11.7-16.9); LYMPH % 5.3 % (8-40); MCH 30.4 pg (25.7-33.7); MCHC 33.4 g/dl (32.0-35.9); MEAN PLT VOLUME 9.8 fl (7.5-11.1); MONO % 3.8 % (3.8-10.2); NEUT % 90.8 % (42.8-82.8); PLATELET COUNT 251 K/MM3 (134-434); RBC 4.22 M/mm3 (4.00-5.60); RDW 13.9 % (11.9-15.9)
[2019-06-07 07:18] LABS: ALBUMIN 2.3 g/dl (3.4-5.0); BILIRUBIN,TOTAL 0.5 mg/dL (0.2-1); BLOOD UREA NITROGEN 16.2 mg/dL (7-18); CALCIUM 8.2 mg/dL (8.5-10.1); CREATININE 0.9 mg/dL (0.55-1.3); MAGNESIUM 2.1 mg/dL (1.8-2.4); PHOSPHOROUS 2.4 mg/dL (2.5-4.9); POTASSIUM 3.8 mmol/L (3.5-5.1); TOT PROT 5.5 g/dl (6.4-8.2)
[2019-06-07 07:19] LABS: WHITE BLOOD COUNT 30.5 K/mm3 (4.0-10.0)
[2019-06-07 07:36] LABS: INR 1.2 (0.83-1.09); PROTHROMBIN TIME (PATIENT) 14.2 SEC (9.7-13.0)
--- NOTE | 2019-06-07 08:19 | PN ---
Progress Note (short form) - Note Progress Note: PULM/CCM Patient seen and examined in the ICU. Improving abd discomfort, hemodynamics remain stable. Patient continues to refuse surgical intervention. Active Medications Acetaminophen (Ofirmev Injection -) 1,000 mg IVPB Q6H PRN PRN Reason: Fever Last Admin: 06/07/19 06:24 Dose: 1,000 mg Chlorhexidine Gluconate (Hibiclens For Decolonization -) 1 applic TP HS [place] Last Admin: 06/06/19 21:11 Dose: 1 applic Piperacillin Sod/Tazobactam (Sod 4.5 gm/ Dextrose) 100 mls @ 200 mls/hr IVPB Q8H-IV [place]; Protocol Last Admin: 06/07/19 09:40 Dose: 200 mls/hr Lactated Ringer's (Lactated Ringers Solution) 1,000 mls @ 150 mls/hr IV ASDIR [place] Last Admin: 06/07/19 09:38 Dose: 150 mls/hr Metronidazole (Flagyl 500mg Premixed Ivpb -) 500 mg in 100 mls @ 100 mls/hr IVPB Q8H-IV [place] Last Admin: 06/07/19 09:41 Dose: 100 mls/hr Fluconazole (Diflucan 200 Mg/D5w Premixed Ivpb -) 100 mls @ 100 mls/hr IVPB DAILY [facility] Last Admin: 06/07/19 09:40 Dose: 100 mls/hr Pantoprazole Sodium 160 mg/ (Sodium Chloride) 290 mls @ 14.5 mls/hr IVPB Q20H [place] Last Admin: 06/06/19 16:00 Dose: 14.5 mls/hr Morphine Sulfate (Morphine Sulfate) 2 mg IVPUSH Q4H PRN PRN Reason: PAIN LEVEL 7 - 10 Last Admin: 06/07/19 04:12 Dose: 2 mg Mupirocin (Bactroban Ointment (For Decolonization) -) 1 applic NS BID [facility] Stop: 06/11/19 21:59 Last Admin: 06/07/19 10:15 Dose: 1 applic Nicotine (Nicoderm Patch -) 14 mg TD DAILY [facility] Last Admin: 06/07/19 09:42 Dose: 14 mg Prochlorperazine Edisylate (Compazine Injection -) 10 mg IVPB Q4H PRN PRN Reason: NAUSEA AND/OR VOMITING Vital Signs Period Temp Pulse Resp BP Sys/Ibrahim Pulse Ox Last 24 Hr 99 F-101 F 104-119 20-26 136-176/80-98 95-95 Intake & Output 06/04/19 06/05/19 06/06/19 06/07/19 23:59 23:59 23:59 23:59 Intake Total 400 2883.5 2020 Output Total 700 350 Balance 400 2183.5 1670 Weight 61.825 kg 62.8 kg 62.8 kg GEN: 58 y/o man whom appears much older than his stated age, ill HEENT: PERRL, an-icteric, Dry MM PULM: CTAB CV: nml S1 S2, RR, unable to appreciate any G/M/R ABD: hypoactive BS, diffuse tenderness to palpation all quadrants, +rebound EXT: WWP X4, + Pulses X4, (-) edema SKIN: Dry, ashy, poor turgor CBC, BMP 06/07/19 06:00 06/07/19 06:00 Microbiology 06/05/19 16:00 Blood - Peripheral Venous Blood Culture - Preliminary NO GROWTH OBTAINED AFTER 24 HOURS, INCUBATION TO CONTINUE FOR 4 DAYS. 06/05/19 16:00 Blood - Peripheral Venous Blood Culture - Preliminary NO GROWTH OBTAINED AFTER 24 HOURS, INCUBATION TO CONTINUE FOR 4 DAYS. 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 Repeat CTAP shows moderate thickening of gastric body and antrum, suspicious for infectious vs. infiltrative process, no gross gastric wall air is identified. ASSESSMENT/PLAN: (1) Acute abdomen ASSESS: Acute abdomen pt refusing X-Lap --> Patient is aware of probable if he does not agree to surgical intervention R/O Micro Perforation R/O Infectious process Nicotene dependence PLAN: Supp O2 prn for an SpO2 > 92% IVFs PPI ABX per ID Mechanical VTE prophylaxis Pain control NPO D/c --> Floor [facility] ICU PULM/CCM [id number]
[2019-06-07] MEDS ORDERED: PT OWN MED DRAWER 7, Y5N ONE ×3 (08:31→13:20)
--- NOTE | 2019-06-07 08:32 | PN ---
Progress Note (short form) - Note Progress Note: refused surgery again yesterday pain is the same alert Vital Signs Period Temp Pulse Resp BP Sys/Ibrahim Pulse Ox Last 24 Hr 98.5 F-101 F 104-119 18-26 136-176/80-98 92-95 cor-rrr lungs clear abd firm slight distention hypoactive BS, diffuse tenderness to palpation all quadrants, +rebound ext no edema CBC, BMP 06/07/19 06:00 06/07/19 06:00 Microbiology 06/05/19 16:00 Blood - Peripheral Venous Blood Culture - Preliminary NO GROWTH OBTAINED AFTER 24 HOURS, INCUBATION TO CONTINUE FOR 4 DAYS. 06/05/19 16:00 Blood - Peripheral Venous Blood Culture - Preliminary NO GROWTH OBTAINED AFTER 24 HOURS, INCUBATION TO CONTINUE FOR 4 DAYS. 06/05/19 07:45 Urine - Urine Clean Catch Urine Culture - Final NO GROWTH OBTAINED ct scan results noted a/p concern for surgical abdomen- ?ulcer perforation, worsening intrabdominal process refused surgery last night and again this am aware that he could continue fluids/continue zosyn/flagyl, diflucan management per surgery and GI blood cultures negative hiv testing (patient agrees)-pending d/w events and promotions assistant
[2019-06-07] MEDS: FLUCONAZOLE 200 MG/D5W 100 ML IVPB SCH (09:40)
[2019-06-07] MEDS: NICOTINE 14 MG/24 HOURS TOPICAL PATCH TD SCH (09:42)
[2019-06-07] MEDS: MUPIROCIN 2% TOPICAL OINTMENT FOR DECOLONIZATION NS SCH ×2 (10:15→22:03)
[2019-06-07 11:23] LABS: ANISOCYTOSIS 1+; PLATELET ESTIMATE NORMAL
--- NOTE | 2019-06-07 11:44 | PN ---
Teaching Attending Note Name of Resident: Chapito Antonio ATTENDING PHYSICIAN STATEMENT I saw and evaluated the patient. I reviewed the resident's note and discussed the case with the resident. I agree with the resident's findings and plan as documented. SUBJECTIVE: cont to have fever . has no BM, abd pain 6/10 . no SOB . OBJECTIVE: NAD. Dry MM. cooperative Cv: RRR, no MRG Lungs: CTAB Abd: Rigidity. Tenderness in all quadrants. no rebound. present but hypoactive BS. Ext: No edema or erythema. thick silvery plaque on his L knee. eczematous lesions on dorsal feet ASSESSMENT AND PLAN: 58 y/o man with h/o nicotine dependence who presented with worsening abdominal pain. he was found to have peritonitis 1- Acute peritonitis: with possible Peptic ulcer perforation. other possibilities like ischemia , ETC are not completely excluded 2- severe sepsis 3- Lactic acidosis 4- Enlarged prostate 5- L renal cyst Plan : - cont to refuse sx on today's discussion - follow blood cx and CBC - cont diflucan, flagyl and zosyn - NPO - cont IVf - cont morphine - SCds Guarded prognosis Critical Care Total Critical Care Time (in minutes): 35 Critical Care Statement: The care of this patient involved high complexity decision making to prevent further life threatening deterioration of the patient 's condition and/or to evaluate & treat vital organ system(s) failure or risk of failure.
[2019-06-07 12:36] LABS: MACROCYTOSIS 1+
[2019-06-07] MEDS: PANTOPRAZOLE SODIUM 160 MG in SODIUM CHLORIDE 290 ML IVPB SCH (13:20)
--- NOTE | 2019-06-07 14:40 | PN ---
Physical Exam: SUBJECTIVE: Patient seen and examined. Pt. endorses less pain, able to move around more. Pt. denies passing gas or stool. Pt endorses chronic difficulty passing urine especially while laying flat. OBJECTIVE: Vital Signs Period Temp Pulse Resp BP Sys/Ibrahim Pulse Ox Last 24 Hr 99 F-101 F 104-119 20-26 136-174/80-99 95-95 GENERAL: Awake, alert, and fully oriented, in severe distress 2/2 pain. HEAD: Normal with no signs of trauma. EYES: Pupils equal, round and reactive to light, extraocular movements intact, sclera anicteric, conjunctiva clear. EARS, NOSE, THROAT: Ears normal, nares patent, oropharynx clear without exudates. Moist mucous membranes. NECK: Normal range of motion, JVD, or masses. LUNGS: Breath sounds equal, clear to auscultation bilaterally. No wheezes, and no crackles. No accessory muscle use. HEART: Regular rate and rhythm, normal S1 and S2 without murmur, rub or gallop. ABDOMEN: BS+, dull to percussion, Exquisite tenderness to light touch and palpation. RECTAL: Good sphincter tone, no external or internal hemorrhoids, enlarged prostate but smooth, brown stool on glove MUSCULOSKELETAL: Normal range of motion at all joints. No CVA tenderness. UPPER EXTREMITIES: 2+ pulses, warm, well-perfused. No cyanosis. No clubbing. No peripheral edema. LOWER EXTREMITIES: 2+ dorsal pedal pulses, warm, well-perfused. No calf tenderness. No peripheral edema. NEUROLOGICAL: Cranial nerves II-XII grossly intact. Normal speech. Gait not assessed PSYCHIATRIC: Cooperative. Good eye contact. Appropriate mood and affect. SKIN: Warm, diaphoretic, normal turgor Laboratory Results - last 24 hr 06/05/19 06/06/19 06/06/19 16:00 17:50 22:55 WBC 32.5 H* RBC 4.48 Hgb 13.4 Hct 41.3 MCV 92.2 MCH 29.9 MCHC 32.5 RDW 13.9 Plt Count 251 MPV 9.3 Absolute Neuts (auto) 29.8 H Neutrophils % 91.6 H Neutrophils % (Manual) 90.1 H D Band Neutrophils % 0.0 Lymphocytes % 4.4 L Lymphocytes % (Manual) 4.9 L Monocytes % 3.8 Monocytes % (Manual) 5 Eosinophils % 0.0 Eosinophils % (Manual) 0.0 Basophils % 0.2 D Basophils % (Manual) 0.0 Myelocytes % (Man) 0 Promyelocytes % (Man) 0 Blast Cells % (Manual) 0 Nucleated RBC % 0 Metamyelocytes 0 D Hypochromia Platelet Estimate Normal Platelet Comment Polychromasia Poikilocytosis Anisocytosis Microcytosis Macrocytosis PT with INR INR Sodium Potassium Chloride Carbon Dioxide Anion Gap BUN Creatinine Est GFR (CKD-EPI)AfAm Est GFR (CKD-EPI)NonAf Random Glucose Lactic Acid 2.6 H* Calcium Phosphorus Magnesium Total Bilirubin AST ALT Alkaline Phosphatase Total Protein Albumin HIV 1&2 Ag/Ab, 4th Gen Non reactive 06/06/19 06/07/19 06/07/19 22:55 05:00 06:00 WBC 30.5 H* RBC 4.22 Hgb 12.8 Hct 38.4 MCV 91.0 MCH 30.4 MCHC 33.4 RDW 13.9 Plt Count 251 MPV 9.8 Absolute Neuts (auto) 27.7 H Neutrophils % 90.8 H Neutrophils % (Manual) 86.9 H Band Neutrophils % 2.8 Lymphocytes % 5.3 L D Lymphocytes % (Manual) 6.6 L D Monocytes % 3.8 Monocytes % (Manual) 4 Eosinophils % 0.0 Eosinophils % (Manual) 0.0 Basophils % 0.1 Basophils % (Manual) 0.0 Myelocytes % (Man) 0 Promyelocytes % (Man) 0 Blast Cells % (Manual) 0 Nucleated RBC % 0 Metamyelocytes 0 Hypochromia 1+ Platelet Estimate Normal Platelet Comment No clumping noted Polychromasia 0 Poikilocytosis 0 Anisocytosis 1+ Microcytosis 0 Macrocytosis 1+ PT with INR INR Sodium Potassium Chloride Carbon Dioxide Anion Gap BUN Creatinine Est GFR (CKD-EPI)AfAm Est GFR (CKD-EPI)NonAf Random Glucose Lactic Acid 1.8 1.1 Calcium Phosphorus Magnesium Total Bilirubin AST ALT Alkaline Phosphatase Total Protein Albumin HIV 1&2 Ag/Ab, 4th Gen 06/07/19 06/07/19 06/07/19 06:00 06:00 12:03 WBC RBC Hgb Hct MCV MCH MCHC RDW Plt Count MPV Absolute Neuts (auto) Neutrophils % Neutrophils % (Manual) Band Neutrophils % Lymphocytes % Lymphocytes % (Manual) Monocytes % Monocytes % (Manual) Eosinophils % Eosinophils % (Manual) Basophils % Basophils % (Manual) Myelocytes % (Man) Promyelocytes % (Man) Blast Cells % (Manual) Nucleated RBC % Metamyelocytes Hypochromia Platelet Estimate Platelet Comment Polychromasia Poikilocytosis Anisocytosis Microcytosis Macrocytosis PT with INR 14.20 H INR 1.20 H Sodium 140 Potassium 3.8 Chloride 106 Carbon Dioxide 26 Anion Gap 8 BUN 16.2 Creatinine 0.9 Est GFR (CKD-EPI)AfAm 109.50 Est GFR (CKD-EPI)NonAf 94.48 Random Glucose 107 H Lactic Acid 1.8 Calcium 8.2 L Phosphorus 2.4 L Magnesium 2.1 Total Bilirubin 0.5 AST 11 L ALT 11 L Alkaline Phosphatase 66 Total Protein 5.5 L Albumin 2.3 L HIV 1&2 Ag/Ab, 4th Gen Active Medications Current Medications Chlorhexidine Gluconate (Hibiclens For Decolonization -) 1 applic TP HS [place] Last Admin: 06/06/19 21:11 Dose: 1 applic Piperacillin Sod/Tazobactam (Sod 4.5 gm/ Dextrose) 100 mls @ 200 mls/hr IVPB Q8H-IV [place]; Protocol Last Admin: 06/07/19 09:40 Dose: 200 mls/hr Lactated Ringer's (Lactated Ringers Solution) 1,000 mls @ 150 mls/hr IV ASDIR [place] Last Admin: 06/07/19 14:30 Dose: Not Given Metronidazole (Flagyl 500mg Premixed Ivpb -) 500 mg in 100 mls @ 100 mls/hr IVPB Q8H-IV [place] Last Admin: 06/07/19 09:41 Dose: 100 mls/hr Fluconazole (Diflucan 200 Mg/D5w Premixed Ivpb -) 100 mls @ 100 mls/hr IVPB DAILY [place] Last Admin: 06/07/19 09:40 Dose: 100 mls/hr Pantoprazole Sodium 160 mg/ (Sodium Chloride) 290 mls @ 14.5 mls/hr IVPB Q20H [place] Last Admin: 06/07/19 13:20 Dose: 14.5 mls/hr Morphine Sulfate (Morphine Sulfate) 2 mg IVPUSH Q4H PRN PRN Reason: PAIN LEVEL 7 - 10 Last Admin: 06/07/19 13:08 Dose: 2 mg Mupirocin (Bactroban Ointment (For Decolonization) -) 1 applic NS BID [facility] Stop: 06/11/19 21:59 Last Admin: 06/07/19 10:15 Dose: 1 applic Nicotine (Nicoderm Patch -) 14 mg TD DAILY [facility] Last Admin: 06/07/19 09:42 Dose: 14 mg Prochlorperazine Edisylate (Compazine Injection -) 10 mg IVPB Q4H PRN PRN Reason: NAUSEA AND/OR VOMITING ASSESSMENT/PLAN: Pt. is a 58 y.o. M w/o PMHx. presents with abdominal pain for the last few weeks that has acutely worsened within the last week and most notable last night. #Abdominal Pain w/ Leukocytosis Pt. 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 Sheffield) appreciated Surgery consult (Dr. Hines) appreciated ID consut (Dr. Felton) appreciated Lipase: 216 Lactate: peaked at 4.2, now 1.8 BCx. NTD Protonix 40mg IV daily Morphine for pain control f/u FOBT f/u stool cultures Rpt. CT scan w/ contrast did no show air or extravasation in into the peritoneum f/u bladder scan #Nicotine Dependence smoked 1/2 PPD will offer nicotine patch #FEN LR @ 125 monitor and replete PRN NPO ATTENDING PHYSICIAN STATEMENT I saw and evaluated the patient. I reviewed the resident's note and discussed the case with the resident. I agree with the resident's findings and plan as documented. SUBJECTIVE: OBJECTIVE: ASSESSMENT AND PLAN:
--- NOTE | 2019-06-07 16:08 | PN.GI ---
GI Progress Note Subjective: GI Note ( covering Dr Adam): Pain persists that is requiring morphine. Low grade fevers persist. No BM but no vomiting. Lactic acidosis is dropping - Objective Vital Signs: Vital Signs Temperature 100.1 F H 06/07/19 15:00 Pulse Rate 106 H 06/07/19 15:00 Respiratory Rate 20 06/07/19 15:00 Blood Pressure 153/90 06/07/19 15:00 O2 Sat by Pulse Oximetry (%) 95 06/07/19 09:00 Laboratory Tests 06/05/19 06/06/19 06/06/19 05:35 05:50 10:50 WBC 20.6 H 31.1 H* Hgb Band Neutrophils % 29.6 Lactic Acid 4.2 H* Total Bilirubin AST ALT Alkaline Phosphatase 06/06/19 06/07/19 06/07/19 22:55 06:00 06:00 WBC 32.5 H* 30.5 H* Hgb 12.8 Band Neutrophils % 2.8 Lactic Acid Total Bilirubin 0.5 AST 11 L ALT 11 L Alkaline Phosphatase 66 06/07/19 12:03 WBC Hgb Band Neutrophils % Lactic Acid 1.8 Total Bilirubin AST ALT Alkaline Phosphatase Constitutional: Calm ...Auscultate: Yes: Hypoactive Bowel Sounds ...Palpate: Yes: Tenderness, Rebound (difuse nonlocalizing) Labs: CBC, BMP 06/07/19 06:00 06/07/19 06:00 INR, PTT INR 1.20 (0.83-1.09) H 06/07/19 06:00 Assessment/Plan Assessment: - Peritonitis of undetermined etiology but mandating an exploratory laparotomy. Crispin again declines surgery. Suspect an embolic or thrombotic ischemic bowel event Plan: -- Continue antibiotics -- Keep NPO Problem List - Problems (1) Peritonitis Code(s): K65.9 - PERITONITIS, UNSPECIFIED (2) Abdominal pain Code(s): R10.9 - UNSPECIFIED ABDOMINAL PAIN Qualifiers: Abdominal location: generalized Qualified Code(s): R10.84 - Generalized abdominal pain (3) Acute abdomen Code(s): R10.0 - ACUTE ABDOMEN
[2019-06-07] MEDS ORDERED: ACETAMINOPHEN 1000 MG/100 ML VIAL (NON FORMULARY) IVPB PRN (20:52)
[2019-06-07] MEDS: CHLORHEXIDINE GLUCONATE 4% CLEANSER FOR DECOLONIZATION TP SCH (22:03)
[2019-06-08] MEDS ORDERED: DEXTROSE 5%-WATER 100 ML IVPB ONE ×4 (00:15→21:31)
[2019-06-08] MEDS ORDERED: PIPERACILLIN/TAZOBACTAM 4.5 GM VIAL IVPB ONE ×4 (00:15→21:31)
[2019-06-08] MEDS: PIPERACILLIN/TAZOB 4.5 GM 4.5 GM in DEXTROSE 5%-WATER 100 ML IVPB SCH ×3 (01:15→17:18)
[2019-06-08 06:10] LABS: BASO % 0.4 % (0-2.0); EOS % 0.2 % (0-4.5); HEMATOCRIT 35.6 % (35.4-49); HEMOGLOBIN 11.9 GM/dL (11.7-16.9); LYMPH % 6.1 % (8-40); MCH 30.5 pg (25.7-33.7); MCHC 33.4 g/dl (32.0-35.9); MEAN CELL VOLUME 91.2 fl (80-96); MEAN PLT VOLUME 9.4 fl (7.5-11.1); MONO % 5.9 % (3.8-10.2); NEUT % 87.4 % (42.8-82.8); PLATELET COUNT 262 K/MM3 (134-434); WHITE BLOOD COUNT 27.4 K/mm3 (4.0-10.0)
[2019-06-08 06:32] LABS: BLOOD UREA NITROGEN 14.4 mg/dL (7-18); CALCIUM 8.1 mg/dL (8.5-10.1); CREATININE 0.9 mg/dL (0.55-1.3); MAGNESIUM 2.1 mg/dL (1.8-2.4); POTASSIUM 3.6 mmol/L (3.5-5.1)
--- NOTE | 2019-06-08 08:31 | PN ---
Progress Note (short form) - Note Progress Note: fevers trending down walked to bathroom and had a BM -report is loose and nonbloody now with left sided abdominal pain Vital Signs Period Temp Pulse Resp BP Sys/Ibrahim Pulse Ox Last 24 Hr 98.7 F-100.6 F 99-115 16-27 153-174/70-106 95-95 cor-rrr lungs clear abd firm, hypoactive BS, right side not so tender, left side of abdomen is tender to palpation with rebound ext no edema CBC, BMP 06/08/19 05:30 06/08/19 05:30 Microbiology 06/05/19 16:00 Blood - Peripheral Venous Blood Culture - Preliminary NO GROWTH OBTAINED AFTER 48 HOURS, INCUBATION TO CONTINUE FOR 3 DAYS. 06/05/19 16:00 Blood - Peripheral Venous Blood Culture - Preliminary NO GROWTH OBTAINED AFTER 48 HOURS, INCUBATION TO CONTINUE FOR 3 DAYS. 06/05/19 07:45 Urine - Urine Clean Catch Urine Culture - Final NO GROWTH OBTAINED HIV negative ct scan results noted a/p concern for surgical abdomen- ?ulcer perforation, worsening intrabdominal process continue fluids/continue zosyn/flagyl, diflucan management per surgery and GI blood cultures negative consider repeat abd/pelvic ct in am
--- NOTE | 2019-06-08 08:32 | PN ---
Progress Note (short form) - Note Progress Note: PULM/CCM Patient seen and examined in the ICU. Improving residual L sided abd discomfort , hemodynamics remain stable. Patient continues to refuse surgical intervention. Active Medications Acetaminophen (Ofirmev Injection -) 1,000 mg IVPB Q6H PRN PRN Reason: FEVER Chlorhexidine Gluconate (Hibiclens For Decolonization -) 1 applic TP HS [place] Last Admin: 06/07/19 22:03 Dose: 1 applic Piperacillin Sod/Tazobactam (Sod 4.5 gm/ Dextrose) 100 mls @ 200 mls/hr IVPB Q8H-IV [place]; Protocol Last Admin: 06/08/19 09:20 Dose: 200 mls/hr Lactated Ringer's (Lactated Ringers Solution) 1,000 mls @ 150 mls/hr IV ASDIR [place] Last Admin: 06/08/19 09:18 Dose: 150 mls/hr Metronidazole (Flagyl 500mg Premixed Ivpb -) 500 mg in 100 mls @ 100 mls/hr IVPB Q8H-IV [place] Last Admin: 06/08/19 09:24 Dose: 100 mls/hr Fluconazole (Diflucan 200 Mg/D5w Premixed Ivpb -) 100 mls @ 100 mls/hr IVPB DAILY [place] Last Admin: 06/08/19 09:24 Dose: 100 mls/hr Pantoprazole Sodium 160 mg/ (Sodium Chloride) 290 mls @ 14.5 mls/hr IVPB Q20H [place] Last Admin: 06/08/19 09:17 Dose: 14.5 mls/hr Labetalol HCl (Normodyne Injection -) 10 mg IVPUSH Q6H PRN PRN Reason: hypertenion Morphine Sulfate (Morphine Sulfate) 2 mg IVPUSH Q4H PRN PRN Reason: PAIN LEVEL 7 - 10 Last Admin: 06/08/19 08:40 Dose: 2 mg Mupirocin (Bactroban Ointment (For Decolonization) -) 1 applic NS BID [facility] Stop: 06/11/19 21:59 Last Admin: 06/08/19 09:24 Dose: 1 applic Nicotine (Nicoderm Patch -) 14 mg TD DAILY [place] Last Admin: 06/08/19 09:25 Dose: 14 mg Prochlorperazine Edisylate (Compazine Injection -) 10 mg IVPB Q4H PRN PRN Reason: NAUSEA AND/OR VOMITING Vital Signs Period Temp Pulse Resp BP Sys/Ibrahim Pulse Ox Last 24 Hr 98.7 F-100.6 F 99-115 16-28 153-181/70-106 95-95 Intake & Output 06/05/19 06/06/19 06/07/19 06/08/19 23:59 23:59 23:59 23:59 Intake Total 400 2883.5 4294 1868 Output Total 700 1430 450 Balance 400 2183.5 2864 1418 Weight 61.825 kg 62.8 kg 62.8 kg 64.41 kg Gen: odd flat affect, w/ drawn bu A+O x3, NAD HEENT: PERRL, an-icteric, Dry MM PULM: CTAB CV: nml S1 S2, RR, unable to appreciate any G/M/R ABD: hypoactive BS, diffuse L sided Abd tenderness to palpation , +rebound EXT: WWP X4, + Pulses X4, (-) edema SKIN: Dry, ashy, poor turgor CBC, BMP 06/08/19 05:30 06/08/19 05:30 Microbiology 06/05/19 16:00 Blood - Peripheral Venous Blood Culture - Preliminary NO GROWTH OBTAINED AFTER 48 HOURS, INCUBATION TO CONTINUE FOR 3 DAYS. 06/05/19 16:00 Blood - Peripheral Venous Blood Culture - Preliminary NO GROWTH OBTAINED AFTER 48 HOURS, INCUBATION TO CONTINUE FOR 3 DAYS. 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 Repeat CTAP shows moderate thickening of gastric body and antrum, suspicious for infectious vs. infiltrative process, no gross gastric wall air is identified. ASSESSMENT/PLAN: (1) Acute abdomen ASSESS: Acute abdomen pt refusing X-Lap --> Patient is aware of probable if he does not agree to surgical intervention R/O Micro Perforation R/O Infectious process Nicotene dependence PLAN: Supp O2 prn for an SpO2 > 92% IVFs PPI ABX per ID Mechanical VTE prophylaxis Pain control NPO D/c --> Floor Ambar Feliciano, [facility] ICU PULM/CCM 3141
[2019-06-08] MEDS: MORPHINE SULFATE 2 MG/ML VIAL IVPUSH PRN ×3 (08:40→19:12)
--- NOTE | 2019-06-08 09:11 | PN ---
Progress Note (short form) - Note Progress Note: Subjective: Has Abd pain but it improved, now it is more pronounced on L side. had BM this am , was brown and liquidy. No blood. No N/V. no fever or chills. Objective: Vital Signs: Last Vital Signs Temp Pulse Resp BP Pulse Ox 99.4 F 112 H 28 H 181/100 H 95 06/08/19 08:00 06/08/19 08:00 06/08/19 08:00 06/08/19 08:00 06/08/19 08:00 Laboratory Results - last 24 hr 06/07/19 06/07/19 06/08/19 06:00 12:03 05:30 WBC 27.4 H RBC 3.90 L Hgb 11.9 Hct 35.6 MCV 91.2 MCH 30.5 MCHC 33.4 RDW 14.0 Plt Count 262 MPV 9.4 Absolute Neuts (auto) 24.0 H Neutrophils % 87.4 H Neutrophils % (Manual) 86.9 H Band Neutrophils % 2.8 Lymphocytes % 6.1 L Lymphocytes % (Manual) 6.6 L D Monocytes % 5.9 Monocytes % (Manual) 4 Eosinophils % 0.2 D Eosinophils % (Manual) 0.0 Basophils % 0.4 D Basophils % (Manual) 0.0 Myelocytes % (Man) 0 Promyelocytes % (Man) 0 Blast Cells % (Manual) 0 Nucleated RBC % 0 Metamyelocytes 0 Hypochromia 1+ Platelet Estimate Normal Platelet Comment No clumping noted Polychromasia 0 Poikilocytosis 0 Anisocytosis 1+ Microcytosis 0 Macrocytosis 1+ Sodium Potassium Chloride Carbon Dioxide Anion Gap BUN Creatinine Est GFR (CKD-EPI)AfAm Est GFR (CKD-EPI)NonAf Random Glucose Lactic Acid 1.8 Calcium Phosphorus Magnesium 06/08/19 05:30 WBC RBC Hgb Hct MCV MCH MCHC RDW Plt Count MPV Absolute Neuts (auto) Neutrophils % Neutrophils % (Manual) Band Neutrophils % Lymphocytes % Lymphocytes % (Manual) Monocytes % Monocytes % (Manual) Eosinophils % Eosinophils % (Manual) Basophils % Basophils % (Manual) Myelocytes % (Man) Promyelocytes % (Man) Blast Cells % (Manual) Nucleated RBC % Metamyelocytes Hypochromia Platelet Estimate Platelet Comment Polychromasia Poikilocytosis Anisocytosis Microcytosis Macrocytosis Sodium 139 Potassium 3.6 Chloride 104 Carbon Dioxide 27 Anion Gap 8 BUN 14.4 Creatinine 0.9 Est GFR (CKD-EPI)AfAm 109.50 Est GFR (CKD-EPI)NonAf 94.48 Random Glucose 99 Lactic Acid Calcium 8.1 L Phosphorus 3.0 Magnesium 2.1 Physical Exam: NAD.MM, cooperative Cv: RRR, no MRG Lungs: CTAB Abd: softer today. Tenderness in suprapubic aream LLQ, and LUQ and epigastric area. no rebound. Nl BS Ext: No edema or erythema. thick silvery plaque on his L knee. eczematous lesions on dorsal feet ASSESSMENT AND PLAN: 58 y/o man with h/o nicotine dependence who presented with worsening abdominal pain. he was found to have peritonitis 1- Acute peritonitis: with possible Peptic ulcer perforation. other possibilities like ischemia , ETC are not completely excluded 2- severe sepsis 3- Lactic acidosis 4- Enlarged prostate 5- L renal cyst 6- Uncontrolled HTN Plan : - HAd BM , abd exam has improved today. requesting pain meds less. leukocytosis improved - repeat CT tomorrow with po and IV contrast to r/o collection - follow blood cx and CBC - cont diflucan, flagyl and zosyn - NPO - cont IVf - cont morphine - add IV labetalol as needed for BP > 165/110 - SCds Visit type - Emergency Visit Emergency Visit: Yes ED Registration Date: 06/05/19 Care time: The patient presented to the Emergency Department on the above date and was hospitalized for further evaluation of their emergent condition. - New Patient This patient is new to me today: No - Critical Care Critical Care patient: No Total Critical Care Time (in minutes): 25
[2019-06-08] MEDS: PANTOPRAZOLE SODIUM 160 MG in SODIUM CHLORIDE 290 ML IVPB SCH (09:17)
[2019-06-08] MEDS: LACTATED RINGERS SOLUTION 1,000 ML IV SCH ×3 (09:18→17:41)
[2019-06-08] MEDS ORDERED: PT OWN MED DRAWER 7, Y5N ONE (09:22)
[2019-06-08] MEDS: FLUCONAZOLE 200 MG/D5W 100 ML IVPB SCH (09:24)
[2019-06-08] MEDS: MUPIROCIN 2% TOPICAL OINTMENT FOR DECOLONIZATION NS SCH ×2 (09:24→21:41)
[2019-06-08] MEDS: NICOTINE 14 MG/24 HOURS TOPICAL PATCH TD SCH (09:25)
[2019-06-08] MEDS ORDERED: amLODIPine BESYLATE 2.5 MG TABLET (FP) PO SCH (10:00)
[2019-06-08 11:00] LABS: PLATELET ESTIMATE ADEQUATE
[2019-06-08] MEDS: LABETALOL HCL 5 MG/1 ML (100MG/20 ML VIAL) IVPUSH PRN ×2 (11:06→18:35)
--- NOTE | 2019-06-08 11:47 | PN.GI ---
GI Progress Note Subjective: GI Note ( covering Dr Adam): Pain persists but he tells me it is shifting to the left lateral abdomen. He had a normal brown BM this AM which he feels brought some relief. Fevers have defervesced. No vomiting - Objective Vital Signs: Vital Signs Temperature 99.2 F 06/08/19 10:00 Pulse Rate 102 H 06/08/19 10:00 Respiratory Rate 28 H 06/08/19 10:00 Blood Pressure 164/92 06/08/19 10:00 O2 Sat by Pulse Oximetry (%) 95 06/08/19 08:00 Laboratory Tests 06/07/19 06/08/19 06/08/19 06:00 05:30 05:30 WBC 30.5 H* 27.4 H Hgb 11.9 BUN 14.4 Creatinine 0.9 Constitutional: Calm ...Auscultate: Yes: Hypoactive Bowel Sounds ...Palpate: Yes: Other (left lateral and epigastric tenderness) Labs: CBC, BMP 06/08/19 05:30 06/08/19 05:30 INR, PTT INR 1.20 (0.83-1.09) H 06/07/19 06:00 Assessment/Plan Assessment: - Peritonitis of undetermined etiology. Crispin again declines surgery. Plan: -- Will consider repeat CT tomorrow or sooner if fever recurs -- Continue antibiotics -- Keep NPO Problem List - Problems (1) Peritonitis Code(s): K65.9 - PERITONITIS, UNSPECIFIED (2) Abdominal pain Code(s): R10.9 - UNSPECIFIED ABDOMINAL PAIN Qualifiers: Abdominal location: generalized Qualified Code(s): R10.84 - Generalized abdominal pain (3) Acute abdomen Code(s): R10.0 - ACUTE ABDOMEN
[2019-06-08 12:41] VITALS: BMI 21.6
[2019-06-08] MEDS: CHLORHEXIDINE GLUCONATE 4% CLEANSER FOR DECOLONIZATION TP SCH (21:41)
[2019-06-09] MEDS ORDERED: PIPERACILLIN/TAZOBACTAM 4.5 GM VIAL IVPB ONE ×3 (00:14→16:34)
[2019-06-09] MEDS ORDERED: DEXTROSE 5%-WATER 100 ML IVPB ONE ×3 (00:14→16:35)
[2019-06-09] MEDS: PIPERACILLIN/TAZOB 4.5 GM 4.5 GM in DEXTROSE 5%-WATER 100 ML IVPB SCH ×3 (02:27→17:23)
[2019-06-09] MEDS: PANTOPRAZOLE SODIUM 160 MG in SODIUM CHLORIDE 290 ML IVPB SCH (06:06)
[2019-06-09 06:42] LABS: BASO % 0.3 % (0-2.0); EOS % 0.7 % (0-4.5); HEMATOCRIT 38.6 % (35.4-49); LYMPH % 10.1 % (8-40); MCH 30.6 pg (25.7-33.7); MCHC 33.7 g/dl (32.0-35.9); MEAN CELL VOLUME 90.9 fl (80-96); MEAN PLT VOLUME 9.1 fl (7.5-11.1); MONO % 9.2 % (3.8-10.2); NEUT % 79.7 % (42.8-82.8); PLATELET COUNT 299 K/MM3 (134-434); RBC 4.24 M/mm3 (4.00-5.60); WHITE BLOOD COUNT 21.6 K/mm3 (4.0-10.0)
[2019-06-09 07:08] LABS: BLOOD UREA NITROGEN 14.2 mg/dL (7-18); CALCIUM 8.2 mg/dL (8.5-10.1); CREATININE 0.9 mg/dL (0.55-1.3); PHOSPHOROUS 2.8 mg/dL (2.5-4.9); POTASSIUM 3.5 mmol/L (3.5-5.1)
[2019-06-09] MEDS ORDERED: PT OWN MED DRAWER 7, Y5N ONE ×2 (08:00→09:20)
[2019-06-09] MEDS: FLUCONAZOLE 200 MG/D5W 100 ML IVPB SCH (09:07)
[2019-06-09] MEDS: MORPHINE SULFATE 2 MG/ML VIAL IVPUSH PRN ×2 (09:23→13:00)
[2019-06-09] MEDS: NICOTINE 14 MG/24 HOURS TOPICAL PATCH TD SCH (09:23)
[2019-06-09] MEDS: MUPIROCIN 2% TOPICAL OINTMENT FOR DECOLONIZATION NS SCH ×2 (09:32→21:29)
[2019-06-09] MEDS: PANTOPRAZOLE SODIUM 40 MG VIAL IVPUSH SCH ×2 (09:57→21:30)
--- NOTE | 2019-06-09 10:11 | PN ---
Progress Note (short form) - Note Progress Note: Had 2 BMs this am-yellow nonbloody ambulating to the bathroom pain is primarily left sided now less then admission Vital Signs Period Temp Pulse Resp BP Sys/Ibrahim Pulse Ox Last 24 Hr 99.0 F-99.5 F 85-101 18-24 153-181/94-109 95-96 cor-rrr lungs clear abd distended, left side tender to palpation, ?distended bladder ext no edema CBC, BMP 06/09/19 05:45 06/09/19 05:45 Microbiology 06/05/19 16:00 Blood - Peripheral Venous Blood Culture - Preliminary NO GROWTH OBTAINED AFTER 72 HOURS, INCUBATION TO CONTINUE FOR 2 DAYS. 06/05/19 16:00 Blood - Peripheral Venous Blood Culture - Preliminary NO GROWTH OBTAINED AFTER 72 HOURS, INCUBATION TO CONTINUE FOR 2 DAYS. 06/05/19 07:45 Urine - Urine Clean Catch Urine Culture - Final NO GROWTH OBTAINED a/p peritonitis fevers resolving for repeat ct scan today abd/pelvis bladder scan continue zosyn/flagyl/diflucan Problem List - Problems (1) Abdominal pain Code(s): R10.9 - UNSPECIFIED ABDOMINAL PAIN Qualifiers: Abdominal location: generalized Qualified Code(s): R10.84 - Generalized abdominal pain (2) Peritonitis Code(s): K65.9 - PERITONITIS, UNSPECIFIED
[2019-06-09 10:27] LABS: ANISOCYTOSIS 0; MACROCYTOSIS 0; PLATELET ESTIMATE NORMAL
--- NOTE | 2019-06-09 11:38 | PN ---
Teaching Attending Note Name of Resident: Johnny Bryson ATTENDING PHYSICIAN STATEMENT I saw and evaluated the patient. I reviewed the resident's note and discussed the case with the resident. I agree with the resident's findings and plan as documented. SUBJECTIVE: Patient seen and examined in the ICU. Awake and alert. Reports pain seems controlled. Preping for repeat CT. Intake & Output 06/06/19 06/07/19 06/08/19 06/09/19 23:59 23:59 23:59 23:59 Intake Total 2883.5 4294 4342 2174 Output Total 700 1430 1050 Balance 2183.5 2864 3292 2174 Weight 138 lb 7.205 oz 138 lb 7.205 oz 142 lb 142 lb Last Vital Signs Temp Pulse Resp BP Pulse Ox 99.3 F 92 H 20 180/104 H 96 06/09/19 08:25 06/09/19 11:00 06/09/19 11:00 06/09/19 11:00 06/09/19 07:45 Active Medications Acetaminophen (Ofirmev Injection -) 1,000 mg IVPB Q6H PRN PRN Reason: FEVER Chlorhexidine Gluconate (Hibiclens For Decolonization -) 1 applic TP HS [place] Last Admin: 06/08/19 21:41 Dose: 1 applic Piperacillin Sod/Tazobactam (Sod 4.5 gm/ Dextrose) 100 mls @ 200 mls/hr IVPB Q8H-IV [place]; Protocol Last Admin: 06/09/19 09:07 Dose: 200 mls/hr Lactated Ringer's (Lactated Ringers Solution) 1,000 mls @ 150 mls/hr IV ASDIR [place] Last Admin: 06/08/19 17:41 Dose: 150 mls/hr Metronidazole (Flagyl 500mg Premixed Ivpb -) 500 mg in 100 mls @ 100 mls/hr IVPB Q8H-IV [place] Last Admin: 06/09/19 09:07 Dose: 100 mls/hr Fluconazole (Diflucan 200 Mg/D5w Premixed Ivpb -) 100 mls @ 100 mls/hr IVPB DAILY [place] Last Admin: 06/09/19 09:07 Dose: 100 mls/hr Labetalol HCl (Normodyne Injection -) 10 mg IVPUSH Q6H PRN PRN Reason: hypertenion Last Admin: 06/08/19 18:35 Dose: 10 mg Morphine Sulfate (Morphine Sulfate) 2 mg IVPUSH Q4H PRN PRN Reason: PAIN LEVEL 7 - 10 Last Admin: 06/09/19 09:23 Dose: 2 mg Mupirocin (Bactroban Ointment (For Decolonization) -) 1 applic NS BID [facility] Stop: 06/11/19 21:59 Last Admin: 06/09/19 09:32 Dose: 1 applic Nicotine (Nicoderm Patch -) 14 mg TD DAILY [facility] Last Admin: 06/09/19 09:23 Dose: 14 mg Pantoprazole Sodium (Protonix Iv) 40 mg IVPUSH BID [facility] Last Admin: 06/09/19 09:57 Dose: 40 mg Prochlorperazine Edisylate (Compazine Injection -) 10 mg IVPB Q4H PRN PRN Reason: NAUSEA AND/OR VOMITING Gen: Awake and alert, NAD HEENT: PERRL, an-icteric, Dry MM PULM: Clear CV: S1 S2, RR ABD: distended, hypoactive BS, (+) mild diffuse Abd tenderness to palpation EXT: WWP X4, + Pulses X4, (-) edema SKIN: Dry, ashy, poor turgor NEURO: awake and alert, non-focal Laboratory Results - last 24 hr 06/09/19 06/09/19 06/09/19 05:40 05:45 05:45 WBC 21.6 H RBC 4.24 Hgb 13.0 Hct 38.6 MCV 90.9 MCH 30.6 MCHC 33.7 RDW 14.0 Plt Count 299 MPV 9.1 Absolute Neuts (auto) 17.2 H Neutrophils % 79.7 Lymphocytes % 10.1 D Monocytes % 9.2 Eosinophils % 0.7 D Basophils % 0.3 Nucleated RBC % 0 Sodium 140 Potassium 3.5 Chloride 103 Carbon Dioxide 26 Anion Gap 11 BUN 14.2 Creatinine 0.9 Est GFR (CKD-EPI)AfAm 109.50 Est GFR (CKD-EPI)NonAf 94.48 Random Glucose 91 Lactic Acid 1.2 Calcium 8.2 L Phosphorus 2.8 Magnesium 2.0 ASSESSMENT/PLAN: (1) Acute abdomen ASSESS: Acute abdomen patient is refusing X-Lap --> Multiple providers have made the patient aware of the possibility of if he does not agree to surgical intervention R/O Micro Perforation R/O Infectious process Nicotene dependence PLAN: For repeat CT imaging today O2 as needed to maintain saturation IVFs PPI ABX per ID Mechanical VTE prophylaxis Pain control NPO Can monitor of the Floor Critical care time spent in reviewing chart, evaluating patient and formulating plan - 36 minutes.
--- NOTE | 2019-06-09 11:56 | PN ---
Physical Exam: SUBJECTIVE: Patient seen and examined. Pt AB pain reduced, moved to L abdomen/ flank, still distended. Had 1 loose BM this morning, no chest pain/SOB/bleeding. OBJECTIVE: Vital Signs Period Temp Pulse Resp BP Sys/Ibrahim Pulse Ox Last 24 Hr 99.0 F-99.5 F 85-101 18-24 153-181/94-109 95-96 GENERAL: The patient is awake, alert, and fully oriented, in no acute distress. HEAD: Normal with no signs of trauma. LUNGS: Breath sounds equal, clear to auscultation bilaterally, no wheezes, no crackles, no accessory muscle use. HEART: Regular rate and rhythm, S1, S2 without murmur, rub or gallop. ABDOMEN: Distended, normoactive bowel sounds, moderate tenderness LUQ/LLQ/L flank w guarding, no organomegaly, no masses. Laboratory Results - last 24 hr 06/09/19 06/09/19 06/09/19 05:40 05:45 05:45 WBC 21.6 H RBC 4.24 Hgb 13.0 Hct 38.6 MCV 90.9 MCH 30.6 MCHC 33.7 RDW 14.0 Plt Count 299 MPV 9.1 Absolute Neuts (auto) 17.2 H Neutrophils % 79.7 Lymphocytes % 10.1 D Monocytes % 9.2 Eosinophils % 0.7 D Basophils % 0.3 Nucleated RBC % 0 Sodium 140 Potassium 3.5 Chloride 103 Carbon Dioxide 26 Anion Gap 11 BUN 14.2 Creatinine 0.9 Est GFR (CKD-EPI)AfAm 109.50 Est GFR (CKD-EPI)NonAf 94.48 Random Glucose 91 Lactic Acid 1.2 Calcium 8.2 L Phosphorus 2.8 Magnesium 2.0 Active Medications Generic Name Dose Route Start Last Admin Trade Name Freq PRN Reason Stop Dose Admin Acetaminophen 1,000 mg 06/07/19 20:52 Ofirmev Injection - IVPB Q6H PRN FEVER Chlorhexidine Gluconate 1 applic 06/06/19 22:00 06/08/19 21:41 Hibiclens For Decolonization - TP 1 applic HS [place] Administration Piperacillin Sod/Tazobactam 100 mls @ 200 mls/hr 06/06/19 18:00 06/09/19 09: 07 Sod 4.5 gm/ Dextrose IVPB 200 mls/hr Q8H-IV [place] Administration Protocol Lactated Ringer's 1,000 mls @ 150 mls/hr 06/06/19 13:21 06/08/19 17:41 Lactated Ringers Solution IV 150 mls/hr ASDIR [place] Administration Metronidazole 500 mg in 100 mls @ 100 mls/hr 06/06/19 14:30 06/09/19 09:07 Flagyl 500mg Premixed Ivpb - IVPB 100 mls/hr Q8H-IV [place] Administration Fluconazole 100 mls @ 100 mls/hr 06/06/19 15:20 06/09/19 09:07 Diflucan 200 Mg/D5w Premixed Ivpb - IVPB 100 mls/hr DAILY [place] Administration Labetalol HCl 10 mg 06/08/19 08:58 06/08/19 18:35 Normodyne Injection - IVPUSH 10 mg Q6H PRN Administration hypertenion Morphine Sulfate 2 mg 06/06/19 11:19 06/09/19 09:23 Morphine Sulfate IVPUSH 2 mg Q4H PRN Administration PAIN LEVEL 7 - 10 Mupirocin 1 applic 06/06/19 22:00 06/09/19 09:32 Bactroban Ointment (For Decolonization) - NS 06/11/19 21:59 1 applic BID [place] Administration Nicotine 14 mg 06/07/19 10:00 06/09/19 09:23 Nicoderm Patch - TD 14 mg DAILY [place] Administration Pantoprazole Sodium 40 mg 06/09/19 10:00 06/09/19 09:57 Protonix Iv IVPUSH 40 mg BID [place] Administration Prochlorperazine Edisylate 10 mg 06/06/19 11:19 Compazine Injection - IVPB Q4H PRN NAUSEA AND/OR VOMITING ASSESSMENT/PLAN: 58yM w no significant PMHx presenting w AB pain concerning for acute peritonitis d/t possible peptic ulcer perforation. Pt refuses surgery Cardiac - Given labetalol PRN for 184/101 Pulm - on 2L NC Neuro - AOx3, no active issues GI - acute peritonitis d/t possible peptic ulcer perforation - CT AB today showed enlarged complex fluid collection in cul-de-sac measuring 5x7x7.8cm suggestive of abscess, internal hernia w several dilated and thickened small bowel loops up to 14mm, extravasation of contrast. No pneumatosis. Lung : emphysematous changes and bullous disease in lower lobes w interstitial stranding, moderate effusion on R side, fluid in RLL bronchus, subpleurla blebs. - Had thorough conversation with pt about new CT findings, high risk of mortality without emergent intervention. Primary team notified. Pt talked to Nicky Whelan surgical PA. Tip talked to [place], plan to transfer pt to [facility] for further care, will talk to primary care to arrange transfers. Cancelled transfer to med/surg - morphine PRN - NPO - LR @150mL/hr, 1000mL - I/O ID - WBC downtrending 27 to 21, monitor - blood cx negative - dilucan, flagyl, zosyn FEN - Fluids: LR @150mL/hr, 1000mL - Electrolyte abnormalities: none - Nutrition: NPO PPX DVT - SCDs GI - none Full code Dispo - ICU Johnny GEORGE Resident PGY1 Discussed w attending Dr Stoner Visit type - Emergency Visit Emergency Visit: Yes ED Registration Date: 06/05/19 Care time: The patient presented to the Emergency Department on the above date and was hospitalized for further evaluation of their emergent condition. - New Patient This patient is new to me today: Yes Date on this admission: 06/09/19 - Critical Care Critical Care patient: Yes Total Critical Care Time (in minutes): 35 Critical Care Statement: The care of this patient involved high complexity decision making to prevent further life threatening deterioration of the patient 's condition and/or to evaluate & treat vital organ system(s) failure or risk of failure. ATTENDING PHYSICIAN STATEMENT I saw and evaluated the patient. I reviewed the resident's note and discussed the case with the resident. I agree with the resident's findings and plan as documented. SUBJECTIVE: OBJECTIVE: ASSESSMENT AND PLAN:
--- NOTE | 2019-06-09 12:55 | PN ---
Teaching Attending Note Name of Resident: Ally Lau ATTENDING PHYSICIAN STATEMENT I saw and evaluated the patient. I reviewed the resident's note and discussed the case with the resident. I agree with the resident's findings and plan as documented. SUBJECTIVE: No fever or chills. has abd pain but improved. No N/V. had watery BMs. has difficulty with urinating OBJECTIVE: NAD. MM, cooperative CV: RRR, no MRG Lungs: CTAB Abd: soft, Tenderness in suprapubic area, LLQ, and LUQ and epigastric area. no rebound. decreased BS. bladder is percussed slightly below the umbilicus Ext: No edema or erythema. thick silvery plaque on his L knee. eczematous lesions on dorsal feet ASSESSMENT AND PLAN: 58 y/o man with h/o nicotine dependence who presented with worsening abdominal pain. he was found to have peritonitis 1- Acute peritonitis: with possible Peptic ulcer perforation. other possibilities like ischemia , ETC are not completely excluded 2- severe sepsis 3- Lactic acidosis 4- Enlarged prostate 5- L renal cyst 6- Uncontrolled HTN Plan : -condition is stable at this point - CT of abd today . if there is a drainable collection, will d/w pt and arrange drainage -blodo cx neg to date x 72 hr - cont diflucan, flagyl and zosyn - NPO - cont IVf - cont morphine - cont IV labetalol as needed for HTN - SCds
[2019-06-09] MEDS: LABETALOL HCL 5 MG/1 ML (100MG/20 ML VIAL) IVPUSH PRN ×2 (13:56→22:07)
--- NOTE | 2019-06-09 17:03 | PN ---
Progress Note (short form) - Note Progress Note: Patient seen and examined Denies pain Still refusing surgery Vital Signs Temp 99.3 F 06/09/19 14:59 Pulse 96 H 06/09/19 15:50 Resp 24 H 06/09/19 15:50 BP 176/108 H 06/09/19 15:50 Pulse Ox 96 06/09/19 07:45 NAD Abdomen nontender but ++distention CBC, BMP 06/09/19 05:45 06/09/19 05:45 CT with internal hernia with abscess Discussed again with patient - refusing surgery. Continue abx.
[2019-06-09] MEDS: LACTATED RINGERS SOLUTION 1,000 ML IV SCH (17:23)
--- NOTE | 2019-06-09 18:47 | PN ---
Progress Note (short form) - Note Progress Note: surgery pt had repeat ct today which shows a proximal jejunal perforation with communicating collection of contrast in left pamela-abdomen. There is no sbo and contrast goes to colon. possible abscess in pelvis as well. Pt reportedly now wants surgery. This process has now been going on for 5+ days and the proximal jejunum is extremely thickened and inflamed. surgery will likey involve several enterotomies and proximal location to ligament may require duodenal takedown from pancreas for anastamosis. Pt should be transferred to tertiary care center for further management. I spoke with Dr. Pineda and he agrees to accept patient. Pt is stable for transfer with a contained perforation.
--- NOTE | 2019-06-09 20:42 | DS ---
Physical Exam: SUBJECTIVE: Patient seen and examined, pt stable for now, afebrile and NAD, must be transfered to [facility] for management of perforation. OBJECTIVE: Vital Signs Period Temp Pulse Resp BP Sys/Ibrahim Pulse Ox Last 24 Hr 99.1 F-99.5 F 85-116 16-24 153-181/91-108 96 PHYSICAL EXAM GENERAL: The patient is awake, alert, and fully oriented, in no acute distress. EYES: PERRL, extraocular movements intact, ENT: oropharynx clear without exudates, moist mucous membranes. NECK: supple. No LAD, no carotid bruit LUNGS: Breath sounds equal, clear to auscultation bilaterally, no wheezes, no crackles, HEART: Regular rate and rhythm, S1, S2 without murmur, rub or gallop. ABDOMEN: +tender, +distended, +guarding, +rebound. BS+ EXTREMITIES: 2+ pulses, warm, NEUROLOGICAL: Cranial nerves II through XII grossly intact. Strength 5/5 b/l UE and LE, sensation 5/5 b/l UE and LE SKIN: Warm, dry, LABS Laboratory Results - last 24 hr 06/09/19 06/09/19 06/09/19 05:40 05:45 05:45 WBC 21.6 H RBC 4.24 Hgb 13.0 Hct 38.6 MCV 90.9 MCH 30.6 MCHC 33.7 RDW 14.0 Plt Count 299 MPV 9.1 Absolute Neuts (auto) 17.2 H Neutrophils % 79.7 Neutrophils % (Manual) 88.0 H Band Neutrophils % 0.0 Lymphocytes % 10.1 D Lymphocytes % (Manual) 6.0 L D Monocytes % 9.2 Monocytes % (Manual) 6 D Eosinophils % 0.7 D Eosinophils % (Manual) 0.0 Basophils % 0.3 Basophils % (Manual) 0.0 Myelocytes % (Man) 0 Promyelocytes % (Man) 0 Blast Cells % (Manual) 0 Nucleated RBC % 0 Metamyelocytes 0 Hypochromia 0 Platelet Estimate Normal Polychromasia 0 Poikilocytosis 0 Anisocytosis 0 Microcytosis 0 Macrocytosis 0 Sodium 140 Potassium 3.5 Chloride 103 Carbon Dioxide 26 Anion Gap 11 BUN 14.2 Creatinine 0.9 Est GFR (CKD-EPI)AfAm 109.50 Est GFR (CKD-EPI)NonAf 94.48 Random Glucose 91 Lactic Acid 1.2 Calcium 8.2 L Phosphorus 2.8 Magnesium 2.0 HOSPITAL COURSE: Date of Admission:06/05/19 58 y/o M w/ no PMH presents w/ abdominal pain for few weeks which has worsened w / acute peritonitis w/ possible perforation. Pt refusing surgical intervention and would only consider medical treatment. Pt at bedside c/o of abdominal pain and difficulty sleeping overnight, but no other issues. Overnight pt's BP was elevated to 170/98 for which he was given labetolol. Admits to Nonbloody diarrhea and abdominal pain. Pt refused surgery so was managed w/ Abx including diflucan, flagyl and zosyn, given labetolol for HTN. Pt underwent Abd CT, CXR, EKG, all consistent w/ acute peritonitis w/ perforation. Pt required a higher level of care from a tertiary center so was transfered to [facility]. EKG: Sinus tachy, possible Left atrial enlargement CT: proximal jejunal perforation with communicating collection of contrast in left pamela-abdomen. No sbo and contrast goes to colon. Possible abscess in pelvis as well. Date of Discharge: 06/09/19 Discharge Summary Problems reviewed: Yes Reason For Visit: INTRACTABLE ABD PAIN Current Active Problems Abdominal pain (Acute) Acute abdomen (Acute) Emphysematous gastritis (Acute) Peritonitis (Acute) Condition: Guarded - Instructions Disposition: TRANSFER ACUTE CARE/OTHER HOSP ATTENDING PHYSICIAN STATEMENT I saw and evaluated the patient. I reviewed the resident's note and discussed the case with the resident. I agree with the resident's findings and plan as documented. SUBJECTIVE: OBJECTIVE: ASSESSMENT AND PLAN:
[2019-06-09] MEDS: CHLORHEXIDINE GLUCONATE 4% CLEANSER FOR DECOLONIZATION TP SCH (21:30)
[2019-06-10 02:09] VITALS: BP 162/100; PULSE 100; TEMP 99
== END 2019-06-10 00:25 | disposition short-term general hospital (02) | DRG 720 ==
LOC: JER 03:32 → JERBED 09:12 → J8W 12:25 → JICU 06-06 12:17
PROVIDERS: ADMIT Internal Medicine; ATTEND Internal Medicine
DX: A41.9 Sepsis, unspecified organism (principal); R18.8 Other ascites; R65.20 Severe sepsis without septic shock; K65.0 Generalized (acute) peritonitis; F17.210 Nicotine dependence, cigarettes, uncomplicated; R00.0 Tachycardia, unspecified; D72.829 Elevated white blood cell count, unspecified; K29.70 Gastritis, unspecified, without bleeding; N28.1 Cyst of kidney, acquired; E87.2 Acidosis; N40.0 Benign prostatic hyperplasia without lower urinary tract symptoms; K65.9 Peritonitis, unspecified; R10.0 Acute abdomen; I10 Essential (primary) hypertension; K63.1 Perforation of intestine (nontraumatic)
CPT/HCPCS: 36415; 71045-TC-FY; 74018-TC-FY; 74176-TC; 74177-TC; 80048; 80053; 81003; 83605; 83615; 83690; 83735; 84100; 84484; 85025; 85610; 86850; 86900; 86901; 87040; 87045; 87046; 87077; 87086; 87324; 87389; 87449; 93005; 93010; 94010; 99284-25; J0131; J7030; Q9967

== ENCOUNTER 2023-09-13 17:29 | Inpatient (IN) | payer OTHER ==
[2023-09-13] MEDS ORDERED: ACETAMINOPHEN INJECTION 100 ML IVPB ONE ×2 (18:45→20:07)
[2023-09-13 19:20] LABS: BASO % 0.6 % (0-2.0); EOS % 2.7 % (0-4.5); HEMATOCRIT 40.4 % (35.4-49); HEMOGLOBIN 12.6 GM/dL (11.7-16.9); LYMPH % 25.6 % (8-40); MCH 26.4 pg (25.7-33.7); MCHC 31.3 g/dl (32.0-35.9); MEAN CELL VOLUME 84.5 fl (80-96); MEAN PLT VOLUME 9.2 fl (7.5-11.1); MONO % 7.9 % (3.8-10.2); NEUT % 63.2 % (42.8-82.8); PLATELET COUNT 267 10^3/uL (134-434); RBC 4.78 M/mm3 (4.00-5.60); RDW 16.2 % (11.9-15.9); WHITE BLOOD COUNT 12.3 K/mm3 (4.0-10.0)
[2023-09-13 19:28] LABS: INR 1.02 (0.83-1.09); PROTHROMBIN TIME (PATIENT) 11.8 SEC (9.7-13.0)
[2023-09-13 19:30] LABS: ACTIVATED PTT 23.4 SECONDS (25.2-36.5)
[2023-09-13 19:33] LABS: CALCIUM 9.4 mg/dL (8.5-10.1)
[2023-09-13 19:34] LABS: ALBUMIN 4.1 g/dl (3.4-5.0); BLOOD UREA NITROGEN 11.1 mg/dL (7-18); MAGNESIUM 2.4 mg/dL (1.8-2.4)
[2023-09-13 19:37] LABS: CREATININE 1.2 mg/dL (0.55-1.3)
[2023-09-13 19:39] LABS: BILIRUBIN,TOTAL 0.4 mg/dL (0.2-1); TOT PROT 8.1 g/dl (6.4-8.2)
[2023-09-13] MEDS: ACETAMINOPHEN 1000 MG/100 ML BAG IVPB ONE (20:22)
[2023-09-13] MEDS: LACTATED RINGERS SOLUTION 1000 ML INFUS.BAG IV ONE (20:22)
[2023-09-13 22:45] LABS: PH,URINE 5.5 (5.0-8.0); URINE APPEARANCE CLEAR; URINE BILIRUBIN NEGATIVE (NEGATIVE); URINE COLOR YELLOW; URINE GLUCOSE (UA) NEGATIVE (NEGATIVE); URINE KETONE NEGATIVE (NEGATIVE); URINE LEUK ESTERASE NEGATIVE (NEGATIVE); URINE NITRITE NEGATIVE (NEGATIVE); URINE PROTEIN TRACE (NEGATIVE); URINE UROBILINOGEN 0.2 mg/dL (0.2-1.0)
[2023-09-13] MEDS ORDERED: morphine SULFATE 4 MG/ML VIAL ONE (23:16)
[2023-09-13] MEDS: morphine CARPU-JECT 4 MG/1 ML DISP.SYRIN IVPUSH ONE (23:23)
[2023-09-14] MEDS: DEXTROSE 5%-NORMAL SALINE 1,000 ML IV SCH (06:16)
[2023-09-14] MEDS: amLODIPine BESYLATE 5 MG TABLET (FP) PO SCH (06:17)
[2023-09-14 07:14] LABS: BASO % 0.6 % (0-2.0); EOS % 1.9 % (0-4.5); HEMATOCRIT 38.2 % (35.4-49); HEMOGLOBIN 12.2 GM/dL (11.7-16.9); MCH 27.2 pg (25.7-33.7); MEAN PLT VOLUME 9.6 fl (7.5-11.1); MONO % 4.6 % (3.8-10.2); NEUT % 74.9 % (42.8-82.8); PLATELET COUNT 271 10^3/uL (134-434); RBC 4.49 M/mm3 (4.00-5.60); WHITE BLOOD COUNT 16.2 K/mm3 (4.0-10.0)
[2023-09-14 07:53] LABS: ALBUMIN 4.4 g/dl (3.4-5.0); CALCIUM 10.2 mg/dL (8.5-10.1)
[2023-09-14 07:56] LABS: CREATININE 1.2 mg/dL (0.55-1.3); PHOSPHOROUS 3.5 mg/dL (2.5-4.9)
[2023-09-14 07:57] LABS: BILIRUBIN,TOTAL 0.5 mg/dL (0.2-1); TOT PROT 8.4 g/dl (6.4-8.2)
[2023-09-14] MEDS ORDERED: TAMSULOSIN HCL 0.4 MG CAP ONE (08:42)
[2023-09-14] MEDS: TAMSULOSIN HCL 0.4 MG CAP PO SCH (08:45)
[2023-09-14] MEDS: ENOXAPARIN NA (PORCINE) 40 MG/0.4 ML DISP.SYRIN SQ SCH (09:14)
[2023-09-14 15:10] VITALS: BMI 22.6
[2023-09-14] MEDS: ACETAMINOPHEN 325 MG TABLET (FP) PO PRN (15:18)
[2023-09-15 10:22] LABS: BASO % 0.7 % (0-2.0); EOS % 2.9 % (0-4.5); HEMATOCRIT 36.3 % (35.4-49); HEMOGLOBIN 11.6 GM/dL (11.7-16.9); LYMPH % 19.4 % (8-40); MCHC 31.9 g/dl (32.0-35.9); MEAN CELL VOLUME 84.7 fl (80-96); MEAN PLT VOLUME 9.1 fl (7.5-11.1); MONO % 6.5 % (3.8-10.2); NEUT % 70.5 % (42.8-82.8); PLATELET COUNT 245 10^3/uL (134-434); RBC 4.29 M/mm3 (4.00-5.60); RDW 15.8 % (11.9-15.9); WHITE BLOOD COUNT 11.4 K/mm3 (4.0-10.0)
[2023-09-15 10:41] LABS: POTASSIUM 3.3 mmol/L (3.5-5.1)
[2023-09-15 10:43] LABS: BLOOD UREA NITROGEN 9.4 mg/dL (7-18); CALCIUM 9.5 mg/dL (8.5-10.1); MAGNESIUM 1.9 mg/dL (1.8-2.4)
[2023-09-15 10:46] LABS: CREATININE 1.2 mg/dL (0.55-1.3)
[2023-09-15 10:47] LABS: PHOSPHOROUS 3.6 mg/dL (2.5-4.9)
[2023-09-15] MEDS: BICALUTAMIDE 50 MG TABLET (FP) PO SCH (14:26)
[2023-09-15] MEDS: POTASSIUM CHLORIDE ORAL LIQUID 20 MEQ/15 ML PO ONE (18:22)
[2023-09-15] MEDS: PIPERACILLIN/TAZOB 3.375 GM 3.375 GM in DEXTROSE 5%-WATER - 50 ML IVPB SCH (18:22)
[2023-09-16 10:45] LABS: POTASSIUM 3.9 mmol/L (3.5-5.1)
[2023-09-16 10:52] LABS: ALBUMIN 3.8 g/dl (3.4-5.0); PHOSPHOROUS 4.4 mg/dL (2.5-4.9)
[2023-09-16 10:54] LABS: BILIRUBIN,TOTAL 0.6 mg/dL (0.2-1); TOT PROT 7.6 g/dl (6.4-8.2)
[2023-09-16 10:55] LABS: CREATININE 1.1 mg/dL (0.55-1.3)
[2023-09-16 10:58] LABS: BASO % 1.1 % (0-2.0); CALCIUM 9.6 mg/dL (8.5-10.1); EOS % 2.7 % (0-4.5); HEMATOCRIT 36.4 % (35.4-49); HEMOGLOBIN 11.9 GM/dL (11.7-16.9); LYMPH % 21.4 % (8-40); MCH 27.6 pg (25.7-33.7); MCHC 32.8 g/dl (32.0-35.9); MEAN CELL VOLUME 84.3 fl (80-96); MEAN PLT VOLUME 9.7 fl (7.5-11.1); MONO % 9.1 % (3.8-10.2); NEUT % 65.7 % (42.8-82.8); PLATELET COUNT 236 10^3/uL (134-434); RBC 4.31 M/mm3 (4.00-5.60); RDW 16.1 % (11.9-15.9); WHITE BLOOD COUNT 10.2 K/mm3 (4.0-10.0)
[2023-09-16 10:59] LABS: BLOOD UREA NITROGEN 8.4 mg/dL (7-18); MAGNESIUM 2.1 mg/dL (1.8-2.4)
[2023-09-17 08:58] LABS: BASO % 0.7 % (0-2.0); EOS % 4.1 % (0-4.5); HEMATOCRIT 36.4 % (35.4-49); HEMOGLOBIN 11.9 GM/dL (11.7-16.9); LYMPH % 33.7 % (8-40); MCH 27.5 pg (25.7-33.7); MCHC 32.7 g/dl (32.0-35.9); MEAN PLT VOLUME 9.3 fl (7.5-11.1); MONO % 11.6 % (3.8-10.2); NEUT % 49.9 % (42.8-82.8); PLATELET COUNT 258 10^3/uL (134-434); RBC 4.33 M/mm3 (4.00-5.60); RDW 15.9 % (11.9-15.9); WHITE BLOOD COUNT 8.7 K/mm3 (4.0-10.0)
[2023-09-17 09:22] LABS: POTASSIUM 3.8 mmol/L (3.5-5.1)
[2023-09-17 09:24] LABS: ALBUMIN 3.8 g/dl (3.4-5.0); BLOOD UREA NITROGEN 11.7 mg/dL (7-18); CALCIUM 9.2 mg/dL (8.5-10.1)
[2023-09-17 09:27] LABS: CREATININE 1.3 mg/dL (0.55-1.3)
[2023-09-17 09:29] LABS: BILIRUBIN,TOTAL 0.5 mg/dL (0.2-1); TOT PROT 7.3 g/dl (6.4-8.2)
[2023-09-17] MEDS ORDERED: SENNOSIDES 8.6MG TABLET (FP) PO PRN (11:41)
[2023-09-17] MEDS ORDERED: SENNOSIDES 8.6MG TABLET (FP) PO SCH (11:45)
[2023-09-17] MEDS: POLYETHYLENE GLYCOL (HEALTHYLAX) 3350 17 GM PACKET PO SCH (17:37)
[2023-09-17] MEDS: BISACODYL 5 MG TABLET.DR (FP) PO ONE (20:34)
[2023-09-18 10:31] LABS: BASO % 0.9 % (0-2.0); EOS % 4.4 % (0-4.5); HEMATOCRIT 36.2 % (35.4-49); HEMOGLOBIN 11.5 GM/dL (11.7-16.9); LYMPH % 21.9 % (8-40); MCHC 31.7 g/dl (32.0-35.9); MEAN CELL VOLUME 85.1 fl (80-96); MEAN PLT VOLUME 9.4 fl (7.5-11.1); MONO % 7.8 % (3.8-10.2); PLATELET COUNT 247 10^3/uL (134-434); RBC 4.26 M/mm3 (4.00-5.60); RDW 15.7 % (11.9-15.9)
[2023-09-18 10:48] LABS: POTASSIUM 3.9 mmol/L (3.5-5.1)
[2023-09-18 10:52] LABS: CALCIUM 9.1 mg/dL (8.5-10.1)
[2023-09-18 10:53] LABS: ALBUMIN 3.7 g/dl (3.4-5.0); BLOOD UREA NITROGEN 13.5 mg/dL (7-18)
[2023-09-18 10:56] LABS: CREATININE 1.3 mg/dL (0.55-1.3)
[2023-09-18 10:58] LABS: BILIRUBIN,TOTAL 0.5 mg/dL (0.2-1); TOT PROT 7.1 g/dl (6.4-8.2)
[2023-09-18] MEDS: POLYETHYLENE GLYCOL (HEALTHYLAX) 3350 17 GM PACKET PO SCH (11:09)
[2023-09-18] MEDS: DOCUSATE SODIUM 100 MG CAPSULE (FP) PO ONE (11:09)
[2023-09-18] MEDS: BISACODYL 10 MG SUPP.RECT PR ONE (13:18)
[2023-09-18] MEDS: MINERAL OIL ENEMA 133 ML ENEMA RC ONE (14:20)
[2023-09-18] MEDS: HEPARIN NA (PORCINE) 5,000 UNITS/ML 1ML VIAL SQ ONE ×2 (21:49)
[2023-09-19] MEDS ORDERED: MIDAZOLAM HCL 2 MG/2 ML SINGLE DOSE VIAL ONE (09:22)
[2023-09-19] MEDS ORDERED: FENTANYL CITRATE/PF 50 MCG/ML VIAL ONE ×2 (09:23→09:54)
[2023-09-19] MEDS: SODIUM CHLORIDE 500 ML IV SCH (09:40)
[2023-09-19] MEDS: MIDAZOLAM HCL 2 MG/2 ML SINGLE DOSE VIAL IVPUSH SCH (09:48)
[2023-09-19] MEDS: FENTANYL CITRATE/PF 50 MCG/ML VIAL IVPUSH SCH (09:48)
[2023-09-19] MEDS: TRIMETHOBENZAMIDE HCL 200MG/2ML INJ IM ONE (12:01)
[2023-09-19 15:25] LABS: HEMATOCRIT 35.3 % (35.4-49); HEMOGLOBIN 11.7 GM/dL (11.7-16.9); MCH 27.9 pg (25.7-33.7); MCHC 33.3 g/dl (32.0-35.9); MEAN CELL VOLUME 83.9 fl (80-96); MEAN PLT VOLUME 9.2 fl (7.5-11.1); PLATELET COUNT 256 10^3/uL (134-434); RBC 4.21 M/mm3 (4.00-5.60); RDW 15.5 % (11.9-15.9)
[2023-09-19 15:34] LABS: INR 1.13 (0.83-1.09); PROTHROMBIN TIME (PATIENT) 13.1 SEC (9.7-13.0)
[2023-09-19 15:37] LABS: ACTIVATED PTT 27.3 SECONDS (25.2-36.5)
[2023-09-19 15:46] LABS: POTASSIUM 3.9 mmol/L (3.5-5.1)
[2023-09-19 15:48] LABS: CALCIUM 9.2 mg/dL (8.5-10.1)
[2023-09-19 15:49] LABS: BLOOD UREA NITROGEN 11.7 mg/dL (7-18)
[2023-09-19 15:52] LABS: CREATININE 1.1 mg/dL (0.55-1.3)
[2023-09-20 09:21] LABS: HEMATOCRIT 38.2 % (35.4-49); HEMOGLOBIN 12.1 GM/dL (11.7-16.9); MCHC 31.7 g/dl (32.0-35.9); MEAN CELL VOLUME 85.2 fl (80-96); MEAN PLT VOLUME 9.2 fl (7.5-11.1); PLATELET COUNT 272 10^3/uL (134-434); RBC 4.49 M/mm3 (4.00-5.60); WHITE BLOOD COUNT 9.7 K/mm3 (4.0-10.0)
[2023-09-20 09:49] LABS: POTASSIUM 4.1 mmol/L (3.5-5.1)
[2023-09-20 10:34] LABS: CALCIUM 9.8 mg/dL (8.5-10.1)
[2023-09-20 10:38] LABS: BLOOD UREA NITROGEN 14.6 mg/dL (7-18)
[2023-09-20 10:41] LABS: CREATININE 1.2 mg/dL (0.55-1.3)
[2023-09-20 11:51] VITALS: BP 131/71; PULSE 78; RESP 20; TEMP 98.4
== END 2023-09-20 13:41 | disposition home or self-care (01) | DRG 484 ==
LOC: JER 17:29 → JERBED 09-14 00:46 → J6S 09-14 15:01
PROVIDERS: ADMIT Internal Medicine; ATTEND Internal Medicine
PROC: 07DC3ZX Extraction of Pelvis Lymphatic, Percutaneous Approach, Diagnostic (ICD-10-PCS; principal; 2023-09-19)
DX: D40.0 Neoplasm of uncertain behavior of prostate (principal); N40.0 Benign prostatic hyperplasia without lower urinary tract symptoms; N41.0 Acute prostatitis; N43.3 Hydrocele, unspecified; R59.1 Generalized enlarged lymph nodes; N42.89 Other specified disorders of prostate; R19.00 Intra-abdominal and pelvic swelling, mass and lump, unspecified site; D72.829 Elevated white blood cell count, unspecified; R51.9 Headache, unspecified; I10 Essential (primary) hypertension; N41.8 Other inflammatory diseases of prostate; M54.50 Low back pain, unspecified; K59.00 Constipation, unspecified
CPT/HCPCS: 0241U-QW; 36415; 38505; 70553-TC; 71045-TC-FY; 71250-TC; 72148-TC; 74018-TC-FY; 74177-TC; 76870-TC; 77012-TC; 78306-TC; 80048; 80053; 81003; 83605; 83735; 84100; 84153; 84402; 84403; 85025; 85027; 85610; 85730; 86850; 86900; 86901; 87040; 87086; 88305-TC; 88341-TC; 93005; 93010; 99285-25; A9503; J0131; J1644

== ENCOUNTER 2023-10-04 10:11 | Day surgery (SDC) | payer OTHER ==
[2023-10-04] MEDS: LEUPROLIDE ACETATE (ELIGARD) 22.5 MG SYRINGE SQ ONE (10:55)
[2023-10-04 18:36] VITALS: BP 114/76; PULSE 67; RESP 18; TEMP 97.7
== END 2023-10-04 11:30 | disposition home or self-care (01) ==
LOC: J7W 10:11 → JONCCHEMO 10:11
PROVIDERS: ATTEND Internal Medicine Hematology & Oncology
PROC: 3E013GC Introduction of Other Therapeutic Substance into Subcutaneous Tissue, Percutaneous Approach (ICD-10-PCS; principal; 2023-10-04)
DX: C61 Malignant neoplasm of prostate (principal)
CPT/HCPCS: 96372; J9217

== ENCOUNTER 2023-10-17 04:32 | Day surgery (SDC) | payer OTHER ==
[2023-10-11 14:28] VITALS: BMI 22.6
[2023-10-17 08:38] LABS: EOS % 4.6 % (0-4.5); HEMATOCRIT 36.1 % (35.4-49); LYMPH % 31.5 % (8-40); MCH 27.4 pg (25.7-33.7); MCHC 33.2 g/dl (32.0-35.9); MEAN CELL VOLUME 82.7 fl (80-96); MONO % 7.4 % (3.8-10.2); NEUT % 55.5 % (42.8-82.8); PLATELET COUNT 207 10^3/uL (134-434); RBC 4.37 M/mm3 (4.00-5.60); RDW 15.9 % (11.9-15.9); WHITE BLOOD COUNT 11.2 K/mm3 (4.0-10.0)
[2023-10-17 08:48] LABS: INR 1.04 (0.83-1.09); PROTHROMBIN TIME (PATIENT) 12.1 SEC (9.7-13.0)
[2023-10-17 09:12] LABS: POTASSIUM 4.1 mmol/L (3.5-5.1)
[2023-10-17 09:15] LABS: BLOOD UREA NITROGEN 17.6 mg/dL (7-18); CALCIUM 9.5 mg/dL (8.5-10.1)
[2023-10-17 12:48] VITALS: RESP 18
[2023-10-17 13:25] VITALS: BP 135/63; PULSE 77; TEMP 97.5
== END 2023-10-17 13:55 | disposition home or self-care (01) ==
LOC: JRADIR 04:32
PROVIDERS: ATTEND Internal Medicine Hematology & Oncology
PROC: 0BBJ3ZX Excision of Left Lower Lung Lobe, Percutaneous Approach, Diagnostic (ICD-10-PCS; principal; 2023-10-17)
DX: C34.32 Malignant neoplasm of lower lobe, left bronchus or lung (principal)
CPT/HCPCS: 32408; 36415; 77012-TC; 80048; 85025; 85610; 88305-TC; 88341-TC; 88342-TC

== ENCOUNTER 2023-11-22 04:17 | Inpatient (IN) | payer OTHER ==
[2023-11-22] MEDS ORDERED: BUPIVACAINE LIPOSOME/PF (EXPAREL) 266 MG/20 ML VIAL ONE (12:19)
[2023-11-22] MEDS ORDERED: BUPIVACAINE HCL/PF 0.25% (2.5MG/ML) 10 ML VIAL ONE ×2 (12:19→14:06)
[2023-11-22] MEDS ORDERED: oxyCODONE HCL 5 MG TABLET PO PRN (12:55)
[2023-11-22] MEDS ORDERED: PROPOFOL 40 ML ONE (13:13)
[2023-11-22] MEDS ORDERED: FENTANYL CITRATE/PF 50 MCG/ML VIAL ONE (13:13)
[2023-11-22] MEDS ORDERED: MIDAZOLAM HCL 2 MG/2 ML SINGLE DOSE VIAL ONE (13:13)
[2023-11-22] MEDS ORDERED: HYDROmorphone HCl 2 MG/ML VIAL ONE (13:13)
[2023-11-22] MEDS ORDERED: ROCURONIUM BROMIDE 50 MG/5 ML SYRINGE ONE ×2 (13:18→14:15)
[2023-11-22] MEDS: ceFAZolin SODIUM 1 GM VIAL IVPB ONE (13:59)
[2023-11-22] MEDS ORDERED: ALBUTEROL SO4 HFA INHALER IH ONE (14:07)
[2023-11-22] MEDS: BUPIVACAINE HCL/PF 0.25% (2.5MG/ML) 10 ML VIAL IJ ONE (14:09)
[2023-11-22] MEDS ORDERED: SUGAMMADEX SODIUM 200 MG/2 ML VIAL ONE (14:16)
[2023-11-22] MEDS ORDERED: ONDANSETRON 4 MG/2 ML VIAL IVPUSH PRN (15:23)
[2023-11-22] MEDS: ACETAMINOPHEN 1000 MG/100 ML BAG IVPB ONE (15:30)
[2023-11-22] MEDS ORDERED: ACETAMINOPHEN INJECTION 100 ML IVPB ONE (15:47)
[2023-11-22] MEDS: HYDROmorphone *PCA* 10MG/50ML DISP.SYRIN PCA SCH (16:10)
[2023-11-22] MEDS: LACTATED RINGERS SOLUTION 1,000 ML IV SCH (16:24)
[2023-11-22] MEDS: HEPARIN NA (PORCINE) 5,000 UNITS/ML 1ML VIAL SQ ONE (16:33)
[2023-11-22] MEDS: ALBUMIN HUMAN 5% 250 ML IV SOLUTION IV ONE (17:40)
[2023-11-22] MEDS: DOCUSATE SODIUM 100 MG CAPSULE (FP) PO SCH (17:41)
[2023-11-22] MEDS: ACETAMINOPHEN 325 MG TABLET (FP) PO SCH ×2 (17:43→23:55)
[2023-11-22] MEDS: KETOROLAC TROMETHAMINE 15 MG/ML VIAL IVPUSH SCH ×2 (18:19→21:22)
[2023-11-22] MEDS: SENNOSIDES 8.6MG TABLET (FP) PO SCH (21:22)
[2023-11-23 07:14] LABS: HEMATOCRIT 38.7 % (35.4-49); HEMOGLOBIN 12.1 GM/dL (11.7-16.9); MCH 26.4 pg (25.7-33.7); MCHC 31.2 g/dl (32.0-35.9); MEAN CELL VOLUME 84.5 fl (80-96); MEAN PLT VOLUME 9.6 fl (7.5-11.1); PLATELET COUNT 228 10^3/uL (134-434); RBC 4.58 M/mm3 (4.00-5.60); RDW 15.5 % (11.9-15.9); WHITE BLOOD COUNT 19.9 K/mm3 (4.0-10.0)
[2023-11-23 07:39] LABS: POTASSIUM 4.5 mmol/L (3.5-5.1)
[2023-11-23 07:56] LABS: ALBUMIN 4.1 g/dl (3.4-5.0); BLOOD UREA NITROGEN 14.9 mg/dL (7-18); CALCIUM 10.2 mg/dL (8.5-10.1)
[2023-11-23 07:57] LABS: MAGNESIUM 1.6 mg/dL (1.8-2.4)
[2023-11-23 07:59] LABS: CREATININE 1.1 mg/dL (0.55-1.3); PHOSPHOROUS 5.6 mg/dL (2.5-4.9)
[2023-11-23 08:00] LABS: TOT PROT 7.6 g/dl (6.4-8.2)
[2023-11-23 08:01] LABS: BILIRUBIN,TOTAL 0.6 mg/dL (0.2-1)
[2023-11-23] MEDS: TAMSULOSIN HCL 0.4 MG CAP PO SCH (08:32)
[2023-11-23] MEDS: MAGNESIUM SULF 50% (8.12 MEQ/2 ML-1 GM VIAL) IVPB ONE (09:50)
[2023-11-23] MEDS: ENOXAPARIN NA (PORCINE) 40 MG/0.4 ML DISP.SYRIN SQ SCH (09:51)
[2023-11-23] MEDS: FINASTERIDE 5 MG TABLET (FP) PO SCH (09:51)
[2023-11-23] MEDS: BICALUTAMIDE 50 MG TABLET (FP) PO SCH (09:51)
[2023-11-23] MEDS: CHOLECALCIFEROL (VIT D3) 1,000 UNIT (25 MCG) TABLET PO SCH (09:52)
[2023-11-23] MEDS: CYANOCOBALAMIN 1,000 MCG TABLET (FP) PO SCH (09:52)
[2023-11-23] MEDS: amLODIPine BESYLATE 5 MG TABLET (FP) PO SCH (09:52)
[2023-11-23] MEDS: MULTIVITAMINS THER W-MINERALS COMBO TABLET (FP) PO SCH (09:52)
[2023-11-23] MEDS ORDERED: HEPARIN NA (PORCINE) 5,000 UNITS/ML 1ML VIAL SQ SCH (10:00)
[2023-11-23 15:57] VITALS: BMI 23.3
[2023-11-23 16:42] VITALS: TEMP 98
[2023-11-23 16:43] VITALS: BP 159/78; PULSE 95; RESP 17
== END 2023-11-23 17:11 | disposition home or self-care (01) | DRG 120 ==
LOC: J2C 04:17 → JICU 17:04
PROVIDERS: ADMIT Student in an Organized Health Care Education/Training Program; ATTEND Internal Medicine Pulmonary Disease
PROC: 0W9940Z Drainage of Right Pleural Cavity with Drainage Device, Percutaneous Endoscopic Approach (ICD-10-PCS; 2023-11-22)
PROC: 0BBD4ZZ Excision of Right Middle Lung Lobe, Percutaneous Endoscopic Approach (ICD-10-PCS; principal; 2023-11-22 10:45)
PROC: 0BBC4ZZ Excision of Right Upper Lung Lobe, Percutaneous Endoscopic Approach (ICD-10-PCS; 2023-11-22 10:45)
PROC: 0WP9X0Z Removal of Drainage Device from Right Pleural Cavity, External Approach (ICD-10-PCS; 2023-11-23)
DX: C34.32 Malignant neoplasm of lower lobe, left bronchus or lung (principal); C61 Malignant neoplasm of prostate; I10 Essential (primary) hypertension; N40.0 Benign prostatic hyperplasia without lower urinary tract symptoms; R91.8 Other nonspecific abnormal finding of lung field; J43.9 Emphysema, unspecified
CPT/HCPCS: 36415; 71045-TC-FY; 80053; 82962; 83735; 84100; 85027; 86850; 86900; 86901; 86922; 87635; 88307-TC; 88341-TC; 94760; 97116-GP; 97161-GP; J0131

== ENCOUNTER 2023-12-21 04:37 | Day surgery (SDC) | payer OTHER ==
[2023-12-20 09:34] VITALS: BMI 22.8
[2023-12-21] MEDS ORDERED: LIDOCAINE 1%/EPI 1:100000 (20 ML MULTI DOSE VIAL) ONE (09:13)
[2023-12-21 09:14] LABS: BASO % 1.1 % (0-2.0); EOS % 6.2 % (0-4.5); HEMATOCRIT 36.7 % (35.4-49); HEMOGLOBIN 12.1 GM/dL (11.7-16.9); LYMPH % 27.9 % (8-40); MCH 27.8 pg (25.7-33.7); MCHC 32.9 g/dl (32.0-35.9); MEAN CELL VOLUME 84.3 fl (80-96); MEAN PLT VOLUME 9.9 fl (7.5-11.1); MONO % 7.8 % (3.8-10.2); PLATELET COUNT 219 10^3/uL (134-434); RBC 4.35 M/mm3 (4.00-5.60); RDW 16.9 % (11.9-15.9); WHITE BLOOD COUNT 11.9 K/mm3 (4.0-10.0)
[2023-12-21 09:21] LABS: CALCIUM 9.5 mg/dL (8.5-10.1); POTASSIUM 3.8 mmol/L (3.5-5.1)
[2023-12-21 09:22] LABS: BLOOD UREA NITROGEN 13.1 mg/dL (7-18)
[2023-12-21 09:25] LABS: CREATININE 1.1 mg/dL (0.55-1.3)
[2023-12-21] MEDS: SODIUM CHLORIDE 500 ML IV ONE (10:05)
[2023-12-21] MEDS ORDERED: MIDAZOLAM HCL 2 MG/2 ML SINGLE DOSE VIAL ONE (10:09)
[2023-12-21] MEDS: MIDAZOLAM HCL 2 MG/2 ML SINGLE DOSE VIAL IVPUSH SCH (10:13)
[2023-12-22 01:49] VITALS: BP 132/78; PULSE 85; RESP 18; TEMP 98
== END 2023-12-21 13:10 | disposition home or self-care (01) ==
LOC: JRADIR 04:37
PROVIDERS: ATTEND Internal Medicine Hematology & Oncology
PROC: 02HV33Z Insertion of Infusion Device into Superior Vena Cava, Percutaneous Approach (ICD-10-PCS; principal; 2023-12-21)
DX: C34.90 Malignant neoplasm of unspecified part of unspecified bronchus or lung (principal)
CPT/HCPCS: 36561; C1788; 36415; 80048; 85025

== ENCOUNTER 2023-12-25 10:54 | Day surgery (SDC) | payer OTHER ==
[2023-12-25] MEDS: SODIUM CHLORIDE 250 ML IV ONE (12:00)
[2023-12-25] MEDS: FAMOTIDINE/PF 20 MG in SODIUM CHLORIDE 50 ML IVPB ONE (12:15)
[2023-12-25] MEDS: PALONOSETRON HCL 0.25 MG/5 ML VIAL IVPUSH ONE (12:29)
[2023-12-25] MEDS: DEXAMETHASONE SODIUM PHOSPHATE 10 MG, DIPHENHYDRAMINE 25 MG in SODIUM CHLORIDE 100 ML IVPB ONE (12:34)
[2023-12-25] MEDS: PACLITAXEL IVPB ONE (13:23)
[2023-12-25] MEDS: SODIUM CHLORIDE IVPB ONE (13:23)
[2023-12-25] MEDS: PORTA CATH FLUSH 10 ML IVPUSH PRN (15:40)
[2023-12-25] MEDS: LEUPROLIDE ACETATE (ELIGARD) 22.5 MG SYRINGE SQ ONE (16:09)
[2023-12-25 17:05] VITALS: BP 132/75; PULSE 78; RESP 18; TEMP 98.4
== END 2023-12-25 16:00 | disposition home or self-care (01) ==
LOC: JONCCHEMO 10:54 → J7W 10:54 → JONCCHEMO 16:00
PROVIDERS: ATTEND Internal Medicine Hematology & Oncology
PROC: 3E04305 Introduction of Other Antineoplastic into Central Vein, Percutaneous Approach (ICD-10-PCS; principal; 2023-12-25)
PROC: 3E013GC Introduction of Other Therapeutic Substance into Subcutaneous Tissue, Percutaneous Approach (ICD-10-PCS; 2023-12-25)
DX: Z51.11 Encounter for antineoplastic chemotherapy (principal); C34.90 Malignant neoplasm of unspecified part of unspecified bronchus or lung
CPT/HCPCS: 96367; 96372; 96375; 96413; 96415; 96417; J2469; J9217

== ENCOUNTER 2024-01-01 10:20 | Day surgery (SDC) | payer OTHER ==
[2024-01-01 11:14] LABS: BASO % 0.9 % (0-2.0); HEMATOCRIT 37.4 % (35.4-49); HEMOGLOBIN 11.9 GM/dL (11.7-16.9); MCH 27.8 pg (25.7-33.7); MCHC 31.9 g/dl (32.0-35.9); MEAN CELL VOLUME 87.1 fl (80-96); MEAN PLT VOLUME 8.8 fl (7.5-11.1); MONO % 3.3 % (3.8-10.2); NEUT % 72.8 % (42.8-82.8); PLATELET COUNT 246 10^3/uL (134-434); RDW 17.5 % (11.9-15.9); WHITE BLOOD COUNT 9.3 K/mm3 (4.0-10.0)
[2024-01-01] MEDS: SODIUM CHLORIDE 250 ML IV ONE (11:30)
[2024-01-01 11:31] LABS: CHLORIDE 108 mmol/L (98-107); POTASSIUM 3.9 mmol/L (3.5-5.1); SODIUM 138 mmol/L (136-145)
[2024-01-01 11:33] LABS: CALCIUM 9.3 mg/dL (8.5-10.1)
[2024-01-01 11:34] LABS: ALBUMIN 3.6 g/dl (3.4-5.0); ANION GAP 6 mmol/L (4-13); CO2 24 mmol/L (21-32); GLUCOSE,RANDOM 164 mg/dL (74-106)
[2024-01-01 11:36] LABS: BILIRUBIN,DIRECT 0.1 mg/dL (0.0-0.2); CREATININE 1.3 mg/dL (0.55-1.3); SGOT/AST 14 U/L (15-37); SGPT/ALT 18 U/L (13-61)
[2024-01-01 11:38] LABS: BILIRUBIN,TOTAL 0.4 mg/dL (0.2-1); TOT PROT 7.3 g/dl (6.4-8.2)
[2024-01-01 11:39] LABS: ALK PHOS 111 U/L (45-117)
[2024-01-01] MEDS: PALONOSETRON HCL 0.25 MG/5 ML VIAL IVPUSH ONE (12:14)
[2024-01-01] MEDS: DEXAMETHASONE SODIUM PHOSPHATE 10 MG, DIPHENHYDRAMINE 25 MG in SODIUM CHLORIDE 100 ML IVPB ONE (12:17)
[2024-01-01] MEDS: FAMOTIDINE/PF 20 MG in SODIUM CHLORIDE 50 ML IVPB ONE (12:58)
[2024-01-01] MEDS: PACLITAXEL 78 MG in SODIUM CHLORIDE 250 ML IVPB ONE (13:34)
[2024-01-01] MEDS: PORTA CATH FLUSH 10 ML IVPUSH PRN (14:15)
[2024-01-01] MEDS: SODIUM CHLORIDE IVPB ONE (14:38)
[2024-01-01] MEDS: CARBOPLATIN IVPB ONE (14:38)
[2024-01-01 15:45] VITALS: RESP 20; TEMP 98.3
[2024-01-01 16:39] VITALS: BP 112/77; PULSE 84
== END 2024-01-01 14:40 | disposition home or self-care (01) ==
LOC: JONCCHEMO 10:20 → J7W 10:20 → JONCCHEMO 14:40
PROVIDERS: ATTEND Internal Medicine Hematology & Oncology
DX: Z51.11 Encounter for antineoplastic chemotherapy (principal); C34.90 Malignant neoplasm of unspecified part of unspecified bronchus or lung
CPT/HCPCS: 36415; 80048; 80076; 85025; 96375; 96413; 96417; J2469

== ENCOUNTER 2024-01-08 10:14 | Day surgery (SDC) | payer OTHER ==
[2024-01-08] MEDS: SODIUM CHLORIDE 250 ML IV ONE (10:50)
[2024-01-08 10:59] LABS: BASO % 0.5 % (0-2.0); EOS % 2.8 % (0-4.5); HEMATOCRIT 36.7 % (35.4-49); HEMOGLOBIN 12.3 GM/dL (11.7-16.9); LYMPH % 13.3 % (8-40); MCHC 33.4 g/dl (32.0-35.9); MEAN CELL VOLUME 86.7 fl (80-96); MEAN PLT VOLUME 8.9 fl (7.5-11.1); MONO % 9.6 % (3.8-10.2); NEUT % 73.8 % (42.8-82.8); PLATELET COUNT 206 10^3/uL (134-434); RBC 4.23 M/mm3 (4.00-5.60); RDW 18.1 % (11.9-15.9); WHITE BLOOD COUNT 6.6 K/mm3 (4.0-10.0)
[2024-01-08 11:04] LABS: POTASSIUM 4.1 mmol/L (3.5-5.1)
[2024-01-08 11:06] LABS: CALCIUM 8.9 mg/dL (8.5-10.1)
[2024-01-08 11:07] LABS: ALBUMIN 3.8 g/dl (3.4-5.0); BLOOD UREA NITROGEN 20.8 mg/dL (7-18)
[2024-01-08 11:09] LABS: BILIRUBIN,DIRECT 0.1 mg/dL (0.0-0.2)
[2024-01-08 11:10] LABS: CREATININE 1.2 mg/dL (0.55-1.3)
[2024-01-08 11:11] LABS: BILIRUBIN,TOTAL 0.3 mg/dL (0.2-1)
[2024-01-08 11:12] LABS: TOT PROT 7.6 g/dl (6.4-8.2)
[2024-01-08] MEDS: DEXAMETHASONE SODIUM PHOSPHATE 10 MG, DIPHENHYDRAMINE 25 MG in SODIUM CHLORIDE 100 ML IVPB ONE (11:37)
[2024-01-08] MEDS: FAMOTIDINE 20 MG/50 ML IVPB 20 MG/50 ML MG IVPB ONE (12:11)
[2024-01-08] MEDS: PALONOSETRON HCL 0.25 MG/5 ML VIAL IVPUSH ONE (12:11)
[2024-01-08] MEDS: PACLITAXEL 78 MG in SODIUM CHLORIDE 250 ML IVPB ONE (12:51)
[2024-01-08] MEDS: PORTA CATH FLUSH 10 ML IVPUSH PRN (14:00)
[2024-01-08] MEDS: CARBOplatin 155 MG in SODIUM CHLORIDE 250 ML IVPB ONE (14:22)
[2024-01-08 16:15] VITALS: TEMP 98.4
[2024-01-08 16:29] VITALS: BP 112/73; PULSE 87; RESP 18
== END 2024-01-08 14:45 | disposition home or self-care (01) ==
LOC: JONCCHEMO 10:14 → J7W 10:16 → JONCCHEMO 14:45
PROVIDERS: ATTEND Internal Medicine Hematology & Oncology
PROC: 3E04305 Introduction of Other Antineoplastic into Central Vein, Percutaneous Approach (ICD-10-PCS; principal; 2024-01-08)
PROC: 3E0437Z Introduction of Electrolytic and Water Balance Substance into Central Vein, Percutaneous Approach (ICD-10-PCS; 2024-01-08)
PROC: 3E043GC Introduction of Other Therapeutic Substance into Central Vein, Percutaneous Approach (ICD-10-PCS; 2024-01-08)
DX: Z51.11 Encounter for antineoplastic chemotherapy (principal); C34.32 Malignant neoplasm of lower lobe, left bronchus or lung
CPT/HCPCS: 36415; 80048; 80076; 85025; J2469

== ENCOUNTER 2024-01-15 10:40 | Day surgery (SDC) | payer OTHER ==
[2024-01-15] MEDS: SODIUM CHLORIDE 250 ML IV ONE (11:21)
[2024-01-15 11:26] LABS: BASO % 0.6 % (0-2.0); EOS % 1.1 % (0-4.5); HEMATOCRIT 35.9 % (35.4-49); LYMPH % 11.9 % (8-40); MCH 29.2 pg (25.7-33.7); MCHC 33.6 g/dl (32.0-35.9); MEAN PLT VOLUME 8.1 fl (7.5-11.1); MONO % 10.4 % (3.8-10.2); PLATELET COUNT 173 10^3/uL (134-434); RBC 4.13 M/mm3 (4.00-5.60); WHITE BLOOD COUNT 6.5 K/mm3 (4.0-10.0)
[2024-01-15 11:46] LABS: POTASSIUM 4.3 mmol/L (3.5-5.1)
[2024-01-15 11:48] LABS: ALBUMIN 3.7 g/dl (3.4-5.0); CALCIUM 9.5 mg/dL (8.5-10.1)
[2024-01-15 11:51] LABS: BILIRUBIN,DIRECT 0.1 mg/dL (0.0-0.2)
[2024-01-15 11:52] LABS: CREATININE 1.1 mg/dL (0.55-1.3)
[2024-01-15 11:54] LABS: BILIRUBIN,TOTAL 0.4 mg/dL (0.2-1); TOT PROT 7.3 g/dl (6.4-8.2)
[2024-01-15] MEDS: DEXAMETHASONE SODIUM PHOSPHATE 10 MG, DIPHENHYDRAMINE 25 MG in SODIUM CHLORIDE 100 ML IVPB ONE (12:17)
[2024-01-15] MEDS: PALONOSETRON HCL 0.25 MG/5 ML VIAL IVPUSH ONE (12:19)
[2024-01-15] MEDS: FAMOTIDINE 20 MG/50 ML IVPB 20 MG/50 ML MG IVPB ONE (12:56)
[2024-01-15] MEDS: PACLITAXEL 78 MG in SODIUM CHLORIDE 250 ML IVPB ONE (13:27)
[2024-01-15] MEDS: CARBOPLATIN IVPB ONE (14:45)
[2024-01-15] MEDS: SODIUM CHLORIDE IVPB ONE (14:45)
[2024-01-15] MEDS: PORTA CATH FLUSH 10 ML IVPUSH PRN (15:20)
[2024-01-15 16:30] VITALS: BP 118/77; PULSE 76; RESP 20; TEMP 98.3
== END 2024-01-15 15:40 | disposition home or self-care (01) ==
LOC: JONCCHEMO 10:40 → J7W 10:40 → JONCCHEMO 15:40
PROVIDERS: ATTEND Internal Medicine Hematology & Oncology
DX: Z51.11 Encounter for antineoplastic chemotherapy (principal); C34.32 Malignant neoplasm of lower lobe, left bronchus or lung
CPT/HCPCS: 36415; 80048; 80076; 85025; 96367; 96375; 96413; 96417; J2469

== ENCOUNTER 2024-01-22 10:19 | Day surgery (SDC) | payer OTHER ==
[2024-01-22 10:56] LABS: EOS % 0.6 % (0-4.5); HEMATOCRIT 36.9 % (35.4-49); HEMOGLOBIN 12.4 GM/dL (11.7-16.9); LYMPH % 7.6 % (8-40); MCH 29.8 pg (25.7-33.7); MCHC 33.8 g/dl (32.0-35.9); MEAN CELL VOLUME 88.2 fl (80-96); MONO % 8.8 % (3.8-10.2); NEUT % 82.4 % (42.8-82.8); PLATELET COUNT 143 10^3/uL (134-434); RBC 4.18 M/mm3 (4.00-5.60); RDW 18.6 % (11.9-15.9); WHITE BLOOD COUNT 6.8 K/mm3 (4.0-10.0)
[2024-01-22 10:57] LABS: BASO % 0.6 % (0-2.0)
[2024-01-22] MEDS: SODIUM CHLORIDE 250 ML IV ONE (10:59)
[2024-01-22 11:31] LABS: ALBUMIN 3.8 g/dl (3.4-5.0); CALCIUM 9.5 mg/dL (8.5-10.1)
[2024-01-22 11:34] LABS: BILIRUBIN,DIRECT 0.2 mg/dL (0.0-0.2); CREATININE 1.2 mg/dL (0.55-1.3)
[2024-01-22 11:36] LABS: BILIRUBIN,TOTAL 0.5 mg/dL (0.2-1); TOT PROT 7.5 g/dl (6.4-8.2)
[2024-01-22] MEDS: FAMOTIDINE 20 MG/50 ML IVPB 20 MG/50 ML MG IVPB ONE (11:48)
[2024-01-22] MEDS: PALONOSETRON HCL 0.25 MG/5 ML VIAL IVPUSH ONE (12:20)
[2024-01-22] MEDS: DEXAMETHASONE SODIUM PHOSPHATE 10 MG, DIPHENHYDRAMINE 25 MG in SODIUM CHLORIDE 100 ML IVPB ONE (13:04)
[2024-01-22] MEDS: PACLITAXEL 78 MG in SODIUM CHLORIDE 250 ML IVPB ONE (13:50)
[2024-01-22] MEDS: SODIUM CHLORIDE IVPB ONE (14:58)
[2024-01-22] MEDS: CARBOPLATIN IVPB ONE (14:58)
[2024-01-22 15:03] VITALS: RESP 16; TEMP 98.3
[2024-01-22] MEDS: PORTA CATH FLUSH 10 ML IVPUSH PRN (15:34)
[2024-01-22 15:42] VITALS: BP 107/69; PULSE 90
== END 2024-01-22 15:44 | disposition home or self-care (01) ==
LOC: JONCCHEMO 10:19 → J7W 10:20 → JONCCHEMO 15:44
PROVIDERS: ATTEND Internal Medicine Hematology & Oncology
PROC: 3E04305 Introduction of Other Antineoplastic into Central Vein, Percutaneous Approach (ICD-10-PCS; principal; 2024-01-22)
PROC: 3E0437Z Introduction of Electrolytic and Water Balance Substance into Central Vein, Percutaneous Approach (ICD-10-PCS; 2024-01-22)
PROC: 3E043GC Introduction of Other Therapeutic Substance into Central Vein, Percutaneous Approach (ICD-10-PCS; 2024-01-22)
DX: Z51.11 Encounter for antineoplastic chemotherapy (principal); C34.32 Malignant neoplasm of lower lobe, left bronchus or lung; D50.8 Other iron deficiency anemias
CPT/HCPCS: 36415; 80048; 80076; 84153; 85025; 96367; 96375; 96413; 96417; J2469

== ENCOUNTER 2024-01-29 10:16 | Day surgery (SDC) | payer OTHER ==
[2024-01-29 11:06] LABS: BASO % 0.3 % (0-2.0); EOS % 1.2 % (0-4.5); HEMOGLOBIN 11.8 GM/dL (11.7-16.9); LYMPH % 9.5 % (8-40); MCH 29.6 pg (25.7-33.7); MCHC 32.8 g/dl (32.0-35.9); MEAN PLT VOLUME 7.7 fl (7.5-11.1); MONO % 7.1 % (3.8-10.2); NEUT % 81.9 % (42.8-82.8); PLATELET COUNT 152 10^3/uL (134-434); RDW 18.8 % (11.9-15.9); WHITE BLOOD COUNT 4.8 K/mm3 (4.0-10.0)
[2024-01-29 11:20] LABS: CHLORIDE 113 mmol/L (98-107); POTASSIUM 4.1 mmol/L (3.5-5.1); SODIUM 140 mmol/L (136-145)
[2024-01-29 11:22] LABS: CALCIUM 9.1 mg/dL (8.5-10.1)
[2024-01-29 11:23] LABS: ALBUMIN 3.8 g/dl (3.4-5.0); ANION GAP 7 mmol/L (4-13); BLOOD UREA NITROGEN 14.5 mg/dL (7-18); CO2 20 mmol/L (21-32); GLUCOSE,RANDOM 209 mg/dL (74-106)
[2024-01-29 11:26] LABS: BILIRUBIN,DIRECT 0.1 mg/dL (0.0-0.2); CREATININE 1.2 mg/dL (0.55-1.3); SGOT/AST 21 U/L (15-37); SGPT/ALT 25 U/L (13-61)
[2024-01-29 11:27] LABS: BILIRUBIN,TOTAL 0.3 mg/dL (0.2-1)
[2024-01-29 11:29] LABS: ALK PHOS 100 U/L (45-117)
[2024-01-29] MEDS: SODIUM CHLORIDE 250 ML IV ONE (11:45)
[2024-01-29] MEDS: DEXAMETHASONE SODIUM PHOSPHATE 10 MG, DIPHENHYDRAMINE 25 MG in SODIUM CHLORIDE 100 ML IVPB ONE (12:13)
[2024-01-29] MEDS: PALONOSETRON HCL 0.25 MG/5 ML VIAL IVPUSH ONE (12:13)
[2024-01-29] MEDS: FAMOTIDINE 20 MG/50 ML IVPB 20 MG/50 ML MG IVPB ONE (12:58)
[2024-01-29] MEDS: PACLITAXEL 78 MG in SODIUM CHLORIDE 250 ML IVPB ONE (13:29)
[2024-01-29] MEDS: CARBOPLATIN IVPB ONE (14:34)
[2024-01-29] MEDS: SODIUM CHLORIDE IVPB ONE (14:34)
[2024-01-29] MEDS: PORTA CATH FLUSH 10 ML IVPUSH PRN (15:05)
[2024-01-29 15:50] VITALS: BP 109/69; PULSE 100; RESP 16; TEMP 98.3
== END 2024-01-29 15:25 | disposition home or self-care (01) ==
LOC: JONCCHEMO 10:16 → J7W 10:16 → JONCCHEMO 15:25
PROVIDERS: ATTEND Internal Medicine Hematology & Oncology
DX: Z51.11 Encounter for antineoplastic chemotherapy (principal); C34.32 Malignant neoplasm of lower lobe, left bronchus or lung
CPT/HCPCS: 36415; 80048; 80076; 85025; 96367; 96375; 96413; 96417; J2469

== ENCOUNTER 2024-02-05 10:28 | Day surgery (SDC) | payer OTHER ==
[2024-02-05 10:30] LABS: BASO % 0.3 % (0-2.0); EOS % 0.6 % (0-4.5); HEMATOCRIT 37.3 % (35.4-49); HEMOGLOBIN 12.4 GM/dL (11.7-16.9); LYMPH % 11.9 % (8-40); MCH 30.3 pg (25.7-33.7); MCHC 33.3 g/dl (32.0-35.9); MEAN CELL VOLUME 91.1 fl (80-96); MONO % 13.8 % (3.8-10.2); NEUT % 73.4 % (42.8-82.8); PLATELET COUNT 164 10^3/uL (134-434); RBC 4.09 M/mm3 (4.00-5.60); RDW 21.1 % (11.9-15.9)
[2024-02-05] MEDS: SODIUM CHLORIDE 250 ML IV ONE (10:33)
[2024-02-05 10:49] LABS: CHLORIDE 109 mmol/L (98-107); POTASSIUM 4.1 mmol/L (3.5-5.1); SODIUM 139 mmol/L (136-145)
[2024-02-05 10:52] LABS: CALCIUM 9.4 mg/dL (8.5-10.1)
[2024-02-05 10:53] LABS: ANION GAP 7 mmol/L (4-13); BLOOD UREA NITROGEN 18.5 mg/dL (7-18); CO2 24 mmol/L (21-32); GLUCOSE,RANDOM 117 mg/dL (74-106)
[2024-02-05 10:55] LABS: BILIRUBIN,DIRECT 0.1 mg/dL (0.0-0.2)
[2024-02-05 10:56] LABS: BILIRUBIN,TOTAL 0.3 mg/dL (0.2-1); CREATININE 1.2 mg/dL (0.55-1.3); SGOT/AST 23 U/L (15-37); SGPT/ALT 30 U/L (13-61)
[2024-02-05 10:58] LABS: TOT PROT 7.5 g/dl (6.4-8.2)
[2024-02-05 10:59] LABS: ALK PHOS 112 U/L (45-117)
[2024-02-05] MEDS: FAMOTIDINE 20 MG/50 ML IVPB 20 MG/50 ML MG IVPB ONE (11:22)
[2024-02-05 11:42] LABS: ANISOCYTOSIS 2+; MACROCYTOSIS 1+
[2024-02-05] MEDS: PALONOSETRON HCL 0.25 MG/5 ML VIAL IVPUSH ONE (11:45)
[2024-02-05] MEDS: DEXAMETHASONE SODIUM PHOSPHATE 10 MG, DIPHENHYDRAMINE 25 MG in SODIUM CHLORIDE 100 ML IVPB ONE (12:05)
[2024-02-05] MEDS: PACLITAXEL 78 MG in SODIUM CHLORIDE 250 ML IVPB ONE (12:52)
[2024-02-05] MEDS: CARBOPLATIN IVPB ONE (13:56)
[2024-02-05] MEDS: SODIUM CHLORIDE IVPB ONE (13:56)
[2024-02-05 14:11] VITALS: RESP 20; TEMP 98.7
[2024-02-05] MEDS: PORTA CATH FLUSH 10 ML IVPUSH PRN (14:38)
[2024-02-05 15:44] VITALS: BP 111/73; PULSE 83
== END 2024-02-05 14:54 | disposition home or self-care (01) ==
LOC: JONCCHEMO 10:28 → J7W 10:30 → JONCCHEMO 14:54
PROVIDERS: ATTEND Internal Medicine Hematology & Oncology
DX: Z51.11 Encounter for antineoplastic chemotherapy (principal); C34.32 Malignant neoplasm of lower lobe, left bronchus or lung
CPT/HCPCS: 36415; 80048; 80076; 85025; J2469

== ENCOUNTER 2024-02-20 10:55 | Inpatient (IN) | payer OTHER ==
[2024-02-20] MEDS ORDERED: ACETAMINOPHEN 325 MG TABLET (FP) ONE ×2 (12:59→19:49)
[2024-02-20 13:59] LABS: BASO % 0.8 % (0-2.0); EOS % 0.5 % (0-4.5); HEMATOCRIT 38.9 % (35.4-49); HEMOGLOBIN 13.3 GM/dL (11.7-16.9); LYMPH % 20.8 % (8-40); MCH 31.4 pg (25.7-33.7); MCHC 34.2 g/dl (32.0-35.9); MEAN CELL VOLUME 91.7 fl (80-96); MEAN PLT VOLUME 7.4 fl (7.5-11.1); MONO % 17.5 % (3.8-10.2); NEUT % 60.4 % (42.8-82.8); PLATELET COUNT 241 10^3/uL (134-434); RBC 4.24 M/mm3 (4.00-5.60); RDW 22.7 % (11.9-15.9); URINE APPEARANCE CLEAR; URINE BILIRUBIN NEGATIVE (NEGATIVE); URINE COLOR YELLOW; URINE GLUCOSE (UA) NEGATIVE (NEGATIVE); URINE KETONE NEGATIVE (NEGATIVE); URINE LEUK ESTERASE NEGATIVE (NEGATIVE); URINE NITRITE NEGATIVE (NEGATIVE); URINE PROTEIN NEGATIVE (NEGATIVE); URINE UROBILINOGEN 0.2 mg/dL (0.2-1.0); WHITE BLOOD COUNT 5.9 K/mm3 (4.0-10.0)
[2024-02-20] MEDS: SODIUM CHLORIDE 1,000 ML IV STA (13:59)
[2024-02-20] MEDS: ACETAMINOPHEN 325 MG TABLET (FP) PO ONE (13:59)
[2024-02-20 14:11] LABS: ACTIVATED PTT 32.5 SECONDS (25.2-36.5)
[2024-02-20 14:23] LABS: POTASSIUM 3.9 mmol/L (3.5-5.1)
[2024-02-20 14:27] LABS: ALBUMIN 4.4 g/dl (3.4-5.0); BLOOD UREA NITROGEN 16.6 mg/dL (7-18); CALCIUM 10.1 mg/dL (8.5-10.1)
[2024-02-20 14:30] LABS: CREATININE 1.3 mg/dL (0.55-1.3)
[2024-02-20 14:31] LABS: LACTIC ACID 2.1 mmol/L (0.4-2.0)
[2024-02-20 14:32] LABS: BILIRUBIN,TOTAL 0.6 mg/dL (0.2-1); INR 1.06 (0.83-1.09); PROTHROMBIN TIME (PATIENT) 12.2 SEC (9.7-13.0); TOT PROT 8.6 g/dl (6.4-8.2)
[2024-02-20 15:11] LABS: ANISOCYTOSIS 2+; MACROCYTOSIS 1+
[2024-02-20] MEDS ORDERED: CEFEPIME HCL 2 GM VIAL (RESTRICTED TO ID) IVPB SCH (16:15)
[2024-02-20] MEDS ORDERED: VANCOMYCIN 1 GRAM (PRE-DOCKED) 1,000 MG/250 ML BAG IVPB ONE (16:36)
[2024-02-20] MEDS: VANCOMYCIN 1,000 MG in DEXTROSE 5%-WATER - 250 ML IVPB ONE (16:57)
[2024-02-20] MEDS ORDERED: BENZOCAINE 28 GM HEMORRHOIDAL OINTMENT PR ONE (18:38)
[2024-02-20] MEDS ORDERED: CEFEPIME 2 GM/100 ML BAG IVPB ONE (19:12)
[2024-02-20] MEDS ORDERED: MORPHINE SULFATE 2 MG/ML SYRINGE IVPUSH PRN (19:25)
[2024-02-20] MEDS: CEFEPIME 2 GM in DEXTROSE 5%-WATER 100 ML IVPB SCH (19:43)
[2024-02-20] MEDS: ACETAMINOPHEN 325 MG TABLET (FP) PO PRN (19:53)
[2024-02-20 21:07] VITALS: BMI 23.3
[2024-02-20] MEDS: PIPERACILLIN/TAZOB 3.375 GM 3.375 GM in DEXTROSE 5%-WATER - 50 ML IVPB SCH (21:38)
[2024-02-20] MEDS ORDERED: VANCOMYCIN 1,000 MG in DEXTROSE 5%-WATER - 250 ML IVPB SCH (22:00)
[2024-02-20] MEDS: IBUPROFEN 600 MG TABLET (FP) PO ONE (23:30)
[2024-02-21] MEDS ORDERED: PIPERACILLIN/TAZOB 3.375 GM 3.375 GM in DEXTROSE 5%-WATER - 50 ML IVPB SCH (02:00)
[2024-02-21] MEDS: VANCOMYCIN 1 GRAM (PRE-DOCKED) 1,000 MG/250 ML BAG IVPB ONE (06:25)
[2024-02-21 08:52] LABS: BASO % 0.5 % (0-2.0); EOS % 1.2 % (0-4.5); HEMATOCRIT 37.9 % (35.4-49); LYMPH % 18.1 % (8-40); MCH 31.2 pg (25.7-33.7); MCHC 34.3 g/dl (32.0-35.9); MEAN CELL VOLUME 91.2 fl (80-96); MEAN PLT VOLUME 7.5 fl (7.5-11.1); NEUT % 61.2 % (42.8-82.8); PLATELET COUNT 206 10^3/uL (134-434); RBC 4.15 M/mm3 (4.00-5.60); RDW 22.5 % (11.9-15.9); WHITE BLOOD COUNT 5.5 K/mm3 (4.0-10.0)
[2024-02-21 09:19] LABS: POTASSIUM 4.1 mmol/L (3.5-5.1)
[2024-02-21 09:26] LABS: BLOOD UREA NITROGEN 17.4 mg/dL (7-18)
[2024-02-21 09:29] LABS: CREATININE 1.3 mg/dL (0.55-1.3)
[2024-02-21 09:31] LABS: BILIRUBIN,TOTAL 0.6 mg/dL (0.2-1); TOT PROT 7.6 g/dl (6.4-8.2)
[2024-02-21 09:32] LABS: ALBUMIN 3.5 g/dl (3.4-5.0)
[2024-02-21] MEDS: amLODIPine BESYLATE 5 MG TABLET (FP) PO SCH (09:32)
[2024-02-21] MEDS: TAMSULOSIN HCL 0.4 MG CAP PO SCH (09:32)
[2024-02-21] MEDS: ENOXAPARIN NA (PORCINE) 40 MG/0.4 ML DISP.SYRIN SQ SCH (09:34)
[2024-02-21] MEDS: PIPERACILLIN/TAZOB 4.5 GM 4.5 GM in DEXTROSE 5%-WATER 100 ML IVPB SCH (17:34)
[2024-02-22 08:46] LABS: HEMATOCRIT 34.5 % (35.4-49); HEMOGLOBIN 11.8 GM/dL (11.7-16.9); MCHC 34.2 g/dl (32.0-35.9); MEAN CELL VOLUME 90.7 fl (80-96); MEAN PLT VOLUME 7.8 fl (7.5-11.1); PLATELET COUNT 214 10^3/uL (134-434); RDW 22.4 % (11.9-15.9); WHITE BLOOD COUNT 6.1 K/mm3 (4.0-10.0)
[2024-02-22 09:03] LABS: POTASSIUM 3.7 mmol/L (3.5-5.1)
[2024-02-22 09:06] LABS: BLOOD UREA NITROGEN 19.2 mg/dL (7-18); CALCIUM 9.2 mg/dL (8.5-10.1)
[2024-02-22 09:07] LABS: ALBUMIN 3.3 g/dl (3.4-5.0)
[2024-02-22 09:10] LABS: CREATININE 1.5 mg/dL (0.55-1.3)
[2024-02-22 09:11] LABS: BILIRUBIN,TOTAL 0.6 mg/dL (0.2-1)
[2024-02-22 10:36] LABS: ANISOCYTOSIS 0; MACROCYTOSIS 0
[2024-02-23 08:21] LABS: HEMOGLOBIN 11.2 GM/dL (11.7-16.9); MCH 31.1 pg (25.7-33.7); MEAN CELL VOLUME 91.5 fl (80-96); MEAN PLT VOLUME 7.6 fl (7.5-11.1); PLATELET COUNT 206 10^3/uL (134-434); RBC 3.61 M/mm3 (4.00-5.60); WHITE BLOOD COUNT 5.5 K/mm3 (4.0-10.0)
[2024-02-23 08:27] LABS: POTASSIUM 3.5 mmol/L (3.5-5.1)
[2024-02-23 08:29] LABS: CALCIUM 8.6 mg/dL (8.5-10.1)
[2024-02-23 08:30] LABS: ALBUMIN 2.9 g/dl (3.4-5.0); BLOOD UREA NITROGEN 18.4 mg/dL (7-18); MAGNESIUM 1.9 mg/dL (1.8-2.4)
[2024-02-23 08:33] LABS: CREATININE 1.2 mg/dL (0.55-1.3); PHOSPHOROUS 3.8 mg/dL (2.5-4.9)
[2024-02-23 08:35] LABS: BILIRUBIN,TOTAL 0.5 mg/dL (0.2-1); TOT PROT 6.6 g/dl (6.4-8.2)
[2024-02-23 10:23] LABS: ANISOCYTOSIS 0; HELMET CELLS 0; HOWELL-JOLLY BODIES 0; MACROCYTOSIS 0; OVALOCYTE 0; ROULEAU 0; SICKELED CELLS 0; TARGET CELLS 0; TEAR DROP CELLS 0; TOXIC GRANULATION 0
[2024-02-24] MEDS: ACETAMINOPHEN/CAFFEINE/BUTALBITAL 1 TAB PO ONE (04:00)
[2024-02-24] MEDS: SODIUM CHLORIDE 1,000 ML IV STA (04:01)
[2024-02-24 09:12] LABS: HEMATOCRIT 35.4 % (35.4-49); MCH 30.9 pg (25.7-33.7); MEAN PLT VOLUME 7.9 fl (7.5-11.1); PLATELET COUNT 228 10^3/uL (134-434); RBC 3.89 M/mm3 (4.00-5.60); RDW 21.6 % (11.9-15.9); WHITE BLOOD COUNT 4.4 K/mm3 (4.0-10.0)
[2024-02-24 09:38] LABS: BLOOD UREA NITROGEN 12.1 mg/dL (7-18)
[2024-02-24 09:43] LABS: CREATININE 1.1 mg/dL (0.55-1.3)
[2024-02-24 09:52] LABS: ANISOCYTOSIS 2+; MACROCYTOSIS 0
[2024-02-25] MEDS: SUMAtriptan SUCCINATE 25 MG TABLET PO PRN (12:04)
[2024-02-26] MEDS: IBUPROFEN 600 MG TABLET (FP) PO ONE ×2 (06:07→07:45)
[2024-02-26] MEDS ORDERED: ONDANSETRON 4 MG/2 ML VIAL IVPUSH PRN (08:06)
[2024-02-26 09:46] LABS: BASO % 0.7 % (0-2.0); EOS % 3.2 % (0-4.5); HEMATOCRIT 34.2 % (35.4-49); HEMOGLOBIN 11.9 GM/dL (11.7-16.9); LYMPH % 21.2 % (8-40); MCH 31.2 pg (25.7-33.7); MCHC 34.9 g/dl (32.0-35.9); MEAN CELL VOLUME 89.6 fl (80-96); MEAN PLT VOLUME 7.9 fl (7.5-11.1); MONO % 13.9 % (3.8-10.2); PLATELET COUNT 264 10^3/uL (134-434); RBC 3.82 M/mm3 (4.00-5.60); RDW 21.7 % (11.9-15.9); WHITE BLOOD COUNT 7.8 K/mm3 (4.0-10.0)
[2024-02-26 10:01] LABS: POTASSIUM 3.9 mmol/L (3.5-5.1)
[2024-02-26 10:06] LABS: CALCIUM 9.5 mg/dL (8.5-10.1)
[2024-02-26 10:07] LABS: ALBUMIN 3.3 g/dl (3.4-5.0); BLOOD UREA NITROGEN 12.6 mg/dL (7-18); MAGNESIUM 2.1 mg/dL (1.8-2.4)
[2024-02-26 10:10] LABS: CREATININE 1.1 mg/dL (0.55-1.3); PHOSPHOROUS 3.5 mg/dL (2.5-4.9)
[2024-02-26 10:12] LABS: TOT PROT 7.3 g/dl (6.4-8.2)
[2024-02-26 10:13] LABS: BILIRUBIN,TOTAL 0.5 mg/dL (0.2-1)
[2024-02-26] MEDS: FLUTICASONE/UMECLIDIN/VILANTER(200-62.5-25 TRELEGY ELLIPTA) INAHLER IH SCH (18:31)
[2024-02-27] MEDS: guaiFENesin/D-METHORPHAN TAB.ER.12H PO SCH (17:58)
[2024-02-28 09:26] VITALS: BP 106/62; PULSE 98; RESP 18; TEMP 98.9
== END 2024-02-28 15:48 | disposition home or self-care (01) | DRG 500 ==
LOC: JER 10:55 → JERBED 19:04 → J6S 20:23
PROVIDERS: ADMIT Internal Medicine; ATTEND Internal Medicine
DX: C61 Malignant neoplasm of prostate (principal); R50.9 Fever, unspecified; R00.0 Tachycardia, unspecified; I10 Essential (primary) hypertension; C79.51 Secondary malignant neoplasm of bone; C78.02 Secondary malignant neoplasm of left lung; M54.50 Low back pain, unspecified; N40.0 Benign prostatic hyperplasia without lower urinary tract symptoms; K80.80 Other cholelithiasis without obstruction; R51.9 Headache, unspecified; J70.0 Acute pulmonary manifestations due to radiation; J44.9 Chronic obstructive pulmonary disease, unspecified
CPT/HCPCS: 0241U-QW; 36415; 70450-TC; 70553-TC; 71046-TC-FY; 71250-TC; 74176-TC; 76705-TC; 80048; 80053; 81003; 82533; 83605; 83615; 83735; 84100; 84153; 84443; 85025; 85610; 85651; 85730; 86140; 87040; 87086; 87633; 93005; 93010; 93970-TC; 97116-GP; 97161-GP; 99285-25

== ENCOUNTER 2024-03-06 15:01 | Inpatient (IN) | payer OTHER ==
[2024-03-06 17:44] LABS: HEMATOCRIT 37.5 % (35.4-49); HEMOGLOBIN 12.5 GM/dL (11.7-16.9); MCH 30.7 pg (25.7-33.7); MCHC 33.4 g/dl (32.0-35.9); MEAN CELL VOLUME 91.8 fl (80-96); MEAN PLT VOLUME 7.5 fl (7.5-11.1); PLATELET COUNT 376 10^3/uL (134-434); RBC 4.08 M/mm3 (4.00-5.60); RDW 21.4 % (11.9-15.9); WHITE BLOOD COUNT 12.4 K/mm3 (4.0-10.0)
[2024-03-06 18:09] LABS: CALCIUM 9.7 mg/dL (8.5-10.1)
[2024-03-06 18:10] LABS: ALBUMIN 3.4 g/dl (3.4-5.0); BLOOD UREA NITROGEN 21.3 mg/dL (7-18)
[2024-03-06 18:13] LABS: CREATININE 1.5 mg/dL (0.55-1.3)
[2024-03-06 18:15] LABS: BILIRUBIN,TOTAL 0.6 mg/dL (0.2-1); TOT PROT 7.8 g/dl (6.4-8.2)
[2024-03-06] MEDS: SODIUM CHLORIDE 1,000 ML IV STA (18:45)
[2024-03-06 18:59] LABS: ANISOCYTOSIS 1+; MACROCYTOSIS 1+; PLATELET ESTIMATE NORMAL
[2024-03-06 19:35] LABS: CHLORIDE 109 mmol/L (98-107); SODIUM 136 mmol/L (136-145)
[2024-03-06 19:41] LABS: ALBUMIN 3.4 g/dl (3.4-5.0); ANION GAP 6 mmol/L (4-13); BLOOD UREA NITROGEN 19.7 mg/dL (7-18); CALCIUM 9.5 mg/dL (8.5-10.1); CO2 21 mmol/L (21-32); GLUCOSE,RANDOM 104 mg/dL (74-106); POTASSIUM 6.6 mmol/L (3.5-5.1)
[2024-03-06 19:43] LABS: SGPT/ALT 36 U/L (13-61)
[2024-03-06 19:44] LABS: CREATININE 1.4 mg/dL (0.55-1.3); SGOT/AST 83 U/L (15-37)
[2024-03-06 19:45] LABS: BILIRUBIN,TOTAL 0.5 mg/dL (0.2-1); TOT PROT 7.9 g/dl (6.4-8.2)
[2024-03-06 19:46] LABS: ALK PHOS 140 U/L (45-117)
[2024-03-06] MEDS ORDERED: PIPERACILLIN/TAZOB 3.375 GM 3.375 GM/50 ML BAG IVPB ONE (20:33)
[2024-03-06] MEDS ORDERED: VANCOMYCIN/WATER 1250 MG 1,250 MG/250 ML BAG IVPB ONE (20:33)
[2024-03-06] MEDS: PIPERACILLIN/TAZOB 3.375 GM 3.375 GM in DEXTROSE 5%-WATER - 50 ML IVPB ONE (20:35)
[2024-03-06] MEDS: VANCOMYCIN/WATER 1250 MG 1,250 MG/250 ML BAG IVPB ONE (20:35)
[2024-03-06 22:18] LABS: POTASSIUM 4.2 mmol/L (3.5-5.1)
[2024-03-06 22:20] LABS: BLOOD UREA NITROGEN 18.3 mg/dL (7-18); CALCIUM 9.3 mg/dL (8.5-10.1)
[2024-03-06 22:24] LABS: CREATININE 1.3 mg/dL (0.55-1.3)
[2024-03-07 04:00] VITALS: RESP 18; BMI 21.0
[2024-03-07] MEDS ORDERED: ALBUTEROL SO4 2.5/IPRATROPIUM 0.5 INH SOL 3 ML VIAL.NEB. NEB PRN (04:37)
[2024-03-07] MEDS: methylPREDNISolone NA SUCC 40 MG/1 ML VIAL IVPUSH SCH (06:17)
[2024-03-07] MEDS: FINASTERIDE 5 MG TABLET (FP) PO SCH (09:19)
[2024-03-07] MEDS: metoPROLOL SUCCINATE 25 MG TAB.SR.24H (FP) PO SCH (09:19)
[2024-03-07] MEDS: amLODIPine BESYLATE 5 MG TABLET (FP) PO SCH (09:20)
[2024-03-07] MEDS: BICALUTAMIDE 50 MG TABLET (FP) PO SCH (09:20)
[2024-03-07] MEDS: TAMSULOSIN HCL 0.4 MG CAP PO SCH (09:20)
[2024-03-07] MEDS: FLUTICASONE/UMECLIDIN/VILANTER(200-62.5-25 TRELEGY ELLIPTA) INAHLER IH SCH (09:20)
[2024-03-07] MEDS: ACETAMINOPHEN 325 MG TABLET (FP) PO PRN (09:46)
[2024-03-07] MEDS ORDERED: ENOXAPARIN NA (PORCINE) 40 MG/0.4 ML DISP.SYRIN SQ SCH (10:00)
[2024-03-07 10:28] LABS: EOS % 2.9 % (0-4.5); HEMATOCRIT 37.6 % (35.4-49); HEMOGLOBIN 12.6 GM/dL (11.7-16.9); MCH 31.2 pg (25.7-33.7); MCHC 33.6 g/dl (32.0-35.9); MEAN CELL VOLUME 92.8 fl (80-96); MEAN PLT VOLUME 7.7 fl (7.5-11.1); MONO % 2.8 % (3.8-10.2); NEUT % 76.3 % (42.8-82.8); PLATELET COUNT 346 10^3/uL (134-434); RBC 4.05 M/mm3 (4.00-5.60); RDW 21.1 % (11.9-15.9); WHITE BLOOD COUNT 9.7 K/mm3 (4.0-10.0)
[2024-03-07 10:51] LABS: POTASSIUM 4.5 mmol/L (3.5-5.1)
[2024-03-07 10:55] LABS: BLOOD UREA NITROGEN 17.4 mg/dL (7-18)
[2024-03-07 10:58] LABS: CALCIUM 10.3 mg/dL (8.5-10.1)
[2024-03-07 10:59] LABS: CREATININE 1.5 mg/dL (0.55-1.3); PHOSPHOROUS 3.3 mg/dL (2.5-4.9)
[2024-03-07] MEDS: AZITHROMYCIN IVPB 500 MG/250 ML BAG IVPB SCH (14:00)
[2024-03-07] MEDS: SODIUM CHLORIDE 1,000 ML IV SCH (14:00)
[2024-03-07] MEDS: PANTOPRAZOLE SODIUM 40 MG VIAL IVPUSH SCH (14:01)
[2024-03-07] MEDS: HEPARIN NA (PORCINE) 5,000 UNITS/ML 1ML VIAL SQ SCH (14:01)
[2024-03-08] MEDS: PANTOPRAZOLE 40 MG TABLET PO SCH (09:32)
[2024-03-08 10:22] LABS: HEMOGLOBIN 12.4 GM/dL (11.7-16.9); MCHC 33.5 g/dl (32.0-35.9); MEAN CELL VOLUME 92.5 fl (80-96); MEAN PLT VOLUME 7.9 fl (7.5-11.1); PLATELET COUNT 389 10^3/uL (134-434); RDW 21.2 % (11.9-15.9); WHITE BLOOD COUNT 14.5 K/mm3 (4.0-10.0)
[2024-03-08 10:38] LABS: POTASSIUM 4.4 mmol/L (3.5-5.1)
[2024-03-08 10:45] LABS: ALBUMIN 3.3 g/dl (3.4-5.0); CALCIUM 9.6 mg/dL (8.5-10.1)
[2024-03-08 10:46] LABS: BLOOD UREA NITROGEN 18.7 mg/dL (7-18)
[2024-03-08 10:47] LABS: CREATININE 1.1 mg/dL (0.55-1.3)
[2024-03-08 10:49] LABS: BILIRUBIN,TOTAL 0.4 mg/dL (0.2-1); TOT PROT 7.6 g/dl (6.4-8.2)
[2024-03-08 11:29] LABS: ANISOCYTOSIS 2+; MACROCYTOSIS 0
[2024-03-08 15:59] VITALS: BP 116/63; PULSE 88; TEMP 98.7
[2024-03-11 15:09] LABS: PARATHYROID HORM INTACT 17 pg/mL (15-65)
== END 2024-03-08 18:18 | disposition home or self-care (01) | DRG 140 ==
LOC: JER 15:01 → JERBED 21:31 → J8W 23:53 → OBSVTOIN 03-07 14:02
PROVIDERS: ADMIT Internal Medicine
DX: J44.1 Chronic obstructive pulmonary disease with (acute) exacerbation (principal); N17.9 Acute kidney failure, unspecified; C34.11 Malignant neoplasm of upper lobe, right bronchus or lung; C34.32 Malignant neoplasm of lower lobe, left bronchus or lung; R04.2 Hemoptysis; C61 Malignant neoplasm of prostate; I10 Essential (primary) hypertension; J44.0 Chronic obstructive pulmonary disease with (acute) lower respiratory infection
CPT/HCPCS: 0241U-QW; 36415; 71046-TC-FY; 71250-TC; 80048; 80053; 82306; 82310; 82330; 83036; 83735; 83880; 83970; 84100; 84153; 84439; 84443; 84484; 85025; 93005; 93010; 99285-25; G0378; J1644

== ENCOUNTER 2024-03-12 19:13 | Emergency (ER) | payer OTHER ==
[2024-03-12 19:20] VITALS: RESP 18; TEMP 98; BMI 21.2
[2024-03-12] MEDS ORDERED: ALBUTEROL SO4 2.5/IPRATROPIUM 0.5 INH SOL 3 ML VIAL.NEB. NEB ONE (20:10)
[2024-03-12] MEDS: ALBUTEROL SO4 2.5/IPRATROPIUM 0.5 INH SOL 3 ML VIAL.NEB. NEB SCH (20:15)
[2024-03-12 22:33] VITALS: BP 138/82; PULSE 90
== END 2024-03-12 22:33 | disposition home or self-care (01) ==
LOC: JER 19:13
PROC: 3E0F7GC Introduction of Other Therapeutic Substance into Respiratory Tract, Via Natural or Artificial Opening (ICD-10-PCS; principal; 2024-03-12)
DX: R09.89 Other specified symptoms and signs involving the circulatory and respiratory systems (principal); R05.9 Cough, unspecified
CPT/HCPCS: 99283-25

== ENCOUNTER 2024-03-13 02:02 | Emergency (ER) | payer OTHER ==
[2024-03-13 02:07] VITALS: BMI 21.2
[2024-03-13] MEDS: ALBUTEROL SO4 2.5/IPRATROPIUM 0.5 INH SOL 3 ML VIAL.NEB. NEB SCH ×2 (03:10→08:15)
[2024-03-13 03:13] LABS: VENOUS O2 SATURATION 48.7 % (70-80); VENOUS PCO2 41.4 mmHg (38-52); VENOUS PH 7.351 (7.310-7.410)
[2024-03-13 03:14] LABS: HEMATOCRIT 35.9 % (35.4-49); MCHC 33.4 g/dl (32.0-35.9); MEAN PLT VOLUME 7.9 fl (7.5-11.1); PLATELET COUNT 276 10^3/uL (134-434); RBC 3.86 M/mm3 (4.00-5.60); RDW 21.1 % (11.9-15.9); WHITE BLOOD COUNT 15.8 K/mm3 (4.0-10.0)
[2024-03-13 03:27] LABS: INR 0.98 (0.83-1.09); PROTHROMBIN TIME (PATIENT) 11.1 SEC (9.7-13.0)
[2024-03-13 03:30] LABS: ACTIVATED PTT 25.7 SECONDS (25.2-36.5)
[2024-03-13 03:38] LABS: POTASSIUM 4.3 mmol/L (3.5-5.1)
[2024-03-13 03:40] LABS: ALBUMIN 3.5 g/dl (3.4-5.0); CALCIUM 9.2 mg/dL (8.5-10.1)
[2024-03-13 03:44] LABS: CREATININE 1.4 mg/dL (0.55-1.3)
[2024-03-13 03:45] LABS: BILIRUBIN,TOTAL 0.4 mg/dL (0.2-1); TOT PROT 7.4 g/dl (6.4-8.2)
[2024-03-13 05:58] LABS: ANISOCYTOSIS 3+; MACROCYTOSIS 3+; ROULEAU 1+
[2024-03-13] MEDS: LACTATED RINGERS SOLUTION 1000 ML INFUS.BAG IV ONE (08:15)
[2024-03-13] MEDS ORDERED: ALBUTEROL SO4 2.5/IPRATROPIUM 0.5 INH SOL 3 ML VIAL.NEB. NEB ONE (08:37)
[2024-03-13 09:02] VITALS: BP 111/71; PULSE 101; RESP 19; TEMP 98.3
== END 2024-03-13 09:13 | disposition home or self-care (01) ==
LOC: JER 02:02
PROC: 3E0F7GC Introduction of Other Therapeutic Substance into Respiratory Tract, Via Natural or Artificial Opening (ICD-10-PCS; principal; 2024-03-13)
PROC: 3E0F7GC Introduction of Other Therapeutic Substance into Respiratory Tract, Via Natural or Artificial Opening (ICD-10-PCS; 2024-03-13)
DX: R06.02 Shortness of breath (principal); R05.9 Cough, unspecified
CPT/HCPCS: 36415; 71275-TC; 80053; 82803; 84484; 85025; 85610; 85730; 93005; 93010; 99285-25; Q9967

== ENCOUNTER 2024-03-17 22:25 | Inpatient (IN) | payer OTHER ==
[2024-03-17 22:36] VITALS: BMI 21.4
[2024-03-17] MEDS ORDERED: ACETAMINOPHEN INJECTION 100 ML IVPB ONE (23:07)
[2024-03-17] MEDS: ACETAMINOPHEN 1000 MG/100 ML BAG IVPB ONE (23:25)
[2024-03-17] MEDS: SODIUM CHLORIDE 0.9% 500 ML INFUS.BAG IV ONE (23:25)
[2024-03-17 23:28] LABS: VENOUS BASE EXCESS -0.9 mmol/L (-2-2); VENOUS O2 SATURATION 27.6 % (70-80); VENOUS PCO2 35.6 mmHg (38-52); VENOUS PH 7.427 (7.310-7.410)
[2024-03-17 23:35] LABS: INR 1.06 (0.83-1.09)
[2024-03-17 23:48] LABS: ALBUMIN 3.5 g/dl (3.4-5.0); BLOOD UREA NITROGEN 15.8 mg/dL (7-18)
[2024-03-17 23:51] LABS: BASO % 0.3 % (0-2.0); CREATININE 1.2 mg/dL (0.55-1.3); EOS % 6.4 % (0-4.5); HEMATOCRIT 39.5 % (35.4-49); HEMOGLOBIN 13.3 GM/dL (11.7-16.9); LYMPH % 4.2 % (8-40); MCH 31.8 pg (25.7-33.7); MCHC 33.6 g/dl (32.0-35.9); MEAN CELL VOLUME 94.7 fl (80-96); MEAN PLT VOLUME 8.6 fl (7.5-11.1); MONO % 6.4 % (3.8-10.2); NEUT % 82.7 % (42.8-82.8); PLATELET COUNT 187 10^3/uL (134-434); RBC 4.17 M/mm3 (4.00-5.60); RDW 20.8 % (11.9-15.9); WHITE BLOOD COUNT 14.3 K/mm3 (4.0-10.0)
[2024-03-17 23:53] LABS: BILIRUBIN,TOTAL 0.7 mg/dL (0.2-1); TOT PROT 7.4 g/dl (6.4-8.2)
[2024-03-18 01:11] LABS: PH,URINE 5.5 (5.0-8.0); URINE APPEARANCE CLEAR; URINE BILIRUBIN NEGATIVE (NEGATIVE); URINE COLOR YELLOW; URINE GLUCOSE (UA) NEGATIVE (NEGATIVE); URINE KETONE NEGATIVE (NEGATIVE); URINE LEUK ESTERASE NEGATIVE (NEGATIVE); URINE NITRITE NEGATIVE (NEGATIVE); URINE PROTEIN NEGATIVE (NEGATIVE); URINE UROBILINOGEN 0.2 mg/dL (0.2-1.0)
[2024-03-18] MEDS ORDERED: AZITHROMYCIN IVPB 500 MG/250 ML BAG IVPB ONE (05:37)
[2024-03-18] MEDS ORDERED: PIPERACILLIN/TAZOB 4.5 GM 4.5 GM/100 ML BAG IVPB ONE ×2 (05:37→11:32)
[2024-03-18] MEDS: PIPERACILLIN/TAZOB 4.5 GM 4.5 GM in DEXTROSE 5%-WATER 100 ML IVPB ONE (05:40)
[2024-03-18] MEDS: AZITHROMYCIN IVPB 500 MG/250 ML BAG IVPB SCH (06:37)
[2024-03-18 06:42] LABS: BASO % 0.1 % (0-2.0); EOS % 4.2 % (0-4.5); HEMATOCRIT 39.9 % (35.4-49); HEMOGLOBIN 13.8 GM/dL (11.7-16.9); LYMPH % 6.9 % (8-40); MCH 32.7 pg (25.7-33.7); MCHC 34.5 g/dl (32.0-35.9); MEAN CELL VOLUME 94.9 fl (80-96); MEAN PLT VOLUME 8.3 fl (7.5-11.1); MONO % 5.7 % (3.8-10.2); NEUT % 83.1 % (42.8-82.8); PLATELET COUNT 175 10^3/uL (134-434); RDW 20.6 % (11.9-15.9); WHITE BLOOD COUNT 12.5 K/mm3 (4.0-10.0)
[2024-03-18 06:45] LABS: POTASSIUM 4.4 mmol/L (3.5-5.1)
[2024-03-18 06:47] LABS: CALCIUM 8.9 mg/dL (8.5-10.1)
[2024-03-18 06:48] LABS: ALBUMIN 3.3 g/dl (3.4-5.0); BLOOD UREA NITROGEN 14.1 mg/dL (7-18); MAGNESIUM 1.9 mg/dL (1.8-2.4)
[2024-03-18 06:51] LABS: CREATININE 1.2 mg/dL (0.55-1.3); PHOSPHOROUS 3.6 mg/dL (2.5-4.9)
[2024-03-18 06:53] LABS: BILIRUBIN,TOTAL 0.8 mg/dL (0.2-1)
[2024-03-18] MEDS: ALBUTEROL SO4 2.5/IPRATROPIUM 0.5 INH SOL 3 ML VIAL.NEB. NEB SCH (08:50)
[2024-03-18] MEDS ORDERED: ALBUTEROL SO4 2.5/IPRATROPIUM 0.5 INH SOL 3 ML VIAL.NEB. NEB ONE ×2 (08:50→12:13)
[2024-03-18] MEDS ORDERED: ENOXAPARIN NA (PORCINE) 40 MG/0.4 ML DISP.SYRIN SQ ONE (08:59)
[2024-03-18] MEDS ORDERED: methylPREDNISolone NA SUCC 40 MG/1 ML VIAL ONE (08:59)
[2024-03-18] MEDS ORDERED: ACETAMINOPHEN INJECTION 100 ML IVPB ONE (09:02)
[2024-03-18] MEDS: ACETAMINOPHEN 1000 MG/100 ML BAG IVPB PRN (09:05)
[2024-03-18] MEDS: methylPREDNISolone NA SUCC 40 MG/1 ML VIAL IVPUSH SCH (09:21)
[2024-03-18] MEDS: ENOXAPARIN NA (PORCINE) 40 MG/0.4 ML DISP.SYRIN SQ SCH (09:21)
[2024-03-18] MEDS: BUDESONIDE/FORMETEROL FUMARATE 80/4.5 mcg INHALER IH SCH (10:56)
[2024-03-18] MEDS: PIPERACILLIN/TAZOB 4.5 GM 4.5 GM in DEXTROSE 5%-WATER 100 ML IVPB SCH ×2 (11:49→18:12)
[2024-03-19 08:22] LABS: HEMOGLOBIN 12.1 GM/dL (11.7-16.9); MCHC 34.4 g/dl (32.0-35.9); MEAN PLT VOLUME 8.4 fl (7.5-11.1); PLATELET COUNT 173 10^3/uL (134-434); RBC 3.77 M/mm3 (4.00-5.60); RDW 20.7 % (11.9-15.9); WHITE BLOOD COUNT 16.8 K/mm3 (4.0-10.0)
[2024-03-19 08:42] LABS: POTASSIUM 3.8 mmol/L (3.5-5.1)
[2024-03-19 08:44] LABS: CALCIUM 8.9 mg/dL (8.5-10.1)
[2024-03-19 08:45] LABS: BLOOD UREA NITROGEN 16.9 mg/dL (7-18)
[2024-03-19 08:48] LABS: BILIRUBIN,DIRECT 0.2 mg/dL (0.0-0.2); CREATININE 1.2 mg/dL (0.55-1.3); PHOSPHOROUS 3.5 mg/dL (2.5-4.9)
[2024-03-19 08:50] LABS: BILIRUBIN,TOTAL 0.5 mg/dL (0.2-1); TOT PROT 6.7 g/dl (6.4-8.2)
[2024-03-19] MEDS ORDERED: amLODIPine BESYLATE 5 MG TABLET (FP) PO SCH (10:00)
[2024-03-19] MEDS: MULTIVITAMINS THER W-MINERALS COMBO TABLET (FP) PO SCH (10:02)
[2024-03-19] MEDS: PIPERACILLIN/TAZOB 4.5 GM 4.5 GM in DEXTROSE 5%-WATER 100 ML IVPB SCH (10:02)
[2024-03-19] MEDS: FINASTERIDE 5 MG TABLET (FP) PO SCH (10:03)
[2024-03-19] MEDS: TAMSULOSIN HCL 0.4 MG CAP PO SCH (10:03)
[2024-03-19] MEDS: CYANOCOBALAMIN 1,000 MCG TABLET (FP) PO SCH (10:03)
[2024-03-19] MEDS: metoPROLOL SUCCINATE 25 MG TAB.SR.24H (FP) PO SCH (10:03)
[2024-03-19] MEDS: BICALUTAMIDE 50 MG TABLET (FP) PO SCH (10:23)
[2024-03-19] MEDS ORDERED: SODIUM CHLORIDE FOR INHALATION 3 ML VIAL.NEB IH PRN (12:45)
[2024-03-20] MEDS: PIPERACILLIN/TAZOB 4.5 GM 4.5 GM in DEXTROSE 5%-WATER 100 ML IVPB SCH (02:11)
[2024-03-20] MEDS: AZITHROMYCIN IVPB 500 MG/250 ML BAG IVPB SCH (06:48)
[2024-03-20] MEDS: ALBUTEROL SO4 2.5/IPRATROPIUM 0.5 INH SOL 3 ML VIAL.NEB. NEB SCH (07:20)
[2024-03-20] MEDS: TAMSULOSIN HCL 0.4 MG CAP PO SCH (09:25)
[2024-03-20] MEDS: CYANOCOBALAMIN 1,000 MCG TABLET (FP) PO SCH (09:26)
[2024-03-20] MEDS: MULTIVITAMINS THER W-MINERALS COMBO TABLET (FP) PO SCH (09:26)
[2024-03-20] MEDS: metoPROLOL SUCCINATE 25 MG TAB.SR.24H (FP) PO SCH (09:26)
[2024-03-20] MEDS: predniSONE 20 MG TABLET (UD) PO SCH (09:26)
[2024-03-20] MEDS: FINASTERIDE 5 MG TABLET (FP) PO SCH (09:26)
[2024-03-20] MEDS: ENOXAPARIN NA (PORCINE) 40 MG/0.4 ML DISP.SYRIN SQ SCH (09:27)
[2024-03-20] MEDS: BICALUTAMIDE 50 MG TABLET (FP) PO SCH (09:31)
[2024-03-20 10:16] LABS: HEMATOCRIT 34.3 % (35.4-49); HEMOGLOBIN 11.6 GM/dL (11.7-16.9); MCH 31.9 pg (25.7-33.7); MCHC 33.7 g/dl (32.0-35.9); MEAN CELL VOLUME 94.5 fl (80-96); PLATELET COUNT 172 10^3/uL (134-434); RBC 3.63 M/mm3 (4.00-5.60); RDW 20.5 % (11.9-15.9); WHITE BLOOD COUNT 16.4 K/mm3 (4.0-10.0)
[2024-03-20 10:34] LABS: POTASSIUM 4.2 mmol/L (3.5-5.1)
[2024-03-20 10:42] LABS: BLOOD UREA NITROGEN 14.2 mg/dL (7-18); CALCIUM 8.9 mg/dL (8.5-10.1); MAGNESIUM 2.1 mg/dL (1.8-2.4)
[2024-03-20 10:45] LABS: CREATININE 1.1 mg/dL (0.55-1.3); PHOSPHOROUS 3.1 mg/dL (2.5-4.9)
[2024-03-20] MEDS: BUDESONIDE/FORMETEROL FUMARATE 80/4.5 mcg INHALER IH SCH (12:03)
[2024-03-21] MEDS: LIDOCAINE 5% TOPICAL PATCH TP SCH (11:31)
[2024-03-21] MEDS: ACETAMINOPHEN 325 MG TABLET (FP) PO ONE (11:31)
[2024-03-21 12:37] LABS: POTASSIUM 3.4 mmol/L (3.5-5.1)
[2024-03-21 12:41] LABS: CALCIUM 9.5 mg/dL (8.5-10.1)
[2024-03-21 12:43] LABS: BLOOD UREA NITROGEN 14.6 mg/dL (7-18); MAGNESIUM 2.2 mg/dL (1.8-2.4)
[2024-03-21 12:45] LABS: CREATININE 1.2 mg/dL (0.55-1.3)
[2024-03-21 12:46] LABS: BILIRUBIN,TOTAL 0.6 mg/dL (0.2-1)
[2024-03-21 12:47] LABS: BASO % 0.1 % (0-2.0); EOS % 2.4 % (0-4.5); HEMATOCRIT 32.9 % (35.4-49); LYMPH % 4.8 % (8-40); MCH 31.4 pg (25.7-33.7); MCHC 33.4 g/dl (32.0-35.9); MEAN PLT VOLUME 8.6 fl (7.5-11.1); MONO % 9.4 % (3.8-10.2); NEUT % 83.3 % (42.8-82.8); PLATELET COUNT 189 10^3/uL (134-434); RDW 20.4 % (11.9-15.9); TOT PROT 6.5 g/dl (6.4-8.2); WHITE BLOOD COUNT 17.4 K/mm3 (4.0-10.0)
[2024-03-21] MEDS: POTASSIUM CHLORIDE ORAL LIQUID 20 MEQ/15 ML PO ONE (13:50)
[2024-03-21] MEDS: LIDOCAINE PATCH REMOVAL MC SCH (23:14)
[2024-03-22] MEDS: predniSONE 10 MG TABLET (UD) PO SCH (09:27)
[2024-03-22 09:38] LABS: HEMATOCRIT 34.2 % (35.4-49); HEMOGLOBIN 11.3 GM/dL (11.7-16.9); MCH 31.6 pg (25.7-33.7); MEAN CELL VOLUME 95.7 fl (80-96); MEAN PLT VOLUME 8.6 fl (7.5-11.1); PLATELET COUNT 187 10^3/uL (134-434); RBC 3.57 M/mm3 (4.00-5.60); RDW 20.1 % (11.9-15.9); WHITE BLOOD COUNT 13.6 K/mm3 (4.0-10.0)
[2024-03-22 10:35] LABS: ANISOCYTOSIS 1+
[2024-03-22 11:00] LABS: CALCIUM 9.4 mg/dL (8.5-10.1); CREATININE 1.2 mg/dL (0.55-1.3); POTASSIUM 3.7 mmol/L (3.5-5.1)
[2024-03-22 11:01] LABS: ALBUMIN 2.9 g/dl (3.4-5.0); BILIRUBIN,TOTAL 0.9 mg/dL (0.2-1); TOT PROT 6.3 g/dl (6.4-8.2)
[2024-03-22 11:20] LABS: BLOOD UREA NITROGEN 15.1 mg/dL (7-18); MAGNESIUM 2.2 mg/dL (1.8-2.4)
[2024-03-23] MEDS: SODIUM CHLORIDE FOR INHALATION 3 ML VIAL.NEB IH PRN (01:05)
[2024-03-23] MEDS: ACETAMINOPHEN 325 MG TABLET (FP) PO PRN (07:18)
[2024-03-23 08:08] LABS: POTASSIUM 3.9 mmol/L (3.5-5.1)
[2024-03-23 08:12] LABS: HEMATOCRIT 34.8 % (35.4-49); HEMOGLOBIN 11.4 GM/dL (11.7-16.9); MCH 31.7 pg (25.7-33.7); MCHC 32.8 g/dl (32.0-35.9); MEAN CELL VOLUME 96.7 fl (80-96); MEAN PLT VOLUME 8.2 fl (7.5-11.1); PLATELET COUNT 219 10^3/uL (134-434); RDW 19.9 % (11.9-15.9); WHITE BLOOD COUNT 15.1 K/mm3 (4.0-10.0)
[2024-03-23 08:13] LABS: CALCIUM 9.5 mg/dL (8.5-10.1)
[2024-03-23 08:14] LABS: BLOOD UREA NITROGEN 17.3 mg/dL (7-18)
[2024-03-23 08:17] LABS: CREATININE 1.2 mg/dL (0.55-1.3)
[2024-03-23 08:19] LABS: BILIRUBIN,TOTAL 0.5 mg/dL (0.2-1); TOT PROT 6.7 g/dl (6.4-8.2)
[2024-03-23 09:27] LABS: ANISOCYTOSIS 1+; MACROCYTOSIS 0
[2024-03-24 10:59] LABS: HEMOGLOBIN 12.3 GM/dL (11.7-16.9); MCH 31.8 pg (25.7-33.7); MCHC 33.2 g/dl (32.0-35.9); MEAN CELL VOLUME 95.8 fl (80-96); MEAN PLT VOLUME 8.3 fl (7.5-11.1); PLATELET COUNT 251 10^3/uL (134-434); RBC 3.86 M/mm3 (4.00-5.60); RDW 20.5 % (11.9-15.9); WHITE BLOOD COUNT 14.2 K/mm3 (4.0-10.0)
[2024-03-24 11:08] LABS: POTASSIUM 3.8 mmol/L (3.5-5.1)
[2024-03-24 11:29] LABS: CALCIUM 9.7 mg/dL (8.5-10.1)
[2024-03-24 11:30] LABS: ALBUMIN 3.2 g/dl (3.4-5.0); BLOOD UREA NITROGEN 14.8 mg/dL (7-18); MAGNESIUM 2.3 mg/dL (1.8-2.4)
[2024-03-24 11:33] LABS: BILIRUBIN,TOTAL 0.4 mg/dL (0.2-1); CREATININE 1.3 mg/dL (0.55-1.3)
[2024-03-24 11:34] LABS: TOT PROT 7.1 g/dl (6.4-8.2)
[2024-03-24 12:25] LABS: ANISOCYTOSIS 2+; MACROCYTOSIS 0
[2024-03-25 07:19] VITALS: RESP 20
[2024-03-25 09:45] VITALS: BP 116/72; PULSE 107; TEMP 98.9
== END 2024-03-25 16:03 | disposition home or self-care (01) | DRG 139 ==
LOC: JER 22:25 → JERBED 03-18 01:24 → J4W 03-18 13:55 → J8W 03-19 22:59
PROVIDERS: ADMIT Internal Medicine; ATTEND Nurse Practitioner Acute Care
DX: J18.9 Pneumonia, unspecified organism (principal); C61 Malignant neoplasm of prostate; C78.00 Secondary malignant neoplasm of unspecified lung; C77.5 Secondary and unspecified malignant neoplasm of intrapelvic lymph nodes; D84.9 Immunodeficiency, unspecified; I10 Essential (primary) hypertension; J44.1 Chronic obstructive pulmonary disease with (acute) exacerbation; J44.0 Chronic obstructive pulmonary disease with (acute) lower respiratory infection; N40.0 Benign prostatic hyperplasia without lower urinary tract symptoms; R50.9 Fever, unspecified; R00.0 Tachycardia, unspecified; R09.02 Hypoxemia; Z77.120 Contact with and (suspected) exposure to mold (toxic)
CPT/HCPCS: 0241U-QW; 36415; 71045-TC-FY; 71275-TC; 80048; 80053; 80076; 81003; 82803; 82962; 83605; 83735; 84100; 84484; 85025; 85027; 85610; 85730; 86850; 86900; 86901; 87040; 87070; 87086; 87107; 87186; 87205; 87305; 87899; 93005; 93010; 94640; 99285-25; J0131

== ENCOUNTER 2024-04-08 09:55 | Day surgery (SDC) | payer OTHER ==
[~2024-04-08 09:55] MED LIST: SODIUM CHLORIDE 250 ML IV ONE
[2024-04-08] MEDS ORDERED: SODIUM CHLORIDE IVPB ONE (10:00)
[2024-04-08] MEDS ORDERED: DURVALUMAB IVPB ONE (10:00)
[2024-04-08] MEDS: LEUPROLIDE ACETATE (ELIGARD) 22.5 MG SYRINGE SQ ONE (11:13)
[2024-04-08 11:39] LABS: BASO % 0.8 % (0-2.0); EOS % 3.8 % (0-4.5); HEMATOCRIT 34.8 % (35.4-49); HEMOGLOBIN 11.6 GM/dL (11.7-16.9); LYMPH % 9.1 % (8-40); MCH 32.7 pg (25.7-33.7); MCHC 33.5 g/dl (32.0-35.9); MEAN CELL VOLUME 97.8 fl (80-96); MEAN PLT VOLUME 7.8 fl (7.5-11.1); NEUT % 75.3 % (42.8-82.8); PLATELET COUNT 209 10^3/uL (134-434); RBC 3.56 M/mm3 (4.00-5.60); WHITE BLOOD COUNT 7.4 K/mm3 (4.0-10.0)
[2024-04-08 11:48] LABS: CHLORIDE 111 mmol/L (98-107); POTASSIUM 4.4 mmol/L (3.5-5.1); SODIUM 144 mmol/L (136-145)
[2024-04-08 11:50] LABS: ALBUMIN 2.9 g/dl (3.4-5.0); ANION GAP 11 mmol/L (4-13); BLOOD UREA NITROGEN 23.1 mg/dL (7-18); CALCIUM 8.7 mg/dL (8.5-10.1); CO2 22 mmol/L (21-32); GLUCOSE,RANDOM 86 mg/dL (74-106)
[2024-04-08 11:52] LABS: AMYLASE 136 U/L (25-115)
[2024-04-08 11:53] LABS: BILIRUBIN,DIRECT 0.1 mg/dL (0.0-0.2); CREATININE 1.3 mg/dL (0.55-1.3); SGOT/AST 24 U/L (15-37); SGPT/ALT 40 U/L (13-61)
[2024-04-08 11:55] LABS: ALK PHOS 113 U/L (45-117); BILIRUBIN,TOTAL 0.4 mg/dL (0.2-1)
[2024-04-08 11:57] LABS: TOT PROT 6.4 g/dl (6.4-8.2)
[2024-04-08 18:39] VITALS: BP 106/75; PULSE 92; RESP 20; TEMP 98.4
== END 2024-04-08 11:30 | disposition home or self-care (01) ==
LOC: JONCCHEMO 09:55 → J7W 09:58 → JONCCHEMO 11:30
PROVIDERS: ATTEND Internal Medicine Hematology & Oncology
PROC: 3E013GC Introduction of Other Therapeutic Substance into Subcutaneous Tissue, Percutaneous Approach (ICD-10-PCS; principal; 2024-04-08)
DX: C61 Malignant neoplasm of prostate (principal); C78.00 Secondary malignant neoplasm of unspecified lung; Z76.89 Persons encountering health services in other specified circumstances
CPT/HCPCS: 36415; 80048; 80076; 82150; 82550; 83690; 84439; 84443; 85025; 96372; J9217

== ENCOUNTER 2024-05-06 11:18 | Day surgery (SDC) | payer OTHER ==
[2024-05-06 11:51] LABS: BASO % 0.5 % (0-2.0); EOS % 2.6 % (0-4.5); HEMATOCRIT 41.4 % (35.4-49); HEMOGLOBIN 13.4 GM/dL (11.7-16.9); LYMPH % 16.2 % (8-40); MCH 32.4 pg (25.7-33.7); MCHC 32.5 g/dl (32.0-35.9); MEAN CELL VOLUME 99.9 fl (80-96); MONO % 8.3 % (3.8-10.2); NEUT % 72.4 % (42.8-82.8); PLATELET COUNT 222 10^3/uL (134-434); RBC 4.14 M/mm3 (4.00-5.60); RDW 14.5 % (11.9-15.9); WHITE BLOOD COUNT 10.3 K/mm3 (4.0-10.0)
[2024-05-06 12:06] LABS: CHLORIDE 108 mmol/L (98-107); POTASSIUM 4.4 mmol/L (3.5-5.1); SODIUM 140 mmol/L (136-145)
[2024-05-06 12:08] LABS: ALBUMIN 3.6 g/dl (3.4-5.0); CALCIUM 9.8 mg/dL (8.5-10.1)
[2024-05-06 12:09] LABS: ANION GAP 9 mmol/L (4-13); BLOOD UREA NITROGEN 24.4 mg/dL (7-18); CO2 23 mmol/L (21-32); GLUCOSE,RANDOM 134 mg/dL (74-106)
[2024-05-06 12:10] LABS: AMYLASE 183 U/L (25-115)
[2024-05-06 12:11] LABS: BILIRUBIN,DIRECT 0.1 mg/dL (0.0-0.2); SGPT/ALT 28 U/L (13-61)
[2024-05-06 12:12] LABS: CREATININE 1.4 mg/dL (0.55-1.3); SGOT/AST 20 U/L (15-37)
[2024-05-06 12:13] LABS: BILIRUBIN,TOTAL 0.3 mg/dL (0.2-1); TOT PROT 7.3 g/dl (6.4-8.2)
[2024-05-06 12:14] LABS: ALK PHOS 129 U/L (45-117)
[2024-05-06] MEDS: SODIUM CHLORIDE 250 ML IV ONE (12:28)
[2024-05-06] MEDS: DURVALUMAB IVPB ONE (12:56)
[2024-05-06] MEDS: SODIUM CHLORIDE IVPB ONE (12:56)
[2024-05-06] MEDS: PORTA CATH FLUSH 10 ML IVPUSH PRN (14:00)
[2024-05-06 16:05] VITALS: RESP 16; TEMP 98.5
[2024-05-06 16:09] VITALS: BP 94/60; PULSE 86
== END 2024-05-06 14:15 | disposition home or self-care (01) ==
LOC: JONCCHEMO 11:18 → J7W 11:32 → JONCCHEMO 14:15
PROVIDERS: ATTEND Internal Medicine Hematology & Oncology
PROC: 3E04305 Introduction of Other Antineoplastic into Central Vein, Percutaneous Approach (ICD-10-PCS; principal; 2024-05-06)
PROC: 3E0437Z Introduction of Electrolytic and Water Balance Substance into Central Vein, Percutaneous Approach (ICD-10-PCS; 2024-05-06)
DX: Z51.11 Encounter for antineoplastic chemotherapy (principal); C61 Malignant neoplasm of prostate; C78.00 Secondary malignant neoplasm of unspecified lung
CPT/HCPCS: 36415; 80048; 80076; 82150; 82550; 83690; 84439; 84443; 85025; 96413; J9173

== ENCOUNTER 2024-05-20 13:24 | Day surgery (SDC) | payer OTHER ==
[~2024-05-20 13:24] MED LIST changes: +DURVALUMAB IVPB ONE; +SODIUM CHLORIDE IVPB ONE
[2024-05-20 14:15] LABS: BASO % 0.8 % (0-2.0); EOS % 2.7 % (0-4.5); HEMATOCRIT 41.7 % (35.4-49); HEMOGLOBIN 13.3 GM/dL (11.7-16.9); LYMPH % 21.7 % (8-40); MCH 31.2 pg (25.7-33.7); MEAN CELL VOLUME 97.6 fl (80-96); MEAN PLT VOLUME 7.9 fl (7.5-11.1); MONO % 8.7 % (3.8-10.2); NEUT % 66.1 % (42.8-82.8); PLATELET COUNT 203 10^3/uL (134-434); RBC 4.28 M/mm3 (4.00-5.60); RDW 13.6 % (11.9-15.9); WHITE BLOOD COUNT 8.9 K/mm3 (4.0-10.0)
[2024-05-20] MEDS: SODIUM CHLORIDE 250 ML IV ONE (15:18)
[2024-05-20 15:23] LABS: CHLORIDE 112 mmol/L (98-107); POTASSIUM 4.8 mmol/L (3.5-5.1); SODIUM 140 mmol/L (136-145)
[2024-05-20 15:27] LABS: ALBUMIN 3.6 g/dl (3.4-5.0); ANION GAP 6 mmol/L (4-13); BLOOD UREA NITROGEN 14.5 mg/dL (7-18); CALCIUM 9.4 mg/dL (8.5-10.1); CO2 21 mmol/L (21-32); GLUCOSE,RANDOM 96 mg/dL (74-106)
[2024-05-20 15:28] LABS: AMYLASE 149 U/L (25-115)
[2024-05-20 15:30] LABS: BILIRUBIN,DIRECT 0.1 mg/dL (0.0-0.2); CREATININE 1.2 mg/dL (0.55-1.3); SGOT/AST 22 U/L (15-37); SGPT/ALT 26 U/L (13-61)
[2024-05-20 15:31] LABS: BILIRUBIN,TOTAL 0.3 mg/dL (0.2-1)
[2024-05-20 15:32] LABS: TOT PROT 6.9 g/dl (6.4-8.2)
[2024-05-20 15:33] LABS: ALK PHOS 123 U/L (45-117)
[2024-05-20] MEDS: DURVALUMAB IVPB ONE (16:29)
[2024-05-20] MEDS: SODIUM CHLORIDE IVPB ONE (16:29)
[2024-05-20] MEDS: PORTA CATH FLUSH 10 ML IVPUSH PRN (17:25)
[2024-05-20 18:12] VITALS: RESP 18; TEMP 98.6
[2024-05-20 18:18] VITALS: BP 114/75; PULSE 81
== END 2024-05-20 18:28 | disposition home or self-care (01) ==
LOC: JONCCHEMO 13:24 → J7W 13:25 → JONCCHEMO 18:28
PROVIDERS: ATTEND Internal Medicine Hematology & Oncology
PROC: XW0 New Technology, Anatomical Regions, Introduction (ICD-10-PCS; principal; 2024-05-20)
DX: Z51.11 Encounter for antineoplastic chemotherapy (principal); C61 Malignant neoplasm of prostate; C78.00 Secondary malignant neoplasm of unspecified lung
CPT/HCPCS: 36415; 80048; 80076; 82150; 82550; 83690; 84439; 84443; 85025; J9173

== ENCOUNTER 2024-05-23 20:41 | Inpatient (IN) | payer OTHER ==
[2024-05-23] MEDS ORDERED: ALBUTEROL SO4 2.5/IPRATROPIUM 0.5 INH SOL 3 ML VIAL.NEB. NEB ONE ×2 (20:55→21:17)
[2024-05-23] MEDS: ALBUTEROL SO4 2.5/IPRATROPIUM 0.5 INH SOL 3 ML VIAL.NEB. NEB SCH (21:04)
[2024-05-23 21:44] LABS: BASO % 0.4 % (0-2.0); EOS % 1.9 % (0-4.5); HEMATOCRIT 40.2 % (35.4-49); HEMOGLOBIN 13.3 GM/dL (11.7-16.9); LYMPH % 26.1 % (8-40); MCH 31.2 pg (25.7-33.7); MCHC 33.1 g/dl (32.0-35.9); MEAN CELL VOLUME 94.3 fl (80-96); MEAN PLT VOLUME 7.9 fl (7.5-11.1); MONO % 9.5 % (3.8-10.2); NEUT % 62.1 % (42.8-82.8); PLATELET COUNT 215 10^3/uL (134-434); RBC 4.26 M/mm3 (4.00-5.60); RDW 13.9 % (11.9-15.9); WHITE BLOOD COUNT 10.1 K/mm3 (4.0-10.0)
[2024-05-23 22:00] LABS: VENOUS BASE EXCESS -2.7 mmol/L (-2-2); VENOUS O2 SATURATION 51.1 % (70-80); VENOUS PCO2 42.8 mmHg (38-52); VENOUS PH 7.346 (7.310-7.410)
[2024-05-23 22:03] LABS: POTASSIUM 3.5 mmol/L (3.5-5.1)
[2024-05-23 22:04] LABS: CALCIUM 9.8 mg/dL (8.5-10.1)
[2024-05-23 22:05] LABS: ALBUMIN 4.1 g/dl (3.4-5.0); BLOOD UREA NITROGEN 20.4 mg/dL (7-18)
[2024-05-23 22:09] LABS: CREATININE 1.3 mg/dL (0.55-1.3)
[2024-05-23 22:10] LABS: BILIRUBIN,TOTAL 0.6 mg/dL (0.2-1); TOT PROT 7.4 g/dl (6.4-8.2)
[2024-05-23 22:39] LABS: INR 1.01 (0.83-1.09); PROTHROMBIN TIME (PATIENT) 11.6 SEC (9.7-13.0)
[2024-05-23] MEDS ORDERED: guaiFENesin 200 MG/10 ML 10 ML UNIT-DOSE CUPS ONE (22:48)
[2024-05-23] MEDS: guaiFENesin 200 MG/10 ML 10 ML UNIT-DOSE CUPS PO ONE (22:50)
[2024-05-23 23:25] LABS: HIV INTERPRETATION NEGATIVE (NEGATIVE)
[2024-05-23] MEDS: SODIUM CHLORIDE 0.9% 1000 ML INFUS.BAG IV ONE (23:30)
[2024-05-24] MEDS ORDERED: DEXAMETHASONE SOD PHOSPHATE 10 MG/1 ML VIAL ONE (00:23)
[2024-05-24] MEDS ORDERED: CEFEPIME 1 GM/100 ML BAG IVPB ONE (00:24)
[2024-05-24] MEDS: DEXAMETHASONE SOD PHOSPHATE 10 MG/1 ML VIAL IVPUSH ONE (00:47)
[2024-05-24] MEDS: CEFEPIME HCL/D5W 1 GM/50 ML BAG IVPB ONE (00:47)
[2024-05-24] MEDS: VANCOMYCIN 1,500 MG in DEXTROSE 5%-WATER - 250 ML IVPB ONE (00:56)
[2024-05-24] MEDS: ALBUTEROL SULFATE 0.021% (0.63 MG/3 ML) VIAL.NEB NEB ONE (01:15)
[2024-05-24] MEDS: VANCOMYCIN PREMIX 1.5 GM 1,500 MG/300 ML BAG IVPB ONE (02:29)
[2024-05-24] MEDS: VANCOMYCIN 1,000 MG in DEXTROSE 5%-WATER - 250 ML IVPB SCH ×2 (04:10→06:10)
[2024-05-24 05:39] VITALS: BMI 23.2
[2024-05-24] MEDS: ALBUTEROL SO4 2.5/IPRATROPIUM 0.5 INH SOL 3 ML VIAL.NEB. NEB SCH (08:09)
[2024-05-24 08:20] LABS: MAGNESIUM 1.9 mg/dL (1.8-2.4)
[2024-05-24 08:21] LABS: HEMATOCRIT 36.9 % (35.4-49); HEMOGLOBIN 12.1 GM/dL (11.7-16.9); MCH 31.2 pg (25.7-33.7); MCHC 32.8 g/dl (32.0-35.9); MEAN CELL VOLUME 95.2 fl (80-96); MEAN PLT VOLUME 8.3 fl (7.5-11.1); PLATELET COUNT 198 10^3/uL (134-434); RBC 3.88 M/mm3 (4.00-5.60); RDW 13.7 % (11.9-15.9); WHITE BLOOD COUNT 7.4 K/mm3 (4.0-10.0)
[2024-05-24 08:25] LABS: PHOSPHOROUS 3.3 mg/dL (2.5-4.9)
[2024-05-24 09:05] LABS: ANISOCYTOSIS 2+; MACROCYTOSIS 0
[2024-05-24] MEDS: ENOXAPARIN NA (PORCINE) 40 MG/0.4 ML DISP.SYRIN SQ SCH (09:44)
[2024-05-24] MEDS: FINASTERIDE 5 MG TABLET (FP) PO SCH (09:44)
[2024-05-24] MEDS: TAMSULOSIN HCL 0.4 MG CAP PO SCH (09:44)
[2024-05-24] MEDS: amLODIPine BESYLATE 5 MG TABLET (FP) PO SCH (09:44)
[2024-05-24] MEDS: CEFEPIME 2 GM in DEXTROSE 5%-WATER - 50 ML IVPB SCH (09:45)
[2024-05-24] MEDS: BICALUTAMIDE 50 MG TABLET (FP) PO SCH (09:45)
[2024-05-24] MEDS: methylPREDNISolone NA SUCC 40 MG/1 ML VIAL IVPUSH SCH (10:20)
[2024-05-24] MEDS ORDERED: CEFEPIME 2 GM in DEXTROSE 5%-WATER 100 ML IVPB SCH (10:39)
[2024-05-24] MEDS: ACETAMINOPHEN 325 MG TABLET (FP) PO PRN (11:06)
[2024-05-24] MEDS: BUDESONIDE/FORMETEROL FUMARATE 160/4.5 mcg INHALER IH SCH (11:06)
[2024-05-24] MEDS: CEFEPIME 2 GM in DEXTROSE 5%-WATER 100 ML IVPB SCH (12:03)
[2024-05-24] MEDS: CEFEPIME HCL 2 GM VIAL (RESTRICTED TO ID) IVPB SCH (12:03)
[2024-05-24] MEDS ORDERED: VANCOMYCIN/WATER FOR INJ (PEG) 1,000 MG/200 ML BAG IVPB SCH (13:00)
[2024-05-24] MEDS ORDERED: VANCOMYCIN 1,000 MG in DEXTROSE 5%-WATER - 250 ML IVPB SCH (14:00)
[2024-05-25] MEDS: VANCOMYCIN/WATER FOR INJ (PEG) 1,000 MG/200 ML BAG IVPB SCH (01:13)
[2024-05-25 07:56] LABS: POTASSIUM 4.2 mmol/L (3.5-5.1)
[2024-05-25 08:02] LABS: CALCIUM 9.7 mg/dL (8.5-10.1)
[2024-05-25 08:03] LABS: ALBUMIN 3.7 g/dl (3.4-5.0); BLOOD UREA NITROGEN 20.3 mg/dL (7-18)
[2024-05-25 08:04] LABS: MAGNESIUM 2.1 mg/dL (1.8-2.4)
[2024-05-25 08:06] LABS: CREATININE 1.1 mg/dL (0.55-1.3); PHOSPHOROUS 5.7 mg/dL (2.5-4.9)
[2024-05-25 08:07] LABS: BILIRUBIN,TOTAL 0.4 mg/dL (0.2-1)
[2024-05-25 08:08] LABS: HEMATOCRIT 38.8 % (35.4-49); HEMOGLOBIN 12.7 GM/dL (11.7-16.9); MCH 31.5 pg (25.7-33.7); MCHC 32.8 g/dl (32.0-35.9); MEAN CELL VOLUME 96.2 fl (80-96); MEAN PLT VOLUME 8.2 fl (7.5-11.1); PLATELET COUNT 187 10^3/uL (134-434); RBC 4.04 M/mm3 (4.00-5.60); RDW 13.9 % (11.9-15.9); TOT PROT 6.9 g/dl (6.4-8.2); WHITE BLOOD COUNT 15.5 K/mm3 (4.0-10.0)
[2024-05-25 08:51] LABS: ANISOCYTOSIS 0; MACROCYTOSIS 0
[2024-05-25] MEDS: CLOTRIMAZOLE 1%TOPICAL SOLUTION 30 ML BOTTLE TP SCH ×2 (11:50→12:21)
[2024-05-25] MEDS: CLOTRIMAZOLE 1% CREAM TP SCH (15:05)
[2024-05-26 07:40] LABS: HEMATOCRIT 38.7 % (35.4-49); HEMOGLOBIN 12.4 GM/dL (11.7-16.9); MCH 30.8 pg (25.7-33.7); MCHC 32.1 g/dl (32.0-35.9); MEAN CELL VOLUME 96.1 fl (80-96); MEAN PLT VOLUME 8.4 fl (7.5-11.1); PLATELET COUNT 197 10^3/uL (134-434); RBC 4.02 M/mm3 (4.00-5.60); RDW 13.7 % (11.9-15.9); WHITE BLOOD COUNT 17.3 K/mm3 (4.0-10.0)
[2024-05-26 07:55] LABS: POTASSIUM 4.2 mmol/L (3.5-5.1)
[2024-05-26 08:02] LABS: ALBUMIN 3.5 g/dl (3.4-5.0); CALCIUM 9.5 mg/dL (8.5-10.1); MAGNESIUM 2.4 mg/dL (1.8-2.4)
[2024-05-26 08:04] LABS: CREATININE 1.1 mg/dL (0.55-1.3)
[2024-05-26 08:05] LABS: BILIRUBIN,TOTAL 0.4 mg/dL (0.2-1)
[2024-05-26 08:06] LABS: TOT PROT 6.7 g/dl (6.4-8.2)
[2024-05-26 08:42] LABS: ANISOCYTOSIS 0; MACROCYTOSIS 0
[2024-05-26] MEDS: methylPREDNISolone NA SUCC 40 MG/1 ML VIAL IVPUSH SCH (21:44)
[2024-05-27 07:28] LABS: HEMATOCRIT 38.8 % (35.4-49); HEMOGLOBIN 12.5 GM/dL (11.7-16.9); LYMPH % 6.6 % (8-40); MCH 30.8 pg (25.7-33.7); MCHC 32.3 g/dl (32.0-35.9); MEAN CELL VOLUME 95.5 fl (80-96); MEAN PLT VOLUME 8.4 fl (7.5-11.1); MONO % 6.5 % (3.8-10.2); NEUT % 86.9 % (42.8-82.8); PLATELET COUNT 204 10^3/uL (134-434); RBC 4.07 M/mm3 (4.00-5.60); RDW 13.7 % (11.9-15.9)
[2024-05-27 07:38] LABS: POTASSIUM 3.9 mmol/L (3.5-5.1)
[2024-05-27 07:40] LABS: CALCIUM 9.2 mg/dL (8.5-10.1)
[2024-05-27 07:41] LABS: ALBUMIN 3.4 g/dl (3.4-5.0); BLOOD UREA NITROGEN 28.6 mg/dL (7-18)
[2024-05-27 07:44] LABS: CREATININE 1.1 mg/dL (0.55-1.3)
[2024-05-27 07:45] LABS: BILIRUBIN,TOTAL 0.4 mg/dL (0.2-1); TOT PROT 6.7 g/dl (6.4-8.2)
[2024-05-28 08:59] LABS: HEMATOCRIT 40.8 % (35.4-49); HEMOGLOBIN 13.3 GM/dL (11.7-16.9); MCH 31.2 pg (25.7-33.7); MCHC 32.7 g/dl (32.0-35.9); MEAN CELL VOLUME 95.4 fl (80-96); MEAN PLT VOLUME 8.8 fl (7.5-11.1); PLATELET COUNT 219 10^3/uL (134-434); RBC 4.27 M/mm3 (4.00-5.60); RDW 13.3 % (11.9-15.9); WHITE BLOOD COUNT 14.5 K/mm3 (4.0-10.0)
[2024-05-28 09:10] LABS: POTASSIUM 3.9 mmol/L (3.5-5.1)
[2024-05-28 09:25] LABS: BLOOD UREA NITROGEN 28.3 mg/dL (7-18)
[2024-05-28 09:27] LABS: ALBUMIN 3.7 g/dl (3.4-5.0); CALCIUM 9.6 mg/dL (8.5-10.1)
[2024-05-28 09:31] LABS: CREATININE 1.2 mg/dL (0.55-1.3)
[2024-05-28 09:32] LABS: BILIRUBIN,TOTAL 0.4 mg/dL (0.2-1)
[2024-05-28 09:37] LABS: ANISOCYTOSIS 0; MACROCYTOSIS 0
[2024-05-28] MEDS: ALBUTEROL SO4 2.5/IPRATROPIUM 0.5 INH SOL 3 ML VIAL.NEB. NEB PRN (11:38)
[2024-05-29 03:13] VITALS: PULSE 99; TEMP 98.1
[2024-05-29 06:31] VITALS: BP 122/85
[2024-05-29 08:46] LABS: HEMATOCRIT 38.4 % (35.4-49); MCHC 33.9 g/dl (32.0-35.9); MEAN CELL VOLUME 94.4 fl (80-96); MEAN PLT VOLUME 8.5 fl (7.5-11.1); PLATELET COUNT 208 10^3/uL (134-434); RBC 4.07 M/mm3 (4.00-5.60); RDW 13.7 % (11.9-15.9); WHITE BLOOD COUNT 13.6 K/mm3 (4.0-10.0)
[2024-05-29 09:11] LABS: POTASSIUM 3.8 mmol/L (3.5-5.1)
[2024-05-29 09:13] LABS: ALBUMIN 3.3 g/dl (3.4-5.0); BLOOD UREA NITROGEN 26.8 mg/dL (7-18)
[2024-05-29 09:16] LABS: CREATININE 1.2 mg/dL (0.55-1.3)
[2024-05-29 09:18] LABS: BILIRUBIN,TOTAL 0.3 mg/dL (0.2-1); TOT PROT 6.5 g/dl (6.4-8.2)
[2024-05-29 09:26] LABS: ANISOCYTOSIS 0; MACROCYTOSIS 0
[2024-05-29] MEDS: predniSONE 20 MG TABLET (UD) PO SCH (10:12)
[2024-05-29] MEDS: FLU VACCINE (FLULAVAL) PF 45 MCG/0.5 ML SYRINGE 2024-2025 IM ONE (11:13)
[2024-05-29 11:20] VITALS: RESP 16
== END 2024-05-29 13:17 | disposition home or self-care (01) | DRG 720 ==
LOC: JER 20:41 → JERBED 05-24 01:01 → J4W 05-24 04:41
PROVIDERS: ADMIT Internal Medicine; ATTEND Internal Medicine
DX: A41.9 Sepsis, unspecified organism (principal); J96.21 Acute and chronic respiratory failure with hypoxia; C34.90 Malignant neoplasm of unspecified part of unspecified bronchus or lung; J18.9 Pneumonia, unspecified organism; J44.0 Chronic obstructive pulmonary disease with (acute) lower respiratory infection; J44.1 Chronic obstructive pulmonary disease with (acute) exacerbation; I10 Essential (primary) hypertension; N40.0 Benign prostatic hyperplasia without lower urinary tract symptoms; C61 Malignant neoplasm of prostate
CPT/HCPCS: 0241U-QW; 36415; 71045-TC-FY; 71275-TC; 80053; 82550; 82803; 83036; 83605; 83735; 84100; 84484; 85025; 85027; 85610; 85730; 86803; 86850; 86900; 86901; 87070; 87205; 87389; 87899; 93005; 93010; 94640; 94660; 99285-25; J1100; Q9967

== ENCOUNTER 2024-06-06 11:38 | Day surgery (SDC) | payer OTHER ==
[2024-06-06 12:17] LABS: BASO % 0.1 % (0-2.0); EOS % 0.8 % (0-4.5); HEMATOCRIT 39.6 % (35.4-49); HEMOGLOBIN 12.5 GM/dL (11.7-16.9); LYMPH % 8.9 % (8-40); MCH 30.5 pg (25.7-33.7); MCHC 31.6 g/dl (32.0-35.9); MEAN CELL VOLUME 96.4 fl (80-96); MEAN PLT VOLUME 8.1 fl (7.5-11.1); MONO % 7.4 % (3.8-10.2); NEUT % 82.8 % (42.8-82.8); PLATELET COUNT 138 10^3/uL (134-434); RDW 13.4 % (11.9-15.9); WHITE BLOOD COUNT 13.7 K/mm3 (4.0-10.0)
[2024-06-06] MEDS: SODIUM CHLORIDE 250 ML IV ONE (12:29)
[2024-06-06 13:07] LABS: POTASSIUM 3.8 mmol/L (3.5-5.1)
[2024-06-06 13:08] LABS: CALCIUM 9.1 mg/dL (8.5-10.1)
[2024-06-06 13:09] LABS: BLOOD UREA NITROGEN 19.4 mg/dL (7-18)
[2024-06-06 13:10] LABS: ALBUMIN 3.3 g/dl (3.4-5.0)
[2024-06-06 13:12] LABS: CREATININE 1.2 mg/dL (0.55-1.3)
[2024-06-06 13:13] LABS: BILIRUBIN,DIRECT 0.1 mg/dL (0.0-0.2)
[2024-06-06 13:15] LABS: BILIRUBIN,TOTAL 0.4 mg/dL (0.2-1)
[2024-06-06] MEDS: DURVALUMAB IVPB ONE (13:51)
[2024-06-06] MEDS: SODIUM CHLORIDE IVPB ONE (13:51)
[2024-06-06] MEDS: PORTA CATH FLUSH 10 ML IVPUSH PRN (15:15)
[2024-06-06 15:21] VITALS: RESP 16; TEMP 98.3
[2024-06-06 15:29] VITALS: BP 107/55; PULSE 100
== END 2024-06-06 15:15 | disposition home or self-care (01) ==
LOC: JONCCHEMO 11:38 → J7W 11:44 → JONCCHEMO 15:15
PROVIDERS: ATTEND Internal Medicine Hematology & Oncology
PROC: XW0 New Technology, Anatomical Regions, Introduction (ICD-10-PCS; principal; 2024-06-06)
DX: Z51.11 Encounter for antineoplastic chemotherapy (principal); C61 Malignant neoplasm of prostate
CPT/HCPCS: 36415; 80048; 80076; 82150; 82550; 83690; 84439; 84443; 85025; 96413; J9173

== ENCOUNTER 2024-06-20 11:10 | Day surgery (SDC) | payer OTHER ==
[2024-06-20 11:37] LABS: BASO % 0.4 % (0-2.0); EOS % 1.5 % (0-4.5); HEMATOCRIT 40.8 % (35.4-49); HEMOGLOBIN 13.6 GM/dL (11.7-16.9); LYMPH % 20.1 % (8-40); MCH 30.8 pg (25.7-33.7); MCHC 33.4 g/dl (32.0-35.9); MEAN CELL VOLUME 92.3 fl (80-96); MEAN PLT VOLUME 7.7 fl (7.5-11.1); MONO % 14.7 % (3.8-10.2); NEUT % 63.3 % (42.8-82.8); PLATELET COUNT 227 10^3/uL (134-434); RBC 4.42 M/mm3 (4.00-5.60); RDW 12.4 % (11.9-15.9); WHITE BLOOD COUNT 8.2 K/mm3 (4.0-10.0)
[2024-06-20] MEDS: SODIUM CHLORIDE 250 ML IV ONE (11:37)
[2024-06-20 12:05] LABS: CHLORIDE 113 mmol/L (98-107); POTASSIUM 4.4 mmol/L (3.5-5.1); SODIUM 142 mmol/L (136-145)
[2024-06-20 12:07] LABS: ALBUMIN 3.6 g/dl (3.4-5.0); ANION GAP 7 mmol/L (4-13); BLOOD UREA NITROGEN 21.5 mg/dL (7-18); CALCIUM 10.4 mg/dL (8.5-10.1); CO2 23 mmol/L (21-32)
[2024-06-20 12:08] LABS: GLUCOSE,RANDOM 102 mg/dL (74-106)
[2024-06-20 12:10] LABS: CREATININE 1.3 mg/dL (0.55-1.3); SGOT/AST 21 U/L (15-37)
[2024-06-20 12:12] LABS: BILIRUBIN,TOTAL 0.5 mg/dL (0.2-1)
[2024-06-20 12:17] LABS: SGPT/ALT 25 U/L (13-61)
[2024-06-20 12:27] LABS: ALK PHOS 122 U/L (45-117); BILIRUBIN,DIRECT 0.1 mg/dL (0.0-0.2)
[2024-06-20] MEDS: SODIUM CHLORIDE IVPB ONE (13:25)
[2024-06-20] MEDS: DURVALUMAB IVPB ONE (13:25)
[2024-06-20] MEDS: PORTA CATH FLUSH 10 ML IVPUSH PRN (14:30)
[2024-06-20 15:40] VITALS: BP 109/69; PULSE 113; RESP 20; TEMP 98
== END 2024-06-20 14:50 | disposition home or self-care (01) ==
LOC: JONCCHEMO 11:10 → J7W 11:11 → JONCCHEMO 14:50
PROVIDERS: ATTEND Internal Medicine Hematology & Oncology
DX: Z51.11 Encounter for antineoplastic chemotherapy (principal); C61 Malignant neoplasm of prostate
CPT/HCPCS: 36415; 80048; 80076; 82150; 82550; 83690; 84439; 84443; 85025; 96413; J9173

== ENCOUNTER 2024-07-04 11:12 | Day surgery (SDC) | payer OTHER ==
[2024-07-04 11:37] LABS: BASO % 0.6 % (0-2.0); HEMATOCRIT 39.4 % (35.4-49); HEMOGLOBIN 12.9 GM/dL (11.7-16.9); LYMPH % 16.9 % (8-40); MCH 29.6 pg (25.7-33.7); MCHC 32.8 g/dl (32.0-35.9); MEAN CELL VOLUME 90.4 fl (80-96); MEAN PLT VOLUME 8.2 fl (7.5-11.1); NEUT % 74.5 % (42.8-82.8); PLATELET COUNT 210 10^3/uL (134-434); RBC 4.36 M/mm3 (4.00-5.60); RDW 12.5 % (11.9-15.9)
[2024-07-04 12:04] LABS: ALBUMIN 3.3 g/dl (3.4-5.0)
[2024-07-04 12:07] LABS: BILIRUBIN,DIRECT 0.2 mg/dL (0.0-0.2)
[2024-07-04 12:09] LABS: BILIRUBIN,TOTAL 0.6 mg/dL (0.2-1); TOT PROT 6.2 g/dl (6.4-8.2)
[2024-07-04 12:12] LABS: CHLORIDE 112 mmol/L (98-107); POTASSIUM 4.1 mmol/L (3.5-5.1); SODIUM 140 mmol/L (136-145)
[2024-07-04 12:13] LABS: CALCIUM 10.2 mg/dL (8.5-10.1)
[2024-07-04 12:14] LABS: ANION GAP 9 mmol/L (4-13); CO2 19 mmol/L (21-32); GLUCOSE,RANDOM 215 mg/dL (74-106)
[2024-07-04 12:17] LABS: CREATININE 1.2 mg/dL (0.55-1.3)
[2024-07-04] MEDS: SODIUM CHLORIDE 250 ML IV ONE (12:18)
[2024-07-04] MEDS: SODIUM CHLORIDE IVPB ONE (12:39)
[2024-07-04] MEDS: DURVALUMAB IVPB ONE (12:39)
[2024-07-04] MEDS: LEUPROLIDE ACETATE (ELIGARD) 22.5 MG SYRINGE SQ ONE (14:00)
[2024-07-04 18:02] VITALS: BP 119/60; PULSE 119; RESP 20; TEMP 98
== END 2024-07-04 14:15 | disposition home or self-care (01) ==
LOC: JONCCHEMO 11:12 → J7W 11:13 → JONCCHEMO 14:15
PROVIDERS: ATTEND Internal Medicine Hematology & Oncology
DX: Z51.11 Encounter for antineoplastic chemotherapy (principal); C61 Malignant neoplasm of prostate
CPT/HCPCS: 36415; 80048; 80076; 82150; 82550; 83690; 84439; 84443; 85025; 96401; 96413; J9173; J9217

== ENCOUNTER 2024-07-18 11:11 | Day surgery (SDC) | payer OTHER ==
[2024-07-18 11:16] LABS: BASO % 0.2 % (0-2.0); EOS % 1.7 % (0-4.5); HEMATOCRIT 36.7 % (35.4-49); HEMOGLOBIN 12.3 GM/dL (11.7-16.9); MCH 29.7 pg (25.7-33.7); MCHC 33.7 g/dl (32.0-35.9); MEAN CELL VOLUME 88.2 fl (80-96); MEAN PLT VOLUME 7.8 fl (7.5-11.1); MONO % 5.6 % (3.8-10.2); NEUT % 77.5 % (42.8-82.8); PLATELET COUNT 211 10^3/uL (134-434); RBC 4.16 M/mm3 (4.00-5.60); RDW 12.6 % (11.9-15.9); WHITE BLOOD COUNT 10.8 K/mm3 (4.0-10.0)
[2024-07-18 11:33] LABS: POTASSIUM 3.4 mmol/L (3.5-5.1)
[2024-07-18 11:37] LABS: ALBUMIN 3.3 g/dl (3.4-5.0); CALCIUM 9.8 mg/dL (8.5-10.1)
[2024-07-18 11:39] LABS: BILIRUBIN,DIRECT 0.1 mg/dL (0.0-0.2); CREATININE 1.2 mg/dL (0.55-1.3)
[2024-07-18 11:41] LABS: BILIRUBIN,TOTAL 0.4 mg/dL (0.2-1); TOT PROT 6.1 g/dl (6.4-8.2)
[2024-07-18] MEDS: SODIUM CHLORIDE 250 ML IV ONE (12:06)
[2024-07-18] MEDS: DURVALUMAB IVPB ONE (12:50)
[2024-07-18] MEDS: SODIUM CHLORIDE IVPB ONE (12:50)
[2024-07-18] MEDS: PORTA CATH FLUSH 10 ML IVPUSH PRN (14:00)
[2024-07-18 15:54] VITALS: TEMP 98.5
[2024-07-18 15:57] VITALS: BP 131/75; PULSE 95; RESP 20
== END 2024-07-18 14:00 | disposition home or self-care (01) ==
LOC: JONCCHEMO 11:11 → J7W 11:12 → JONCCHEMO 14:00
PROVIDERS: ATTEND Internal Medicine Hematology & Oncology
PROC: 3E04305 Introduction of Other Antineoplastic into Central Vein, Percutaneous Approach (ICD-10-PCS; principal; 2024-07-18)
PROC: 3E0437Z Introduction of Electrolytic and Water Balance Substance into Central Vein, Percutaneous Approach (ICD-10-PCS; 2024-07-18)
DX: Z51.11 Encounter for antineoplastic chemotherapy (principal); C34.32 Malignant neoplasm of lower lobe, left bronchus or lung; C79.82 Secondary malignant neoplasm of genital organs
CPT/HCPCS: 36415; 80048; 80076; 82150; 82550; 83690; 84439; 84443; 85025; 96413; J9173

== ENCOUNTER 2024-08-01 10:16 | Day surgery (SDC) | payer OTHER ==
[2024-08-01] MEDS: SODIUM CHLORIDE 250 ML IV ONE (10:30)
[2024-08-01 10:44] LABS: BASO % 0.4 % (0-2.0); EOS % 1.8 % (0-4.5); LYMPH % 26.3 % (8-40); MCH 29.5 pg (25.7-33.7); MCHC 33.3 g/dl (32.0-35.9); MEAN CELL VOLUME 88.5 fl (80-96); MEAN PLT VOLUME 8.3 fl (7.5-11.1); MONO % 5.1 % (3.8-10.2); NEUT % 66.4 % (42.8-82.8); PLATELET COUNT 226 10^3/uL (134-434); RDW 13.6 % (11.9-15.9); WHITE BLOOD COUNT 11.6 K/mm3 (4.0-10.0)
[2024-08-01 11:07] LABS: CHLORIDE 113 mmol/L (98-107); POTASSIUM 3.8 mmol/L (3.5-5.1); SODIUM 143 mmol/L (136-145)
[2024-08-01 11:09] LABS: CALCIUM 9.3 mg/dL (8.5-10.1)
[2024-08-01 11:10] LABS: ALBUMIN 3.6 g/dl (3.4-5.0); AMYLASE 138 U/L (25-115); ANION GAP 7 mmol/L (4-13); BLOOD UREA NITROGEN 13.5 mg/dL (7-18); CO2 23 mmol/L (21-32); GLUCOSE,RANDOM 154 mg/dL (74-106)
[2024-08-01 11:12] LABS: BILIRUBIN,DIRECT 0.1 mg/dL (0.0-0.2); CREATININE 1.1 mg/dL (0.55-1.3); SGOT/AST 16 U/L (15-37); SGPT/ALT 23 U/L (13-61)
[2024-08-01 11:14] LABS: BILIRUBIN,TOTAL 0.5 mg/dL (0.2-1); TOT PROT 6.4 g/dl (6.4-8.2)
[2024-08-01 11:15] LABS: ALK PHOS 125 U/L (45-117)
[2024-08-01] MEDS: SODIUM CHLORIDE IV ONE (11:52)
[2024-08-01] MEDS: DURVALUMAB IV ONE (11:52)
[2024-08-01] MEDS: PORTA CATH FLUSH 10 ML IVPUSH PRN (12:40)
[2024-08-01 15:00] VITALS: BP 148/88; PULSE 111; RESP 20; TEMP 98
== END 2024-08-01 12:55 | disposition home or self-care (01) ==
LOC: J7W 10:16 → JONCCHEMO 10:16
PROVIDERS: ATTEND Internal Medicine Hematology & Oncology
DX: Z51.11 Encounter for antineoplastic chemotherapy (principal); C61 Malignant neoplasm of prostate; C78.00 Secondary malignant neoplasm of unspecified lung
CPT/HCPCS: 36415; 80048; 80076; 82150; 82550; 83690; 84439; 84443; 85025; 96413; J9173

== ENCOUNTER 2024-08-14 13:02 | Emergency (ER) | payer OTHER ==
[2024-08-14 13:57] VITALS: BP 127/76; PULSE 97; RESP 18; TEMP 98.5; BMI 22.8
[2024-08-14] MEDS: SODIUM CHLORIDE FOR INHALATION 3 ML VIAL.NEB IH ONE (15:06)
== END 2024-08-14 17:34 | disposition home or self-care (01) ==
LOC: JER 13:02
DX: R05.1 Acute cough (principal); J06.9 Acute upper respiratory infection, unspecified; R06.02 Shortness of breath; R09.89 Other specified symptoms and signs involving the circulatory and respiratory systems; Z20.822 Contact with and (suspected) exposure to COVID-19
CPT/HCPCS: 0241U-QW; 71045-TC-FY; 93005; 93010; 99285-25

== ENCOUNTER 2024-08-15 10:44 | Day surgery (SDC) | payer OTHER ==
[~2024-08-15 10:44] MED LIST changes: +DURVALUMAB IV ONE; -DURVALUMAB IVPB ONE; -SODIUM CHLORIDE 250 ML IV ONE; +SODIUM CHLORIDE IV ONE; -SODIUM CHLORIDE IVPB ONE
[2024-08-15 10:46] LABS: BASO % 0.4 % (0-2.0); EOS % 1.7 % (0-4.5); HEMATOCRIT 39.6 % (35.4-49); HEMOGLOBIN 13.1 GM/dL (11.7-16.9); LYMPH % 24.1 % (8-40); MCH 29.4 pg (25.7-33.7); MONO % 5.9 % (3.8-10.2); NEUT % 67.9 % (42.8-82.8); PLATELET COUNT 247 10^3/uL (134-434); RBC 4.45 M/mm3 (4.00-5.60); RDW 15.3 % (11.9-15.9); WHITE BLOOD COUNT 11.7 K/mm3 (4.0-10.0)
[2024-08-15 11:09] LABS: POTASSIUM 3.6 mmol/L (3.5-5.1)
[2024-08-15 11:12] LABS: ALBUMIN 3.9 g/dl (3.4-5.0); BLOOD UREA NITROGEN 14.9 mg/dL (7-18); CALCIUM 9.6 mg/dL (8.5-10.1)
[2024-08-15 11:15] LABS: BILIRUBIN,DIRECT 0.2 mg/dL (0.0-0.2); CREATININE 1.2 mg/dL (0.55-1.3)
[2024-08-15 11:17] LABS: BILIRUBIN,TOTAL 0.6 mg/dL (0.2-1)
[2024-08-15] MEDS: SODIUM CHLORIDE 250 ML IV ONE (11:39)
[2024-08-15] MEDS: DURVALUMAB IV ONE (11:56)
[2024-08-15] MEDS: SODIUM CHLORIDE IV ONE (11:56)
[2024-08-15] MEDS: PORTA CATH FLUSH 10 ML IVPUSH PRN (13:05)
[2024-08-15 14:44] VITALS: BP 122/77; PULSE 96; RESP 18; TEMP 98.4
== END 2024-08-15 13:30 | disposition home or self-care (01) ==
LOC: JONCCHEMO 10:44 → J7W 10:45 → JONCCHEMO 13:30
PROVIDERS: ATTEND Internal Medicine Hematology & Oncology
DX: Z51.11 Encounter for antineoplastic chemotherapy (principal); C61 Malignant neoplasm of prostate; C78.00 Secondary malignant neoplasm of unspecified lung
CPT/HCPCS: 36415; 80048; 80076; 82150; 82550; 82553; 83690; 84439; 84443; 85025; 96413; J9173

== ENCOUNTER 2024-08-15 18:26 | Emergency (ER) | payer OTHER ==
[2024-08-15 18:40] VITALS: TEMP 98.8; BMI 22.6
[2024-08-15] MEDS ORDERED: predniSONE 20 MG TABLET (UD) ONE (20:07)
[2024-08-15] MEDS ORDERED: ALBUTEROL SO4 2.5/IPRATROPIUM 0.5 INH SOL 3 ML VIAL.NEB. NEB ONE ×2 (20:07→21:31)
[2024-08-15] MEDS: ALBUTEROL SO4 2.5/IPRATROPIUM 0.5 INH SOL 3 ML VIAL.NEB. NEB ONE (20:17)
[2024-08-15] MEDS: predniSONE 20 MG TABLET (UD) PO ONE (20:17)
[2024-08-15] MEDS ORDERED: AZITHROMYCIN 500 MG TABLET ONE (21:22)
[2024-08-15] MEDS: AZITHROMYCIN 250 MG TABLET PO ONE (21:24)
[2024-08-15] MEDS: ALBUTEROL SO4 2.5/IPRATROPIUM 0.5 INH SOL 3 ML VIAL.NEB. NEB SCH (21:35)
[2024-08-15 22:46] VITALS: BP 125/83; PULSE 129; RESP 18
== END 2024-08-15 22:51 | disposition home or self-care (01) ==
LOC: JER 18:26
PROC: 3E0F7GC Introduction of Other Therapeutic Substance into Respiratory Tract, Via Natural or Artificial Opening (ICD-10-PCS; principal; 2024-08-15)
DX: R05.9 Cough, unspecified (principal); J06.9 Acute upper respiratory infection, unspecified; R09.81 Nasal congestion
CPT/HCPCS: 99283-25

== ENCOUNTER 2024-08-29 11:05 | Inpatient (IN) | payer OTHER ==
[2024-08-29] MEDS ORDERED: ONDANSETRON 4 MG/2 ML VIAL ONE (12:09)
[2024-08-29] MEDS: ONDANSETRON 4 MG/2 ML VIAL IVPUSH ONE (12:40)
[2024-08-29 12:46] LABS: BASO % 0.3 % (0-2.0); EOS % 0.1 % (0-4.5); HEMATOCRIT 48.2 % (35.4-49); HEMOGLOBIN 15.7 GM/dL (11.7-16.9); LYMPH % 9.9 % (8-40); MCH 29.8 pg (25.7-33.7); MCHC 32.5 g/dl (32.0-35.9); MEAN CELL VOLUME 91.5 fl (80-96); MEAN PLT VOLUME 9.5 fl (7.5-11.1); MONO % 2.4 % (3.8-10.2); NEUT % 87.3 % (42.8-82.8); PLATELET COUNT 221 10^3/uL (134-434); RBC 5.27 M/mm3 (4.00-5.60); RDW 14.6 % (11.9-15.9); WHITE BLOOD COUNT 12.9 K/mm3 (4.0-10.0)
[2024-08-29] MEDS: SODIUM CHLORIDE 0.9% 500 ML INFUS.BAG IV ONE (12:46)
[2024-08-29 12:59] LABS: ACTIVATED PTT 29.6 SECONDS (25.2-36.5); INR 0.9 (0.83-1.09); PROTHROMBIN TIME (PATIENT) 10.2 SEC (9.7-13.0)
[2024-08-29 13:06] LABS: CHLORIDE 86 mmol/L (98-107); SODIUM 121 mmol/L (136-145)
[2024-08-29 13:08] LABS: CALCIUM 10.1 mg/dL (8.5-10.1)
[2024-08-29 13:09] LABS: ALBUMIN 4.8 g/dl (3.4-5.0); BLOOD UREA NITROGEN 32.8 mg/dL (7-18); CO2 13 mmol/L (21-32); MAGNESIUM 3.2 mg/dL (1.8-2.4)
[2024-08-29 13:12] LABS: CREATININE 2.2 mg/dL (0.55-1.3); SGOT/AST 35 U/L (15-37); SGPT/ALT 66 U/L (13-61)
[2024-08-29 13:14] LABS: BILIRUBIN,TOTAL 0.9 mg/dL (0.2-1); TOT PROT 8.7 g/dl (6.4-8.2)
[2024-08-29 13:15] LABS: ALK PHOS 328 U/L (45-117)
[2024-08-29 13:25] LABS: ANION GAP 22 mmol/L (4-13); GLUCOSE,RANDOM 941 mg/dL (74-106); POTASSIUM 6.6 mmol/L (3.5-5.1)
[2024-08-29 13:29] LABS: VENOUS BASE EXCESS -13.5 mmol/L (-2-2); VENOUS O2 SATURATION 68.8 % (70-80); VENOUS PH 7.242 (7.310-7.410)
[2024-08-29] MEDS ORDERED: DEXTROSE 50%-WATER - 25 GM/50 ML VIAL IVPUSH PRN (13:29)
[2024-08-29] MEDS ORDERED: SODIUM ZIRCONIUM CYCLOSILICATE (LOKELMA) 5 GM PACKET PO SCH (13:30)
[2024-08-29] MEDS ORDERED: INSULIN REGULAR HUMAN 100 UNITS/ML *VIAL ONE (13:41)
[2024-08-29] MEDS ORDERED: CALCIUM GLUC IN NACL, ISO-OSM 1 GM/50 ML BAG IVPB ONE (13:41)
[2024-08-29] MEDS: CALCIUM GLUC IN NACL, ISO-OSM 1 GM/50 ML BAG IVPB ONE (13:45)
[2024-08-29] MEDS: INSULIN REGULAR HUMAN 100 UNITS/ML *VIAL* (FOR IVP) IVPUSH ONE (13:45)
[2024-08-29 14:08] LABS: URINE APPEARANCE CLEAR; URINE BILIRUBIN NEGATIVE (NEGATIVE); URINE COLOR YELLOW; URINE GLUCOSE (UA) 3+ (NEGATIVE); URINE KETONE 2+ (NEGATIVE); URINE LEUK ESTERASE NEGATIVE (NEGATIVE); URINE NITRITE NEGATIVE (NEGATIVE); URINE PROTEIN TRACE (NEGATIVE); URINE UROBILINOGEN 0.2 mg/dL (0.2-1.0)
[2024-08-29] MEDS: INSULIN REGULAR 100 UNITS in SODIUM CHLORIDE 99 ML IVPB SCH (15:23)
[2024-08-29] MEDS: SODIUM CHLORIDE 1,000 ML IV SCH (17:14)
[2024-08-29 17:23] LABS: CHLORIDE 97 mmol/L (98-107); SODIUM 129 mmol/L (136-145)
[2024-08-29 17:24] LABS: CALCIUM 9.2 mg/dL (8.5-10.1)
[2024-08-29 17:25] LABS: BLOOD UREA NITROGEN 32.4 mg/dL (7-18); CO2 17 mmol/L (21-32)
[2024-08-29 17:28] LABS: CREATININE 2.1 mg/dL (0.55-1.3)
[2024-08-29 17:40] LABS: ANION GAP 15 mmol/L (4-13); GLUCOSE,RANDOM 568 mg/dL (74-106); POTASSIUM 6.1 mmol/L (3.5-5.1)
[2024-08-29 19:08] VITALS: BMI 22.4
[2024-08-29] MEDS: CHLORHEXIDINE GLUCONATE 4% CLEANSER FOR DECOLONIZATION TP SCH (21:46)
[2024-08-29] MEDS: MUPIROCIN 2% TOPICAL OINTMENT FOR DECOLONIZATION NS SCH (21:46)
[2024-08-29] MEDS: DEXTROSE 5%-NORMAL SALINE 1,000 ML IV SCH (22:00)
[2024-08-29 22:30] LABS: POTASSIUM 4.2 mmol/L (3.5-5.1)
[2024-08-29 22:33] LABS: CALCIUM 10.5 mg/dL (8.5-10.1)
[2024-08-29 22:34] LABS: ALBUMIN 4.9 g/dl (3.4-5.0); BLOOD UREA NITROGEN 30.2 mg/dL (7-18); MAGNESIUM 2.9 mg/dL (1.8-2.4)
[2024-08-29 22:37] LABS: PHOSPHOROUS 2.6 mg/dL (2.5-4.9)
[2024-08-29 22:39] LABS: BILIRUBIN,TOTAL 0.9 mg/dL (0.2-1)
[2024-08-30 02:33] LABS: POTASSIUM 3.3 mmol/L (3.5-5.1)
[2024-08-30 02:36] LABS: BLOOD UREA NITROGEN 25.5 mg/dL (7-18); MAGNESIUM 2.3 mg/dL (1.8-2.4)
[2024-08-30 02:39] LABS: CREATININE 1.6 mg/dL (0.55-1.3); PHOSPHOROUS 1.9 mg/dL (2.5-4.9)
[2024-08-30 02:40] LABS: BILIRUBIN,TOTAL 0.6 mg/dL (0.2-1)
[2024-08-30 02:42] LABS: ALBUMIN 3.5 g/dl (3.4-5.0); CALCIUM 8.8 mg/dL (8.5-10.1); TOT PROT 6.4 g/dl (6.4-8.2)
[2024-08-30] MEDS: POTASSIUM CHLORIDE TABS 20 MEQ TABLET.ER (FP) PO ONE (03:16)
[2024-08-30] MEDS: INSULIN ASPART SLIDING SCALE (NOVOLOG) 1 VIAL SQ SCH (06:55)
[2024-08-30 07:39] LABS: BASO % 0.4 % (0-2.0); EOS % 1.4 % (0-4.5); HEMATOCRIT 41.1 % (35.4-49); HEMOGLOBIN 13.3 GM/dL (11.7-16.9); LYMPH % 32.2 % (8-40); MCHC 32.5 g/dl (32.0-35.9); MEAN CELL VOLUME 89.4 fl (80-96); MEAN PLT VOLUME 8.9 fl (7.5-11.1); MONO % 5.5 % (3.8-10.2); NEUT % 60.5 % (42.8-82.8); PLATELET COUNT 194 10^3/uL (134-434); RBC 4.59 M/mm3 (4.00-5.60); RDW 14.7 % (11.9-15.9); WHITE BLOOD COUNT 13.2 K/mm3 (4.0-10.0)
[2024-08-30 08:25] LABS: POTASSIUM 3.9 mmol/L (3.5-5.1)
[2024-08-30 08:32] LABS: ALBUMIN 3.5 g/dl (3.4-5.0); BLOOD UREA NITROGEN 23.8 mg/dL (7-18)
[2024-08-30 08:33] LABS: MAGNESIUM 2.4 mg/dL (1.8-2.4)
[2024-08-30 08:35] LABS: CREATININE 1.5 mg/dL (0.55-1.3)
[2024-08-30 08:36] LABS: PHOSPHOROUS 2.4 mg/dL (2.5-4.9)
[2024-08-30 08:37] LABS: BILIRUBIN,TOTAL 0.7 mg/dL (0.2-1); TOT PROT 6.2 g/dl (6.4-8.2)
[2024-08-30] MEDS: TAMSULOSIN HCL 0.4 MG CAP PO SCH (09:19)
[2024-08-30] MEDS: FINASTERIDE 5 MG TABLET (FP) PO SCH (09:19)
[2024-08-30] MEDS: INSULIN (LEVEMIR) 100 UNITS/ML UNITS SQ SCH (09:19)
[2024-08-30] MEDS: BICALUTAMIDE 50 MG TABLET (FP) PO SCH (09:19)
[2024-08-30] MEDS: FERROUS SO4 325 MG TABLET (FP) PO SCH (09:19)
[2024-08-30] MEDS: ENOXAPARIN NA (PORCINE) 40 MG/0.4 ML DISP.SYRIN SQ SCH (09:19)
[2024-08-30] MEDS: ACETAMINOPHEN 325 MG TABLET (FP) PO PRN (20:49)
[2024-08-30] MEDS: LEVALBUTEROL HCL 0.31 MG/3 ML VIAL.NEB IH PRN (21:58)
[2024-08-31 09:35] LABS: BASO % 0.2 % (0-2.0); EOS % 0.4 % (0-4.5); HEMATOCRIT 38.7 % (35.4-49); HEMOGLOBIN 13.2 GM/dL (11.7-16.9); LYMPH % 20.2 % (8-40); MCH 30.2 pg (25.7-33.7); MCHC 34.1 g/dl (32.0-35.9); MEAN CELL VOLUME 88.5 fl (80-96); MEAN PLT VOLUME 9.1 fl (7.5-11.1); MONO % 4.8 % (3.8-10.2); NEUT % 74.4 % (42.8-82.8); PLATELET COUNT 152 10^3/uL (134-434); RBC 4.37 M/mm3 (4.00-5.60); RDW 14.8 % (11.9-15.9); WHITE BLOOD COUNT 11.5 K/mm3 (4.0-10.0)
[2024-08-31 09:48] LABS: CALCIUM 9.2 mg/dL (8.5-10.1)
[2024-08-31 09:49] LABS: ALBUMIN 3.4 g/dl (3.4-5.0); BILIRUBIN,TOTAL 0.7 mg/dL (0.2-1)
[2024-08-31 09:51] LABS: TOT PROT 6.2 g/dl (6.4-8.2)
[2024-08-31 09:52] LABS: CREATININE 1.5 mg/dL (0.55-1.3)
[2024-08-31] MEDS ORDERED: INSULIN (LEVEMIR) 100 UNITS/ML UNITS SQ SCH (12:45)
[2024-08-31] MEDS: INSULIN ASPART SLIDING SCALE (NOVOLOG) 1 VIAL SQ SCH (16:35)
[2024-08-31] MEDS: INSULIN (LEVEMIR) 100 UNITS/ML UNITS SQ SCH (21:26)
[2024-09-01] MEDS: INSULIN (NOVOLOG) ASPART 100 UNITS/ML 10ML VIAL SQ SCH (06:38)
[2024-09-01] MEDS: TAMSULOSIN HCL 0.4 MG CAP PO SCH (08:39)
[2024-09-01] MEDS: ENOXAPARIN NA (PORCINE) 40 MG/0.4 ML DISP.SYRIN SQ SCH (09:25)
[2024-09-01] MEDS: BICALUTAMIDE 50 MG TABLET (FP) PO SCH (09:26)
[2024-09-01] MEDS: FINASTERIDE 5 MG TABLET (FP) PO SCH (09:26)
[2024-09-01 21:07] VITALS: RESP 20
[2024-09-02 05:49] VITALS: PULSE 56; TEMP 98.7
[2024-09-02 08:58] VITALS: BP 114/78
== END 2024-09-02 14:23 | disposition home or self-care (01) | DRG 420 ==
LOC: JER 11:05 → JERBED 15:35 → JICU 19:06 → J6S 08-30 21:28
PROVIDERS: ADMIT Internal Medicine Pulmonary Disease; ATTEND Internal Medicine
DX: E11.10 Type 2 diabetes mellitus with ketoacidosis without coma (principal); N17.9 Acute kidney failure, unspecified; C78.00 Secondary malignant neoplasm of unspecified lung; C79.51 Secondary malignant neoplasm of bone; E87.5 Hyperkalemia; J44.9 Chronic obstructive pulmonary disease, unspecified; N40.0 Benign prostatic hyperplasia without lower urinary tract symptoms; I10 Essential (primary) hypertension; F43.20 Adjustment disorder, unspecified; C61 Malignant neoplasm of prostate
CPT/HCPCS: 0241U-QW; 36415; 71045-TC-FY; 76775-TC; 80048; 80053; 81003; 82010; 82803; 82962; 83036; 83735; 84100; 84484; 85025; 85610; 85730; 86850; 86900; 86901; 87040; 87086; 87186; 87481; 93005; 93010; 99285-25

== ENCOUNTER 2024-09-05 11:26 | Day surgery (SDC) | payer OTHER ==
[2024-09-05] MEDS: SODIUM CHLORIDE 250 ML IV ONE ×2 (11:50)
[2024-09-05 12:09] LABS: CHLORIDE 102 mmol/L (98-107); POTASSIUM 4.4 mmol/L (3.5-5.1); SODIUM 133 mmol/L (136-145)
[2024-09-05 12:10] LABS: BASO % 0.3 % (0-2.0); EOS % 0.9 % (0-4.5); HEMATOCRIT 39.6 % (35.4-49); HEMOGLOBIN 12.9 GM/dL (11.7-16.9); MCH 29.5 pg (25.7-33.7); MCHC 32.5 g/dl (32.0-35.9); MEAN CELL VOLUME 90.7 fl (80-96); MONO % 6.2 % (3.8-10.2); NEUT % 68.6 % (42.8-82.8); PLATELET COUNT 220 10^3/uL (134-434); RBC 4.37 M/mm3 (4.00-5.60); RDW 14.9 % (11.9-15.9)
[2024-09-05 12:11] LABS: CALCIUM 9.5 mg/dL (8.5-10.1)
[2024-09-05 12:12] LABS: ALBUMIN 3.7 g/dl (3.4-5.0); ANION GAP 6 mmol/L (4-13); BLOOD UREA NITROGEN 19.8 mg/dL (7-18); CO2 25 mmol/L (21-32); GLUCOSE,RANDOM 349 mg/dL (74-106)
[2024-09-05 12:13] LABS: AMYLASE 192 U/L (25-115)
[2024-09-05 12:14] LABS: SGOT/AST 17 U/L (15-37); SGPT/ALT 46 U/L (13-61)
[2024-09-05 12:15] LABS: BILIRUBIN,DIRECT 0.1 mg/dL (0.0-0.2); CREATININE 1.3 mg/dL (0.55-1.3)
[2024-09-05 12:16] LABS: BILIRUBIN,TOTAL 0.5 mg/dL (0.2-1)
[2024-09-05 12:17] LABS: ALK PHOS 190 U/L (45-117)
[2024-09-05] MEDS: PORTA CATH FLUSH 10 ML IVPUSH PRN (13:10)
[2024-09-05] MEDS: SODIUM CHLORIDE IV ONE (13:15)
[2024-09-05] MEDS: DURVALUMAB IV ONE (13:15)
[2024-09-05 13:56] VITALS: RESP 18; TEMP 98.4
[2024-09-05 15:18] VITALS: BP 113/59; PULSE 75
== END 2024-09-05 14:00 | disposition home or self-care (01) ==
LOC: J7W 11:26 → JONCCHEMO 11:26
PROVIDERS: ATTEND Internal Medicine Hematology & Oncology
PROC: 3E033GC Introduction of Other Therapeutic Substance into Peripheral Vein, Percutaneous Approach (ICD-10-PCS; principal; 2024-09-05)
DX: Z53.09 Procedure and treatment not carried out because of other contraindication (principal)
CPT/HCPCS: 36415; 80048; 80076; 82150; 82550; 82553; 83690; 84439; 84443; 85025

== ENCOUNTER 2024-10-03 10:24 | Day surgery (SDC) | payer OTHER ==
[2024-10-03 11:42] LABS: BASO % 0.2 % (0-2.0); EOS % 0.4 % (0-4.5); HEMATOCRIT 38.6 % (35.4-49); HEMOGLOBIN 12.8 GM/dL (11.7-16.9); LYMPH % 21.6 % (8-40); MCH 30.4 pg (25.7-33.7); MCHC 33.2 g/dl (32.0-35.9); MEAN CELL VOLUME 91.5 fl (80-96); MEAN PLT VOLUME 8.8 fl (7.5-11.1); MONO % 6.5 % (3.8-10.2); NEUT % 71.3 % (42.8-82.8); PLATELET COUNT 258 10^3/uL (134-434); RBC 4.22 M/mm3 (4.00-5.60); RDW 15.2 % (11.9-15.9); WHITE BLOOD COUNT 10.1 K/mm3 (4.0-10.0)
[2024-10-03 12:08] LABS: CHLORIDE 101 mmol/L (98-107); POTASSIUM 4.2 mmol/L (3.5-5.1); SODIUM 134 mmol/L (136-145)
[2024-10-03 12:12] LABS: ALBUMIN 3.6 g/dl (3.4-5.0); ANION GAP 9 mmol/L (4-13); BLOOD UREA NITROGEN 23.2 mg/dL (7-18); CO2 24 mmol/L (21-32)
[2024-10-03 12:13] LABS: AMYLASE 159 U/L (25-115)
[2024-10-03 12:15] LABS: BILIRUBIN,DIRECT 0.2 mg/dL (0.0-0.2); CREATININE 1.4 mg/dL (0.55-1.3); SGOT/AST 15 U/L (15-37); SGPT/ALT 22 U/L (13-61)
[2024-10-03 12:16] LABS: GLUCOSE,RANDOM 498 mg/dL (74-106); TOT PROT 6.8 g/dl (6.4-8.2)
[2024-10-03 12:17] LABS: BILIRUBIN,TOTAL 0.5 mg/dL (0.2-1)
[2024-10-03 12:26] LABS: ALK PHOS 208 U/L (45-117)
[2024-10-03] MEDS: SODIUM CHLORIDE 250 ML IV ONE (13:07)
[2024-10-03] MEDS ORDERED: INSULIN ASPART SLIDING SCALE (NOVOLOG) 1 VIAL SQ ONE (13:11)
[2024-10-03] MEDS: SODIUM CHLORIDE IV ONE (13:17)
[2024-10-03] MEDS: DURVALUMAB IV ONE (13:17)
[2024-10-03] MEDS: INSULIN (NOVOLOG) ASPART 100 UNITS/ML 10ML VIAL SQ ONE (13:30)
[2024-10-03] MEDS: PORTA CATH FLUSH 10 ML IVPUSH PRN (14:15)
[2024-10-03 14:43] VITALS: RESP 20; TEMP 97.8
[2024-10-03 14:53] VITALS: BP 104/67; PULSE 83
== END 2024-10-03 15:00 | disposition home or self-care (01) ==
LOC: JONCCHEMO 10:24 → J7W 10:25 → JONCCHEMO 15:00
PROVIDERS: ATTEND Internal Medicine Hematology & Oncology
DX: Z51.11 Encounter for antineoplastic chemotherapy (principal); C34.32 Malignant neoplasm of lower lobe, left bronchus or lung
CPT/HCPCS: 36415; 80048; 80076; 82150; 82550; 83690; 84439; 84443; 85025; 96413; J9173

== ENCOUNTER 2024-10-07 15:23 | Day surgery (SDC) | payer OTHER ==
[2024-10-07] MEDS: LEUPROLIDE ACETATE (ELIGARD) 22.5 MG SYRINGE SQ ONE (15:47)
[2024-10-07 16:11] VITALS: BP 112/72; PULSE 91; RESP 18; TEMP 97.5
== END 2024-10-07 16:00 | disposition home or self-care (01) ==
LOC: JONCCHEMO 15:23 → J7W 15:24 → JONCCHEMO 16:00
PROVIDERS: ATTEND Internal Medicine Hematology & Oncology
PROC: 3E013GC Introduction of Other Therapeutic Substance into Subcutaneous Tissue, Percutaneous Approach (ICD-10-PCS; principal; 2024-10-07)
DX: C61 Malignant neoplasm of prostate (principal)
CPT/HCPCS: 96372; J9217

== ENCOUNTER 2024-10-17 11:00 | Day surgery (SDC) | payer OTHER ==
[2024-10-17 11:15] LABS: BASO % 0.3 % (0-2.0); HEMATOCRIT 38.2 % (35.4-49); HEMOGLOBIN 12.8 GM/dL (11.7-16.9); LYMPH % 16.7 % (8-40); MCHC 33.5 g/dl (32.0-35.9); MEAN CELL VOLUME 92.5 fl (80-96); MEAN PLT VOLUME 9.1 fl (7.5-11.1); MONO % 5.5 % (3.8-10.2); NEUT % 76.5 % (42.8-82.8); PLATELET COUNT 193 10^3/uL (134-434); RBC 4.13 M/mm3 (4.00-5.60); RDW 14.6 % (11.9-15.9); WHITE BLOOD COUNT 11.9 K/mm3 (4.0-10.0)
[2024-10-17 11:57] LABS: CHLORIDE 102 mmol/L (98-107); SODIUM 134 mmol/L (136-145)
[2024-10-17 12:00] LABS: ALBUMIN 3.5 g/dl (3.4-5.0); AMYLASE 144 U/L (25-115); ANION GAP 9 mmol/L (4-13); BLOOD UREA NITROGEN 22.2 mg/dL (7-18); CALCIUM 8.7 mg/dL (8.5-10.1); CO2 23 mmol/L (21-32); GLUCOSE,RANDOM 409 mg/dL (74-106)
[2024-10-17 12:03] LABS: BILIRUBIN,DIRECT 0.1 mg/dL (0.0-0.2); CREATININE 1.5 mg/dL (0.55-1.3); SGOT/AST 18 U/L (15-37); SGPT/ALT 31 U/L (13-61)
[2024-10-17 12:05] LABS: BILIRUBIN,TOTAL 0.5 mg/dL (0.2-1); TOT PROT 6.8 g/dl (6.4-8.2)
[2024-10-17 12:06] LABS: ALK PHOS 182 U/L (45-117)
[2024-10-17] MEDS: INSULIN (NOVOLOG) ASPART 100 UNITS/ML 10ML VIAL SQ ONE (12:28)
[2024-10-17] MEDS: SODIUM CHLORIDE IV ONE (12:41)
[2024-10-17] MEDS: DURVALUMAB IV ONE (12:41)
[2024-10-17] MEDS: PORTA CATH FLUSH 10 ML IVPUSH PRN (14:10)
[2024-10-17 14:50] VITALS: RESP 18; TEMP 98.2
[2024-10-17 14:55] VITALS: BP 112/62; PULSE 91
== END 2024-10-17 14:20 | disposition home or self-care (01) ==
LOC: JONCCHEMO 11:00
PROVIDERS: ATTEND Internal Medicine Hematology & Oncology
PROC: 3E04305 Introduction of Other Antineoplastic into Central Vein, Percutaneous Approach (ICD-10-PCS; principal; 2024-10-17)
PROC: 3E013VG Introduction of Insulin into Subcutaneous Tissue, Percutaneous Approach (ICD-10-PCS; 2024-10-17)
DX: Z51.11 Encounter for antineoplastic chemotherapy (principal); C61 Malignant neoplasm of prostate; E11.9 Type 2 diabetes mellitus without complications; Z79.4 Long term (current) use of insulin
CPT/HCPCS: 36415; 80048; 80076; 82150; 82550; 82962; 83690; 84439; 84443; 85025; 96372; 96413; J9173

== ENCOUNTER 2024-10-31 10:22 | Day surgery (SDC) | payer OTHER ==
[2024-10-31 11:09] LABS: BASO % 0.7 % (0-2.0); EOS % 0.8 % (0-4.5); HEMATOCRIT 41.5 % (35.4-49); HEMOGLOBIN 13.4 GM/dL (11.7-16.9); MCH 30.5 pg (25.7-33.7); MCHC 32.2 g/dl (32.0-35.9); MEAN CELL VOLUME 94.8 fl (80-96); MEAN PLT VOLUME 8.6 fl (7.5-11.1); MONO % 5.2 % (3.8-10.2); NEUT % 75.3 % (42.8-82.8); PLATELET COUNT 221 10^3/uL (134-434); RBC 4.38 M/mm3 (4.00-5.60); WHITE BLOOD COUNT 11.9 K/mm3 (4.0-10.0)
[2024-10-31] MEDS: SODIUM CHLORIDE 250 ML IV ONE (11:25)
[2024-10-31 11:29] LABS: CHLORIDE 107 mmol/L (98-107); POTASSIUM 4.3 mmol/L (3.5-5.1); SODIUM 139 mmol/L (136-145)
[2024-10-31 11:34] LABS: ALBUMIN 3.8 g/dl (3.4-5.0); ANION GAP 8 mmol/L (4-13); BLOOD UREA NITROGEN 19.2 mg/dL (7-18); CALCIUM 9.3 mg/dL (8.5-10.1); CO2 24 mmol/L (21-32); GLUCOSE,RANDOM 236 mg/dL (74-106)
[2024-10-31 11:35] LABS: AMYLASE 167 U/L (25-115)
[2024-10-31 11:37] LABS: BILIRUBIN,DIRECT 0.2 mg/dL (0.0-0.2); CREATININE 1.3 mg/dL (0.55-1.3); SGOT/AST 19 U/L (15-37); SGPT/ALT 35 U/L (13-61)
[2024-10-31 11:38] LABS: BILIRUBIN,TOTAL 0.6 mg/dL (0.2-1)
[2024-10-31 11:39] LABS: ALK PHOS 192 U/L (45-117)
[2024-10-31] MEDS: SODIUM CHLORIDE IV ONE (13:20)
[2024-10-31] MEDS: DURVALUMAB IV ONE (13:20)
[2024-10-31] MEDS: PORTA CATH FLUSH 10 ML IVPUSH PRN (14:30)
[2024-10-31 15:24] VITALS: TEMP 98
[2024-10-31 15:35] VITALS: BP 96/60; PULSE 84; RESP 18
== END 2024-10-31 15:00 | disposition home or self-care (01) ==
LOC: JONCCHEMO 10:22 → J7W 10:23 → JONCCHEMO 15:00
PROVIDERS: ATTEND Internal Medicine Hematology & Oncology
DX: Z51.11 Encounter for antineoplastic chemotherapy (principal); C61 Malignant neoplasm of prostate
CPT/HCPCS: 36415; 80048; 80076; 82150; 82550; 83690; 84439; 84443; 85025; 96413; J9173

== ENCOUNTER 2024-10-31 22:14 | Emergency (ER) | payer OTHER ==
[2024-10-31 22:28] VITALS: RESP 18; BMI 21.9
[2024-10-31] MEDS ORDERED: KETOROLAC TROMETHAMINE 15 MG/ML VIAL ONE (22:34)
[2024-10-31 22:58] LABS: BASO % 0.6 % (0-2.0); EOS % 1.1 % (0-4.5); HEMATOCRIT 42.2 % (35.4-49); HEMOGLOBIN 13.9 GM/dL (11.7-16.9); LYMPH % 26.8 % (8-40); MCH 30.9 pg (25.7-33.7); MCHC 32.9 g/dl (32.0-35.9); MEAN CELL VOLUME 93.8 fl (80-96); MEAN PLT VOLUME 8.4 fl (7.5-11.1); MONO % 6.1 % (3.8-10.2); NEUT % 65.4 % (42.8-82.8); PLATELET COUNT 211 10^3/uL (134-434); RDW 14.5 % (11.9-15.9); WHITE BLOOD COUNT 9.7 K/mm3 (4.0-10.0)
[2024-10-31] MEDS: KETOROLAC TROMETHAMINE 15 MG/ML VIAL IVPUSH ONE (23:01)
[2024-10-31] MEDS ORDERED: HYDROmorphone HCL CARPU-JECT 2 MG/1 ML DISP.SYRIN ONE (23:05)
[2024-10-31] MEDS ORDERED: ONDANSETRON 4 MG/2 ML VIAL ONE (23:05)
[2024-10-31] MEDS: morphine CARPU-JECT 2 MG/1 ML DISP.SYRIN IVPUSH ONE (23:09)
[2024-10-31] MEDS: ONDANSETRON 4 MG/2 ML VIAL IVPUSH ONE (23:09)
[2024-10-31] MEDS: HYDROmorphone HCl 2 MG/ML VIAL IVPUSH ONE (23:09)
[2024-10-31 23:18] LABS: POTASSIUM 4.4 mmol/L (3.5-5.1)
[2024-10-31 23:20] LABS: ALBUMIN 3.9 g/dl (3.4-5.0); BLOOD UREA NITROGEN 18.3 mg/dL (7-18); CALCIUM 9.9 mg/dL (8.5-10.1)
[2024-10-31 23:23] LABS: CREATININE 1.3 mg/dL (0.55-1.3)
[2024-10-31 23:24] LABS: BILIRUBIN,TOTAL 0.7 mg/dL (0.2-1)
[2024-10-31 23:25] LABS: TOT PROT 7.2 g/dl (6.4-8.2)
[2024-10-31 23:26] LABS: LACTIC ACID 2.1 mmol/L (0.4-2.0)
[2024-11-01 00:13] LABS: HIV INTERPRETATION NEGATIVE (NEGATIVE)
[2024-11-01] MEDS: SODIUM CHLORIDE 0.9% 500 ML INFUS.BAG IV ONE (00:17)
[2024-11-01] MEDS ORDERED: LIDOCAINE HCL 2% JELLY 11 ML TP ONE (02:07)
[2024-11-01 03:07] LABS: URINE APPEARANCE CLEAR; URINE BILIRUBIN NEGATIVE (NEGATIVE); URINE COLOR YELLOW; URINE GLUCOSE (UA) 1+ (NEGATIVE); URINE KETONE NEGATIVE (NEGATIVE); URINE LEUK ESTERASE NEGATIVE (NEGATIVE); URINE NITRITE NEGATIVE (NEGATIVE); URINE PROTEIN NEGATIVE (NEGATIVE); URINE UROBILINOGEN 0.2 mg/dL (0.2-1.0)
[2024-11-01 04:11] VITALS: BP 148/82; PULSE 76; TEMP 98
== END 2024-11-01 04:11 | disposition home or self-care (01) ==
LOC: JER 22:14
PROC: 3E033NZ Introduction of Analgesics, Hypnotics, Sedatives into Peripheral Vein, Percutaneous Approach (ICD-10-PCS; principal; 2024-10-31)
PROC: 3E0333Z Introduction of Anti-inflammatory into Peripheral Vein, Percutaneous Approach (ICD-10-PCS; 2024-10-31)
PROC: 3E033GC Introduction of Other Therapeutic Substance into Peripheral Vein, Percutaneous Approach (ICD-10-PCS; 2024-10-31)
DX: K59.09 Other constipation (principal); R10.84 Generalized abdominal pain; R33.9 Retention of urine, unspecified; R11.0 Nausea
CPT/HCPCS: 36415; 74177-TC; 80053; 81003; 83605; 83690; 85025; 86803; 87389; 93005; 93010; 99285-25; Q9967

== ENCOUNTER 2024-11-01 14:38 | Emergency (ER) | payer OTHER ==
[2024-11-01 14:44] VITALS: BMI 21.7
[2024-11-01] MEDS ORDERED: ACETAMINOPHEN INJECTION 100 ML ONE (15:26)
[2024-11-01] MEDS ORDERED: ONDANSETRON 4 MG/2 ML VIAL ONE (15:26)
[2024-11-01] MEDS ORDERED: FAMOTIDINE 20 MG/50 ML IVPB 20 MG/50 ML MG IVPB ONE (15:26)
[2024-11-01] MEDS: ONDANSETRON 4 MG/2 ML VIAL IVPUSH ONE (15:52)
[2024-11-01] MEDS: ACETAMINOPHEN 1000 MG/100 ML BAG IVPB ONE (15:52)
[2024-11-01] MEDS: SODIUM CHLORIDE 0.9% 500 ML INFUS.BAG IV ONE (15:52)
[2024-11-01 15:58] LABS: BASO % 0.3 % (0-2.0); EOS % 0.4 % (0-4.5); HEMATOCRIT 42.1 % (35.4-49); HEMOGLOBIN 14.1 GM/dL (11.7-16.9); LYMPH % 14.3 % (8-40); MCHC 33.4 g/dl (32.0-35.9); MEAN CELL VOLUME 92.8 fl (80-96); MEAN PLT VOLUME 8.2 fl (7.5-11.1); MONO % 4.3 % (3.8-10.2); NEUT % 80.7 % (42.8-82.8); PLATELET COUNT 210 10^3/uL (134-434); RBC 4.53 M/mm3 (4.00-5.60); RDW 14.3 % (11.9-15.9); WHITE BLOOD COUNT 9.2 K/mm3 (4.0-10.0)
[2024-11-01] MEDS: FAMOTIDINE 20 MG/50 ML IVPB 20 MG/50 ML MG IVPB ONE (16:00)
[2024-11-01 16:04] LABS: INR 1.02 (0.83-1.09); PROTHROMBIN TIME (PATIENT) 11.1 SEC (9.7-13.0)
[2024-11-01 16:07] LABS: ACTIVATED PTT 20.6 SECONDS (25.2-36.5)
[2024-11-01 16:17] LABS: EPI CELLS 2 /uL (0-25.1); HYALINE CASTS 0 /uL (0-3.1); POTASSIUM 3.7 mmol/L (3.5-5.1); URINE APPEARANCE CLEAR; URINE BACTERIA 24 /uL (0-1359); URINE BILIRUBIN NEGATIVE (NEGATIVE); URINE COLOR YELLOW; URINE GLUCOSE (UA) 3+ (NEGATIVE); URINE KETONE 1+ (NEGATIVE); URINE LEUK ESTERASE NEGATIVE (NEGATIVE); URINE NITRITE NEGATIVE (NEGATIVE); URINE PROTEIN TRACE (NEGATIVE); URINE UROBILINOGEN 0.2 mg/dL (0.2-1.0); URINE WBC 18 /uL (0-25.8)
[2024-11-01 16:19] LABS: ALBUMIN 4.1 g/dl (3.4-5.0); CALCIUM 9.9 mg/dL (8.5-10.1)
[2024-11-01 16:22] LABS: CREATININE 1.3 mg/dL (0.55-1.3); PHOSPHOROUS 3.2 mg/dL (2.5-4.9)
[2024-11-01 16:24] LABS: BILIRUBIN,TOTAL 0.9 mg/dL (0.2-1); TOT PROT 7.3 g/dl (6.4-8.2)
[2024-11-01 16:37] LABS: URINE RBC 341.2 /uL (0-23.9)
[2024-11-01] MEDS ORDERED: KETOROLAC TROMETHAMINE 15 MG/ML VIAL ONE (18:36)
[2024-11-01 18:42] VITALS: BP 170/89; PULSE 75; RESP 20; TEMP 98.8
[2024-11-01] MEDS: KETOROLAC TROMETHAMINE 15 MG/ML VIAL IVPUSH ONE (18:42)
[2024-11-01] MEDS ORDERED: METOPROLOL TARTRATE 5 MG/5 ML VIAL ONE (20:09)
== END 2024-11-02 00:49 | disposition home or self-care (01) ==
LOC: JER 14:38
PROC: 3E033GC Introduction of Other Therapeutic Substance into Peripheral Vein, Percutaneous Approach (ICD-10-PCS; principal; 2024-11-01)
PROC: 3E033NZ Introduction of Analgesics, Hypnotics, Sedatives into Peripheral Vein, Percutaneous Approach (ICD-10-PCS; 2024-11-01)
PROC: 3E0333Z Introduction of Anti-inflammatory into Peripheral Vein, Percutaneous Approach (ICD-10-PCS; 2024-11-01)
PROC: 3E033GC Introduction of Other Therapeutic Substance into Peripheral Vein, Percutaneous Approach (ICD-10-PCS; 2024-11-01)
DX: R10.84 Generalized abdominal pain (principal); R11.0 Nausea; R33.9 Retention of urine, unspecified; R07.2 Precordial pain; M79.661 Pain in right lower leg; C61 Malignant neoplasm of prostate
CPT/HCPCS: 0241U-QW; 36415; 71045-TC-FY; 71275-TC; 80053; 81003; 83605; 83690; 83735; 84100; 84484; 85025; 85379; 85610; 85730; 87086; 93005; 93010; 93971-TC; 99285-25; J0131; Q9967

== ENCOUNTER 2024-11-14 11:58 | Day surgery (SDC) | payer OTHER ==
[2024-11-14 12:08] LABS: HEMATOCRIT 39.3 % (40.1-51.0); HEMOGLOBIN 12.7 g/dL (13.7-17.5)
[2024-11-14 12:09] LABS: ABSOLUTE IMMATURE GRANULOCYTES 0.05 x10^3/uL (0.0-0.031); BASOPHILS # 0.07 x10^3/uL (0.01-0.08); EOSINOPHIL % 0.9 % (0.8-7.0); EOSINOPHILS # 0.12 x10^3/uL (0.04-0.54); MCHC 32.3 g/dl (32.3-36.5); MEAN CELL VOLUME 95.6 fl (79.0-92.2); MEAN PLT VOLUME 10.5 fl (9.4-12.4); MONOCYTE # 0.89 x10^3/uL (0.30-0.82); MONOCYTE % 6.9 % (5.3-12.2); PLATELET COUNT 224 x10^3/uL (163-337); RDW 13.5 % (12.2-16.4)
[2024-11-14 12:29] LABS: CHLORIDE 108 mmol/L (98-107); SODIUM 138 mmol/L (136-145)
[2024-11-14 12:32] LABS: ANION GAP 10 mmol/L (4-13); BLOOD UREA NITROGEN 19.7 mg/dL (7-18); CALCIUM 9.2 mg/dL (8.5-10.1); CO2 20 mmol/L (21-32); GLUCOSE,RANDOM 200 mg/dL (74-106)
[2024-11-14 12:33] LABS: ALBUMIN 3.6 g/dl (3.4-5.0); AMYLASE 148 U/L (25-115)
[2024-11-14 12:35] LABS: BILIRUBIN,DIRECT 0.2 mg/dL (0.0-0.2); CREATININE 1.1 mg/dL (0.55-1.3); SGOT/AST 19 U/L (15-37); SGPT/ALT 37 U/L (13-61)
[2024-11-14 12:36] LABS: BILIRUBIN,TOTAL 0.5 mg/dL (0.2-1)
[2024-11-14 12:37] LABS: TOT PROT 6.8 g/dl (6.4-8.2)
[2024-11-14 12:38] LABS: ALK PHOS 172 U/L (45-117)
[2024-11-14] MEDS: SODIUM CHLORIDE 250 ML IV ONE (12:57)
[2024-11-14] MEDS: DURVALUMAB IV ONE (13:40)
[2024-11-14] MEDS: SODIUM CHLORIDE IV ONE (13:40)
[2024-11-14] MEDS: PORTA CATH FLUSH 10 ML IVPUSH PRN (14:40)
[2024-11-14 16:11] VITALS: TEMP 98.2
[2024-11-14 16:14] VITALS: BP 107/67; PULSE 91
[2024-11-14 16:15] VITALS: RESP 18
== END 2024-11-14 14:45 | disposition home or self-care (01) ==
LOC: JONCCHEMO 11:58
PROVIDERS: ATTEND Internal Medicine Hematology & Oncology
DX: Z51.11 Encounter for antineoplastic chemotherapy (principal); C34.32 Malignant neoplasm of lower lobe, left bronchus or lung; Z85.46 Personal history of malignant neoplasm of prostate
CPT/HCPCS: 36415; 80048; 80076; 82150; 82550; 83690; 84439; 84443; 85025; 96413; J9173

== ENCOUNTER 2024-11-28 11:45 | Day surgery (SDC) | payer OTHER ==
[2024-11-28] MEDS: SODIUM CHLORIDE 250 ML IV ONE (11:55)
[2024-11-28 12:49] LABS: ABSOLUTE IMMATURE GRANULOCYTES 0.05 x10^3/uL (0.0-0.031); BASOPHILS # 0.08 x10^3/uL (0.01-0.08); EOSINOPHIL % 0.8 % (0.8-7.0); HEMATOCRIT 38.8 % (40.1-51.0); HEMOGLOBIN 12.7 g/dL (13.7-17.5); MCHC 32.7 g/dl (32.3-36.5); MEAN CELL VOLUME 95.8 fl (79.0-92.2); MEAN PLT VOLUME 10.8 fl (9.4-12.4); MONOCYTE # 0.89 x10^3/uL (0.30-0.82); MONOCYTE % 6.9 % (5.3-12.2); PLATELET COUNT 201 x10^3/uL (163-337); RDW 13.2 % (12.2-16.4)
[2024-11-28 13:17] LABS: CHLORIDE 106 mmol/L (98-107); POTASSIUM 3.7 mmol/L (3.5-5.1); SODIUM 137 mmol/L (136-145)
[2024-11-28 13:18] LABS: CALCIUM 9.4 mg/dL (8.5-10.1)
[2024-11-28 13:19] LABS: ANION GAP 8 mmol/L (4-13); CO2 23 mmol/L (21-32); GLUCOSE,RANDOM 299 mg/dL (74-106)
[2024-11-28 13:22] LABS: CREATININE 1.3 mg/dL (0.55-1.3)
[2024-11-28 13:28] LABS: ALBUMIN 3.7 g/dl (3.4-5.0)
[2024-11-28 13:32] LABS: BILIRUBIN,DIRECT 0.2 mg/dL (0.0-0.2)
[2024-11-28 13:33] LABS: BILIRUBIN,TOTAL 0.6 mg/dL (0.2-1); TOT PROT 6.6 g/dl (6.4-8.2)
[2024-11-28] MEDS: SODIUM CHLORIDE IV ONE (13:55)
[2024-11-28] MEDS: DURVALUMAB IV ONE (13:55)
[2024-11-28] MEDS: PORTA CATH FLUSH 10 ML IVPUSH PRN (14:55)
[2024-11-28 16:17] VITALS: BP 113/71; PULSE 94; RESP 20; TEMP 98.1
== END 2024-11-28 15:15 | disposition home or self-care (01) ==
LOC: JONCCHEMO 11:45
PROVIDERS: ATTEND Internal Medicine Hematology & Oncology
DX: Z51.11 Encounter for antineoplastic chemotherapy (principal); C34.92 Malignant neoplasm of unspecified part of left bronchus or lung
CPT/HCPCS: 36415; 80048; 80076; 82150; 82550; 83690; 84439; 84443; 85025; 96413; J9173

== ENCOUNTER 2024-12-12 10:00 | Day surgery (SDC) | payer OTHER ==
[2024-12-12 10:54] LABS: ABSOLUTE IMMATURE GRANULOCYTES 0.04 x10^3/uL (0.0-0.031); BASOPHILS # 0.06 x10^3/uL (0.01-0.08); EOSINOPHIL % 1.2 % (0.8-7.0); EOSINOPHILS # 0.14 x10^3/uL (0.04-0.54); HEMATOCRIT 39.4 % (40.1-51.0); HEMOGLOBIN 12.6 g/dL (13.7-17.5); MEAN PLT VOLUME 10.1 fl (9.4-12.4); PLATELET COUNT 256 x10^3/uL (163-337); RDW 12.6 % (12.2-16.4)
[2024-12-12] MEDS: SODIUM CHLORIDE 250 ML IV ONE (10:57)
[2024-12-12 11:30] LABS: POTASSIUM 4.1 mmol/L (3.5-5.1)
[2024-12-12 11:32] LABS: ALBUMIN 3.7 g/dl (3.4-5.0); CALCIUM 9.9 mg/dL (8.5-10.1)
[2024-12-12 11:35] LABS: BILIRUBIN,DIRECT 0.1 mg/dL (0.0-0.2); CREATININE 1.3 mg/dL (0.55-1.3)
[2024-12-12 11:37] LABS: BILIRUBIN,TOTAL 0.4 mg/dL (0.2-1); TOT PROT 6.9 g/dl (6.4-8.2)
[2024-12-12] MEDS: DURVALUMAB IV ONE (12:00)
[2024-12-12] MEDS: SODIUM CHLORIDE IV ONE (12:00)
[2024-12-12] MEDS ORDERED: PORTA CATH FLUSH 10 ML IVPUSH PRN (15:03)
[2024-12-12 15:04] VITALS: BP 101/69; PULSE 89; RESP 20; TEMP 98.2
== END 2024-12-12 13:30 | disposition home or self-care (01) ==
LOC: JONCCHEMO 10:00
PROVIDERS: ATTEND Internal Medicine Hematology & Oncology
DX: Z51.11 Encounter for antineoplastic chemotherapy (principal); C34.92 Malignant neoplasm of unspecified part of left bronchus or lung
CPT/HCPCS: 36415; 80048; 80076; 82150; 82550; 83690; 84439; 84443; 85025; 96413; J9173

== ENCOUNTER 2024-12-26 10:17 | Day surgery (SDC) | payer OTHER ==
[2024-12-26 11:10] LABS: ABSOLUTE IMMATURE GRANULOCYTES 0.03 x10^3/uL (0.0-0.031); BASOPHILS # 0.08 x10^3/uL (0.01-0.08); EOSINOPHIL % 1.6 % (0.8-7.0); EOSINOPHILS # 0.17 x10^3/uL (0.04-0.54); HEMOGLOBIN 12.6 g/dL (13.7-17.5); MCHC 32.3 g/dl (32.3-36.5); MEAN CELL VOLUME 96.8 fl (79.0-92.2); MEAN PLT VOLUME 10.2 fl (9.4-12.4); MONOCYTE # 0.91 x10^3/uL (0.30-0.82); MONOCYTE % 8.8 % (5.3-12.2); PLATELET COUNT 197 x10^3/uL (163-337); RDW 12.5 % (12.2-16.4)
[2024-12-26 11:29] LABS: CHLORIDE 110 mmol/L (98-107); POTASSIUM 3.9 mmol/L (3.5-5.1); SODIUM 139 mmol/L (136-145)
[2024-12-26] MEDS: SODIUM CHLORIDE 250 ML IV ONE (11:30)
[2024-12-26 11:32] LABS: ANION GAP 7 mmol/L (4-13); CALCIUM 9.8 mg/dL (8.5-10.1); CO2 23 mmol/L (21-32); GLUCOSE,RANDOM 145 mg/dL (74-106)
[2024-12-26 11:34] LABS: CREATININE 1.4 mg/dL (0.55-1.3)
[2024-12-26 11:36] LABS: ALBUMIN 3.6 g/dl (3.4-5.0)
[2024-12-26 11:38] LABS: BILIRUBIN,DIRECT 0.1 mg/dL (0.0-0.2)
[2024-12-26 11:41] LABS: BILIRUBIN,TOTAL 0.3 mg/dL (0.2-1); TOT PROT 6.8 g/dl (6.4-8.2)
[2024-12-26] MEDS: DURVALUMAB IV ONE (13:07)
[2024-12-26] MEDS: SODIUM CHLORIDE IV ONE (13:07)
[2024-12-26] MEDS: PORTA CATH FLUSH 10 ML IVPUSH PRN (14:10)
[2024-12-26 17:04] VITALS: BP 122/69; PULSE 76; RESP 20; TEMP 98.3
== END 2024-12-26 17:08 | disposition home or self-care (01) ==
LOC: JONCCHEMO 10:17 → J7W 10:18 → JONCCHEMO 17:08
PROVIDERS: ATTEND Internal Medicine Hematology & Oncology
DX: Z51.11 Encounter for antineoplastic chemotherapy (principal); C34.92 Malignant neoplasm of unspecified part of left bronchus or lung
CPT/HCPCS: 36415; 80048; 80076; 82150; 82550; 82553; 83690; 84439; 84443; 85025; 96413; J9173

== ENCOUNTER 2025-01-02 02:44 | Inpatient (IN) | payer OTHER ==
[2025-01-02 03:54] LABS: ABSOLUTE IMMATURE GRANULOCYTES 0.09 x10^3/uL (0.0-0.031); BASOPHILS # 0.09 x10^3/uL (0.01-0.08); EOSINOPHIL % 0.7 % (0.8-7.0); EOSINOPHILS # 0.11 x10^3/uL (0.04-0.54); HEMATOCRIT 41.8 % (40.1-51.0); HEMOGLOBIN 13.2 g/dL (13.7-17.5); MCHC 31.6 g/dl (32.3-36.5); MEAN CELL VOLUME 97.9 fl (79.0-92.2); MEAN PLT VOLUME 9.9 fl (9.4-12.4); MONOCYTE # 0.96 x10^3/uL (0.30-0.82); MONOCYTE % 5.9 % (5.3-12.2); PLATELET COUNT 241 x10^3/uL (163-337); RDW 12.9 % (12.2-16.4)
[2025-01-02 04:01] LABS: INR 0.94 (0.83-1.09); PROTHROMBIN TIME (PATIENT) 10.2 SEC (9.7-13.0)
[2025-01-02 04:04] LABS: ACTIVATED PTT 29.7 SECONDS (25.2-36.5)
[2025-01-02 04:25] LABS: POTASSIUM 4.4 mmol/L (3.5-5.1)
[2025-01-02 04:28] LABS: ALBUMIN 4.1 g/dl (3.4-5.0); BLOOD UREA NITROGEN 26.5 mg/dL (7-18); CALCIUM 9.8 mg/dL (8.5-10.1); MAGNESIUM 2.2 mg/dL (1.8-2.4)
[2025-01-02 04:31] LABS: CREATININE 1.6 mg/dL (0.55-1.3)
[2025-01-02 04:32] LABS: PHOSPHOROUS 4.6 mg/dL (2.5-4.9)
[2025-01-02 04:33] LABS: BILIRUBIN,TOTAL 0.3 mg/dL (0.2-1); TOT PROT 7.3 g/dl (6.4-8.2)
[2025-01-02 05:00] LABS: LACTIC ACID 2.4 mmol/L (0.4-2.0)
[2025-01-02] MEDS ORDERED: ONDANSETRON 4 MG/2 ML VIAL ONE (05:15)
[2025-01-02] MEDS ORDERED: ACETAMINOPHEN INJECTION 100 ML ONE (05:15)
[2025-01-02] MEDS: SODIUM CHLORIDE 0.9% 500 ML INFUS.BAG IV ONE ×2 (05:25→08:01)
[2025-01-02] MEDS: ACETAMINOPHEN 1000 MG/100 ML BAG IVPB ONE (05:25)
[2025-01-02] MEDS: ONDANSETRON 4 MG/2 ML VIAL IVPUSH ONE (05:26)
[2025-01-02 06:46] VITALS: RESP 18
[2025-01-02] MEDS ORDERED: LIDOCAINE 5% TOPICAL PATCH ONE (07:56)
[2025-01-02 08:02] LABS: URINE APPEARANCE CLEAR; URINE BILIRUBIN NEGATIVE (NEGATIVE); URINE COLOR YELLOW; URINE GLUCOSE (UA) NEGATIVE (NEGATIVE); URINE KETONE NEGATIVE (NEGATIVE); URINE LEUK ESTERASE NEGATIVE (NEGATIVE); URINE NITRITE NEGATIVE (NEGATIVE); URINE PROTEIN NEGATIVE (NEGATIVE); URINE UROBILINOGEN 0.2 mg/dL (0.2-1.0)
[2025-01-02] MEDS: LIDOCAINE 5% TOPICAL PATCH TP ONE (08:02)
[2025-01-02] MEDS ORDERED: AZITHROMYCIN IVPB 500 MG/250 ML BAG IVPB ONE (08:38)
[2025-01-02] MEDS ORDERED: CEFTRIAXONE 1 G/50 ML PREMIX 50 ML IVPB ONE (08:38)
[2025-01-02] MEDS: AZITHROMYCIN IVPB 500 MG in DEXTROSE 5%-WATER - 250 ML IVPB ONE (09:07)
[2025-01-02] MEDS ORDERED: POLYETHYLENE GLYCOL (HEALTHYLAX) 3350 17 GM PACKET ONE (09:52)
[2025-01-02] MEDS: POLYETHYLENE GLYCOL (HEALTHYLAX) 3350 17 GM PACKET PO SCH (09:56)
[2025-01-02] MEDS: INSULIN (NOVOLOG) ASPART 100 UNITS/ML 10ML VIAL SQ SCH (10:16)
[2025-01-02] MEDS: INSULIN ASPART SLIDING SCALE (NOVOLOG) 1 VIAL SQ SCH (10:16)
[2025-01-02] MEDS ORDERED: amLODIPine BESYLATE 2.5 MG TABLET (FP) ONE (10:20)
[2025-01-02] MEDS ORDERED: metoPROLOL SUCCINATE 25 MG TAB.SR.24H (FP) PO ONE (10:20)
[2025-01-02] MEDS ORDERED: SENNOSIDES 8.6MG TABLET (FP) PO ONE (10:58)
[2025-01-02] MEDS ORDERED: INSULIN GLARGINE (LANTUS) 100 UNITS/ML UNITS SQ ONE (10:59)
[2025-01-02] MEDS: amLODIPine BESYLATE 2.5 MG TABLET (FP) PO SCH (11:04)
[2025-01-02] MEDS: metoPROLOL SUCCINATE 25 MG TAB.SR.24H (FP) PO SCH (11:04)
[2025-01-02] MEDS: FINASTERIDE 5 MG TABLET (FP) PO SCH (11:19)
[2025-01-02] MEDS: SENNOSIDES 8.8 MG/5 ML SYRUP PO SCH (11:19)
[2025-01-02] MEDS: INSULIN GLARGINE (LANTUS) 100 UNITS/ML UNITS SQ SCH (11:19)
[2025-01-02] MEDS ORDERED: ADENOSINE 6 MG/2 ML VIAL IVPUSH ONE (12:02)
[2025-01-02 12:31] VITALS: BMI 23.9
[2025-01-02] MEDS: ACETAMINOPHEN 500 MG TABLET (FP) PO PRN (14:43)
[2025-01-02] MEDS: LIDOCAINE PATCH REMOVAL MC ONE (21:45)
[2025-01-02] MEDS: HEPARIN NA (PORCINE) 5,000 UNITS/ML 1ML VIAL SQ SCH (21:45)
[2025-01-03] MEDS: LEVOTHYROXINE NA 25 MCG TABLET (FP) PO SCH (06:03)
[2025-01-03] MEDS: AZITHROMYCIN 500 MG TABLET PO SCH (06:14)
[2025-01-03] MEDS: TAMSULOSIN HCL 0.4 MG CAP PO SCH (08:25)
[2025-01-03 08:38] LABS: ABSOLUTE IMMATURE GRANULOCYTES 0.06 x10^3/uL (0.0-0.031); BASOPHILS # 0.08 x10^3/uL (0.01-0.08); EOSINOPHIL % 1.4 % (0.8-7.0); EOSINOPHILS # 0.16 x10^3/uL (0.04-0.54); HEMATOCRIT 37.8 % (40.1-51.0); MCHC 31.7 g/dl (32.3-36.5); MEAN CELL VOLUME 97.4 fl (79.0-92.2); MEAN PLT VOLUME 10.2 fl (9.4-12.4); MONOCYTE # 0.89 x10^3/uL (0.30-0.82); MONOCYTE % 7.7 % (5.3-12.2); PLATELET COUNT 211 x10^3/uL (163-337); RDW 12.8 % (12.2-16.4)
[2025-01-03 09:05] LABS: POTASSIUM 4.3 mmol/L (3.5-5.1)
[2025-01-03 09:12] LABS: CALCIUM 9.6 mg/dL (8.5-10.1)
[2025-01-03 09:13] LABS: BLOOD UREA NITROGEN 20.2 mg/dL (7-18)
[2025-01-03 09:16] LABS: CREATININE 1.3 mg/dL (0.55-1.3)
[2025-01-03] MEDS: CEFTRIAXONE 1 G/50 ML PREMIX 50 ML IVPB SCH (09:54)
[2025-01-03 14:39] VITALS: BP 114/78; PULSE 85; TEMP 98
== END 2025-01-03 16:09 | disposition home or self-care (01) | DRG 139 ==
LOC: JER 02:44 → JERBED 10:14 → J8W 11:40
PROVIDERS: ADMIT Internal Medicine; ATTEND Registered Nurse
DX: J18.9 Pneumonia, unspecified organism (principal); J44.9 Chronic obstructive pulmonary disease, unspecified; N40.0 Benign prostatic hyperplasia without lower urinary tract symptoms; I10 Essential (primary) hypertension; E11.9 Type 2 diabetes mellitus without complications; N17.9 Acute kidney failure, unspecified; C61 Malignant neoplasm of prostate; E87.20 Acidosis, unspecified
CPT/HCPCS: 36415; 71046-TC-FY; 74019-TC-FY; 74177-TC; 80048; 80053; 81003; 82962; 83605; 83690; 83735; 84100; 85025; 85610; 85730; 86850; 86900; 86901; 87086; 87186; 93005; 93010; 99285-25; J0131; J1644; Q9967

== ENCOUNTER 2025-01-23 10:15 | Day surgery (SDC) | payer OTHER ==
[2025-01-23 10:47] LABS: ABSOLUTE IMMATURE GRANULOCYTES 0.03 x10^3/uL (0.0-0.031); BASOPHILS # 0.05 x10^3/uL (0.01-0.08); EOSINOPHIL % 0.7 % (0.8-7.0); EOSINOPHILS # 0.07 x10^3/uL (0.04-0.54); HEMATOCRIT 38.4 % (40.1-51.0); HEMOGLOBIN 12.6 g/dL (13.7-17.5); MCHC 32.8 g/dl (32.3-36.5); MEAN CELL VOLUME 95.5 fl (79.0-92.2); MEAN PLT VOLUME 10.4 fl (9.4-12.4); MONOCYTE # 0.49 x10^3/uL (0.30-0.82); MONOCYTE % 4.6 % (5.3-12.2); PLATELET COUNT 202 x10^3/uL (163-337); RDW 12.4 % (12.2-16.4)
[2025-01-23 11:07] LABS: CHLORIDE 104 mmol/L (98-107); POTASSIUM 4.1 mmol/L (3.5-5.1); SODIUM 136 mmol/L (136-145)
[2025-01-23 11:09] LABS: ALBUMIN 4.1 g/dl (3.4-5.0); ANION GAP 10 mmol/L (4-13); CALCIUM 9.6 mg/dL (8.5-10.1); CO2 22 mmol/L (21-32); GLUCOSE,RANDOM 322 mg/dL (74-106)
[2025-01-23] MEDS: SODIUM CHLORIDE 250 ML IV SCH (11:10)
[2025-01-23 11:12] LABS: BILIRUBIN,DIRECT 0.1 mg/dL (0.0-0.2); CREATININE 1.5 mg/dL (0.55-1.3)
[2025-01-23 11:14] LABS: BILIRUBIN,TOTAL 0.5 mg/dL (0.2-1)
[2025-01-23 11:15] LABS: TOT PROT 7.3 g/dl (6.4-8.2)
[2025-01-23 11:44] VITALS: RESP 18; TEMP 98
[2025-01-23] MEDS: DURVALUMAB IV ONE (11:45)
[2025-01-23] MEDS: SODIUM CHLORIDE IV ONE (11:45)
[2025-01-23] MEDS: PORTA CATH FLUSH 10 ML IVPUSH PRN (13:00)
[2025-01-23 13:21] VITALS: BP 112/63; PULSE 97
== END 2025-01-23 13:30 | disposition home or self-care (01) ==
LOC: JONCCHEMO 10:15 → J7W 10:17 → JONCCHEMO 13:30
PROVIDERS: ATTEND Internal Medicine Hematology & Oncology
DX: Z51.11 Encounter for antineoplastic chemotherapy (principal); C61 Malignant neoplasm of prostate
CPT/HCPCS: 36415; 80048; 80076; 82150; 82550; 82553; 83690; 84439; 84443; 85025; 96413; J9173

== ENCOUNTER 2025-02-06 10:12 | Day surgery (SDC) | payer OTHER ==
[2025-02-06 11:11] LABS: ABSOLUTE IMMATURE GRANULOCYTES 0.03 x10^3/uL (0.0-0.031); BASOPHILS # 0.06 x10^3/uL (0.01-0.08); EOSINOPHIL % 1.3 % (0.8-7.0); EOSINOPHILS # 0.12 x10^3/uL (0.04-0.54); HEMOGLOBIN 12.5 g/dL (13.7-17.5); MCHC 32.1 g/dl (32.3-36.5); MEAN CELL VOLUME 96.1 fl (79.0-92.2); MEAN PLT VOLUME 10.5 fl (9.4-12.4); MONOCYTE # 0.64 x10^3/uL (0.30-0.82); MONOCYTE % 6.8 % (5.3-12.2); PLATELET COUNT 233 x10^3/uL (163-337); RDW 12.6 % (12.2-16.4)
[2025-02-06 11:32] LABS: CHLORIDE 112 mmol/L (98-107); POTASSIUM 3.8 mmol/L (3.5-5.1); SODIUM 140 mmol/L (136-145)
[2025-02-06 11:35] LABS: ALBUMIN 3.9 g/dl (3.4-5.0); ANION GAP 5 mmol/L (4-13); BLOOD UREA NITROGEN 21.6 mg/dL (7-18); CALCIUM 9.9 mg/dL (8.5-10.1); CO2 23 mmol/L (21-32); GLUCOSE,RANDOM 63 mg/dL (74-106)
[2025-02-06 11:38] LABS: CREATININE 1.4 mg/dL (0.55-1.3); SGOT/AST 30 U/L (15-37); SGPT/ALT 44 U/L (13-61)
[2025-02-06 11:40] LABS: BILIRUBIN,TOTAL 0.4 mg/dL (0.2-1); TOT PROT 7.1 g/dl (6.4-8.2)
[2025-02-06 11:41] LABS: ALK PHOS 193 U/L (45-117)
[2025-02-06 11:49] LABS: BILIRUBIN,DIRECT 0.1 mg/dL (0.0-0.2)
[2025-02-06 11:51] LABS: BILIRUBIN,TOTAL 0.4 mg/dL (0.2-1)
[2025-02-06] MEDS: SODIUM CHLORIDE 250 ML IV ONE (11:52)
[2025-02-06] MEDS: PORTA CATH FLUSH 10 ML IVPUSH PRN (13:45)
[2025-02-06 14:12] VITALS: PULSE 71; TEMP 98.4
[2025-02-06 14:16] VITALS: BP 109/71; RESP 18
== END 2025-02-06 14:00 | disposition home or self-care (01) ==
LOC: JONCNONCHE 10:12 → J7W 10:16 → JONCNONCHE 14:00
PROVIDERS: ATTEND Internal Medicine Hematology & Oncology
DX: Z51.11 Encounter for antineoplastic chemotherapy (principal); C34.32 Malignant neoplasm of lower lobe, left bronchus or lung
CPT/HCPCS: 36415; 80053; 80076; 82550; 82553; 83690; 84439; 84443; 85025; J9173

== ENCOUNTER 2025-04-10 12:37 | Day surgery (SDC) | payer OTHER ==
[2025-04-10] MEDS: LEUPROLIDE ACETATE (ELIGARD) 22.5 MG SYRINGE SQ ONE (13:16)
[2025-04-10 16:55] VITALS: BP 150/91; PULSE 81; RESP 20; TEMP 98.4
== END 2025-04-10 13:30 | disposition home or self-care (01) ==
LOC: JONCCHEMO 12:37
PROVIDERS: ATTEND Internal Medicine Hematology & Oncology
PROC: 3E013GC Introduction of Other Therapeutic Substance into Subcutaneous Tissue, Percutaneous Approach (ICD-10-PCS; principal; 2025-04-10)
DX: C61 Malignant neoplasm of prostate (principal); Z76.89 Persons encountering health services in other specified circumstances
CPT/HCPCS: 96372; J9217

== ENCOUNTER 2025-05-09 21:20 | Inpatient (IN) | payer OTHER ==
[2025-05-09] MEDS ORDERED: MAG HYDROX/AL HYDROX/SIMETH 30 ML UNIT-DOSE CUP ONE (22:28)
[2025-05-09] MEDS ORDERED: ACETAMINOPHEN INJECTION 100 ML ONE (22:28)
[2025-05-09] MEDS ORDERED: FAMOTIDINE 20 MG/50 ML IVPB 20 MG/50 ML MG IVPB ONE (22:28)
[2025-05-09] MEDS: FAMOTIDINE 20 MG/50 ML IVPB 20 MG/50 ML MG IVPB ONE (22:48)
[2025-05-09] MEDS: ACETAMINOPHEN 1000 MG/100 ML BAG IVPB ONE (22:48)
[2025-05-09] MEDS: MAG HYDROX/AL HYDROX/SIMETH 30 ML UNIT-DOSE CUP PO ONE (22:48)
[2025-05-09 22:50] LABS: MCHC 32.2 g/dl (32.3-36.5); MEAN CELL VOLUME 95.5 fl (79.0-92.2); MEAN PLT VOLUME 11.1 fl (9.4-12.4); RDW 14.5 % (12.2-16.4)
[2025-05-09 22:57] LABS: INR 0.95 (0.83-1.09); PROTHROMBIN TIME (PATIENT) 10.4 SEC (9.7-13.0)
[2025-05-09 23:00] LABS: ACTIVATED PTT 30.2 SECONDS (25.2-36.5)
[2025-05-09 23:08] LABS: URINE APPEARANCE CLEAR; URINE BILIRUBIN NEGATIVE (NEGATIVE); URINE COLOR YELLOW; URINE GLUCOSE (UA) TRACE (NEGATIVE); URINE KETONE NEGATIVE (NEGATIVE); URINE LEUK ESTERASE NEGATIVE (NEGATIVE); URINE NITRITE NEGATIVE (NEGATIVE); URINE PROTEIN NEGATIVE (NEGATIVE); URINE UROBILINOGEN 0.2 mg/dL (0.2-1.0)
[2025-05-09 23:26] LABS: GLUCOSE,RANDOM 262.0 mg/dL (74-106); TOT PROT 7.2 g/dl (6.4-8.2)
[2025-05-09 23:27] LABS: CO2 19.0 mmol/L (21-32)
[2025-05-09 23:28] LABS: ALK PHOS 157.0 U/L (40-150)
[2025-05-09 23:31] LABS: CREATININE 1.4 mg/dL (0.55-1.3); SGOT/AST 65.0 U/L (5-34); SGPT/ALT 56.0 U/L (0-55)
[2025-05-09 23:52] LABS: HCV DIAGNOSTIC IN-HOUSE W/RFLX NON-REACTIVE (NONREACTIVE)
[2025-05-09 23:53] LABS: HIV INTERPRETATION NEGATIVE (NEGATIVE)
[2025-05-10] MEDS: CEFTRIAXONE 1,000 MG in DEXTROSE 5%-WATER - 50 ML IVPB ONE (01:05)
[2025-05-10] MEDS ORDERED: ONDANSETRON 4 MG/2 ML VIAL IVPUSH PRN (01:09)
[2025-05-10] MEDS ORDERED: CEFTRIAXONE 1 GM/50 ML BAG ONE (01:10)
[2025-05-10] MEDS: SODIUM CHLORIDE 1,000 ML IV SCH (01:21)
[2025-05-10] MEDS: AMPICILLIN NA/SULBACTAM NA 3 GM in SODIUM CHLORIDE 100 ML IVPB SCH ×2 (01:22→08:00)
[2025-05-10] MEDS ORDERED: AMPICILLIN NA/SULBACTAM NA 3 GM/100 ML BAG IVPB ONE (01:23)
[2025-05-10] MEDS ORDERED: AMPICILLIN NA/SULBACTAM NA 3 GM in SODIUM CHLORIDE 100 ML IVPB SCH (01:36)
[2025-05-10] MEDS ORDERED: ASPIRIN 81 MG CHEWABLE TABLETS ONE (04:04)
[2025-05-10] MEDS: PANTOPRAZOLE 40 MG TABLET PO SCH (06:15)
[2025-05-10] MEDS: LEVOTHYROXINE NA 25 MCG TABLET (FP) PO SCH (06:15)
[2025-05-10] MEDS: INSULIN ASPART SLIDING SCALE (NOVOLOG) 1 VIAL SQ SCH (06:27)
[2025-05-10] MEDS: INSULIN (NOVOLOG) ASPART 100 UNITS/ML 10ML VIAL SQ SCH (06:28)
[2025-05-10 06:38] VITALS: BMI 24.5
[2025-05-10] MEDS: morphine CARPU-JECT 2 MG/1 ML DISP.SYRIN IVPUSH PRN (07:47)
[2025-05-10] MEDS: TAMSULOSIN HCL 0.4 MG CAP PO SCH (07:59)
[2025-05-10] MEDS: LACTATED RINGERS SOLUTION 1,000 ML/1,000 ML INFUS.BAG IV SCH (09:12)
[2025-05-10] MEDS: FERROUS SO4 325 MG TABLET (FP) PO SCH (09:13)
[2025-05-10] MEDS: FLUTICASONE/UMECLIDIN/VILANTER(200-62.5-25 TRELEGY ELLIPTA) INAHLER IH SCH (09:13)
[2025-05-10] MEDS: FINASTERIDE 5 MG TABLET (FP) PO SCH (09:13)
[2025-05-10] MEDS: amLODIPine BESYLATE 2.5 MG TABLET (FP) PO SCH (09:13)
[2025-05-10] MEDS: POLYETHYLENE GLYCOL (HEALTHYLAX) 3350 17 GM PACKET PO SCH (09:13)
[2025-05-10] MEDS ORDERED: ENOXAPARIN NA (PORCINE) 40 MG/0.4 ML DISP.SYRIN SQ SCH (10:00)
[2025-05-10] MEDS: BICALUTAMIDE 50 MG TABLET (FP) PO SCH (11:34)
[2025-05-10] MEDS: ERYTHROMYCIN 0.5% OPHTHALMIC OINTMENT 3.5 GM TUBE OD SCH (11:34)
[2025-05-10] MEDS: KETOROLAC TROMETHAMINE 15 MG/ML VIAL IVPUSH PRN (11:41)
[2025-05-10] MEDS: SENNOSIDES 8.8 MG/5 ML SYRUP PO SCH (21:21)
[2025-05-10] MEDS: INSULIN GLARGINE (LANTUS) 100 UNITS/ML UNITS SQ SCH (21:21)
[2025-05-11 09:35] LABS: ABSOLUTE IMMATURE GRANULOCYTES 0.04 x10^3/uL (0.0-0.031); BASOPHILS # 0.10 x10^3/uL (0.01-0.08); EOSINOPHIL % 2.0 % (0.8-7.0); EOSINOPHILS # 0.18 x10^3/uL (0.04-0.54); MCHC 32.3 g/dl (32.3-36.5); MEAN CELL VOLUME 95.8 fl (79.0-92.2); MEAN PLT VOLUME 11.1 fl (9.4-12.4); MONOCYTE # 0.64 x10^3/uL (0.30-0.82); MONOCYTE % 7.3 % (5.3-12.2); RDW 14.8 % (12.2-16.4)
[2025-05-11 09:41] LABS: INR 1.11 (0.83-1.09); PROTHROMBIN TIME (PATIENT) 12.1 SEC (9.7-13.0)
[2025-05-11 10:36] LABS: GLUCOSE,RANDOM 185.0 mg/dL (74-106); TOT PROT 6.1 g/dl (6.4-8.2)
[2025-05-11 10:37] LABS: CO2 23.0 mmol/L (21-32)
[2025-05-11 10:39] LABS: ALK PHOS 141.0 U/L (40-150)
[2025-05-11 10:41] LABS: CREATININE 1.41 mg/dL (0.55-1.3); SGOT/AST 47.0 U/L (5-34); SGPT/ALT 41.0 U/L (0-55)
[2025-05-11] MEDS ORDERED: PROPOFOL 20 ML ONE (10:56)
[2025-05-11] MEDS ORDERED: MIDAZOLAM HCL 2 MG/2 ML SINGLE DOSE VIAL ONE (10:56)
[2025-05-11] MEDS ORDERED: BUPIVACAINE HCL/PF 0.25% (2.5MG/ML) 10 ML VIAL ONE (10:57)
[2025-05-11] MEDS ORDERED: LIDOCAINE HCL/PF 2% SDV 5ML VIAL ONE (11:00)
[2025-05-11] MEDS ORDERED: ROCURONIUM BROMIDE 50 MG/5 ML SYRINGE ONE (11:02)
[2025-05-11] MEDS ORDERED: ONDANSETRON 4 MG/2 ML VIAL IVPUSH PRN ×3 (11:13→13:08)
[2025-05-11] MEDS ORDERED: PROMETHAZINE HCL 25 MG/1 ML VIAL IVPB PRN ×2 (11:13→13:08)
[2025-05-11] MEDS ORDERED: LACTATED RINGERS SOLUTION 1,000 ML IV SCH (11:15)
[2025-05-11] MEDS: BUPIVACAINE HCL/PF 0.25% (2.5MG/ML) 10 ML VIAL IJ ONE (11:45)
[2025-05-11] MEDS ORDERED: ACETAMINOPHEN INJECTION 100 ML ONE (11:54)
[2025-05-11] MEDS ORDERED: ONDANSETRON 4 MG/2 ML VIAL ONE (11:57)
[2025-05-11] MEDS ORDERED: DEXAMETHASONE SOD PHOSPHATE 4 MG/1 ML VIAL ONE (11:57)
[2025-05-11] MEDS ORDERED: SUGAMMADEX SODIUM 200 MG/2 ML VIAL ONE (12:06)
[2025-05-11] MEDS ORDERED: LACTATED RINGERS SOLUTION 1,000 ML/1,000 ML INFUS.BAG IV SCH (13:08)
[2025-05-11] MEDS: ACETAMINOPHEN 1000 MG/100 ML BAG IVPB SCH (13:10)
[2025-05-11] MEDS: ERYTHROMYCIN 0.5% OPHTHALMIC OINTMENT 3.5 GM TUBE OD SCH (13:53)
[2025-05-11] MEDS: LACTATED RINGERS SOLUTION 1,000 ML IV SCH (14:25)
[2025-05-11] MEDS: AMPICILLIN NA/SULBACTAM NA 3 GM in SODIUM CHLORIDE 100 ML IVPB SCH (14:26)
[2025-05-11] MEDS: INSULIN (NOVOLOG) ASPART 100 UNITS/ML 10ML VIAL SQ SCH (16:08)
[2025-05-11] MEDS: morphine CARPU-JECT 2 MG/1 ML DISP.SYRIN IVPUSH PRN (16:09)
[2025-05-11] MEDS: INSULIN ASPART SLIDING SCALE (NOVOLOG) 1 VIAL SQ SCH (16:09)
[2025-05-11 19:53] VITALS: RESP 18
[2025-05-11] MEDS: SENNOSIDES 8.8 MG/5 ML SYRUP PO SCH (21:17)
[2025-05-11] MEDS: INSULIN GLARGINE (LANTUS) 100 UNITS/ML UNITS SQ SCH (21:17)
[2025-05-12] MEDS: LEVOTHYROXINE NA 25 MCG TABLET (FP) PO SCH (06:10)
[2025-05-12] MEDS: PANTOPRAZOLE 40 MG TABLET PO SCH (06:10)
[2025-05-12] MEDS: FINASTERIDE 5 MG TABLET (FP) PO SCH (09:28)
[2025-05-12] MEDS: TAMSULOSIN HCL 0.4 MG CAP PO SCH (09:28)
[2025-05-12] MEDS: FERROUS SO4 325 MG TABLET (FP) PO SCH (09:28)
[2025-05-12] MEDS: amLODIPine BESYLATE 2.5 MG TABLET (FP) PO SCH (09:28)
[2025-05-12] MEDS: BICALUTAMIDE 50 MG TABLET (FP) PO SCH (09:29)
[2025-05-12] MEDS: POLYETHYLENE GLYCOL (HEALTHYLAX) 3350 17 GM PACKET PO SCH (09:31)
[2025-05-12] MEDS ORDERED: FLUTICASONE/UMECLIDIN/VILANTER(200-62.5-25 TRELEGY ELLIPTA) INAHLER IH SCH (10:00)
[2025-05-12 11:41] LABS: MCHC 32.4 g/dl (32.3-36.5); MEAN CELL VOLUME 95.7 fl (79.0-92.2); MEAN PLT VOLUME 11.5 fl (9.4-12.4); RDW 14.5 % (12.2-16.4)
[2025-05-12 12:49] LABS: GLUCOSE,RANDOM 268.0 mg/dL (74-106); TOT PROT 6.5 g/dl (6.4-8.2)
[2025-05-12 12:50] LABS: CO2 21.0 mmol/L (21-32)
[2025-05-12 12:51] LABS: ALK PHOS 147.0 U/L (40-150)
[2025-05-12 12:54] LABS: CREATININE 1.41 mg/dL (0.55-1.3); SGOT/AST 49.0 U/L (5-34); SGPT/ALT 50.0 U/L (0-55)
[2025-05-12 13:18] VITALS: BP 130/86; PULSE 97; TEMP 98.4
== END 2025-05-12 13:49 | disposition home or self-care (01) | DRG 263 ==
LOC: JER 21:20 → JERBED 05-10 00:55 → J5S 05-10 03:37
PROVIDERS: ADMIT Hospitalist
PROC: 0FT44ZZ Resection of Gallbladder, Percutaneous Endoscopic Approach (ICD-10-PCS; principal; 2025-05-11 16:15)
DX: K81.0 Acute cholecystitis (principal); K81.1 Chronic cholecystitis; C79.82 Secondary malignant neoplasm of genital organs; E03.9 Hypothyroidism, unspecified; E11.9 Type 2 diabetes mellitus without complications; N40.0 Benign prostatic hyperplasia without lower urinary tract symptoms; I10 Essential (primary) hypertension; J44.9 Chronic obstructive pulmonary disease, unspecified; Z85.118 Personal history of other malignant neoplasm of bronchus and lung
CPT/HCPCS: 36415; 71046-TC-FY; 74177-TC; 76705-TC; 80053; 81003; 82150; 82962; 83690; 83735; 84153; 84484; 85025; 85027; 85610; 85730; 86803; 86850; 86900; 86901; 87086; 87389; 88304-TC; 93005; 93010; 94760; 97116-GP; 97161-GP; 99285-25; Q9967